=== PATIENT | female | born 1960 | race Caucasian/White ===

== ENCOUNTER → 2017-08-01 07:34 | Outpatient (CLI) | payer OTHER, SELFPAY ==
--- NOTE | 2017-08-01 07:37 | BI_ITS ---
MAMMOGRAPHY - BILATERAL SCREENING 3-D GILMA SYNTHESIS REASON FOR EXAM: Female, 57 years old. Bilateral Screening 3-D tomosynthesis PERTINENT HISTORY: No significant family history. TECHNIQUE: 2-D mammograms and 3-D Gilma synthesis of the breast (s) were performed. CAD was performed. COMPARISON: None. FINDINGS: The breast composition is composed of scattered fibroglandular density. Scattered benign calcifications are seen. No dense spiculated masses or suspicious microcalcifications are identified. No architectural distortion is identified. There is no skin thickening or retraction. There has been no significant change since the prior study. BI/SCREENING MAMM (CAD), BILAT IMPRESSION: No mammographic signs of malignancy. Routine yearly mammograms recommended. ASSESSMENT CATEGORY: BIRADS Category 1: Negative. A letter regarding these results will be sent to the patient by the facility within 30 days. FOLLOW UP RECOMMENDATION: Yearly follow up mammogram recommended. (A) Approximately 10% of breast cancers are not detected by mammography. A normal mammogram should not delay biopsy of a clinically suspicious abnormality. Electronically Signed: Pramod López MD at 8:43 EDT , Service support ,
== END ==
PROVIDERS: Family Provider Family Medicine; PCP Family Medicine; Visit Provider Obstetrics & Gynecology
DX: Z12.31 Encounter for screening mammogram for malignant neoplasm of breast (principal)
CPT/HCPCS: 77063; 77067

== ENCOUNTER → 2018-04-13 14:58 | Outpatient (CLI) | payer OTHER, SELFPAY ==
[2018-03-02 15:11] VITALS: BMI 22.4
== END ==
PROVIDERS: Family Provider Family Medicine; PCP Family Medicine; Referring Provider Family Medicine; Visit Provider Family Medicine
DX: R30.0 Dysuria (principal)
CPT/HCPCS: 87086

== ENCOUNTER → 2018-04-26 14:07 | Outpatient (CLI) | payer OTHER, SELFPAY ==
[2018-04-26 11:55] VITALS: BMI 22.4
--- OUTSIDE RECORDS SUMMARY | 2018-06-28 14:41 | XMS RPT_ITS ---
:1960 Author Organization OHIP Care Team Providers Name Role Phone ALESSANDRO GRAHAM III Referring Unavailable CEBUL IIIALESSANDRO Attending Unavailable CEBUL IIIALESSANDRO Attending Unavailable Paul Almanza Attending Unavailable Paul Almanza Referring Unavailable Cebul III, Alessandro Primary Care Unavailable Catalina Parrish Attending Unavailable Cebul III Alessandro Referring Unavailable Frances Tineo Attending Unavailable Frances Tineo Referring Unavailable Cebul III, Alessandro Primary Care Unavailable Frances Tineo Attending Unavailable Cebul III, Alessandro Referring Unavailable Catalnia Parrish Attending Unavailable Catalina Parrish Referring Unavailable Cebul III, Alessandro Primary Care Unavailable PROBLEMS PROBLEMS DATE TYPE CONDITION / CODE ATTENDING STATUS SOURCE 04/26/2018 Unknown N76.0 - Acute Catalina Parrish Active [facility] / Community N76.0(ICD-10) Hospital Repository 04/20/2018 Active Unknown / CEBUL III, Active [facility] UNK(Unknown) ALESSANDRO A [facility] [place] Repository 03/02/2018 Unknown Z01.419 - Encounter Vance Tineo for gynecological [facility] (general) (routine) Repository without abnormal findings / Z01.419(ICD-10) 01/10/2018 Active Other penitentiary NA Active [facility] (current) drug [facility] [place] therapy / Repository Z79.899(ICD-10) 08/01/2017 Unknown Z12.31 - Encounter Vance Tineo for screening [facility] mammogram [facility] malignant neoplasm Repository of breast / Z12.31(ICD-10) PROCEDURES PROCEDURES No Procedure Records FoundRESULTS RESULTS Observed: 04/26/2018 Status: F Source: [place] CULTURE, GENITAL 2:27 PM [facility] COMPREHENSIVE REPOSITORY Reason for Exam: vaginitis Gram Stain Score= 4 Interpretation: 0-3 Normal, 4-6 Intermediate, 7-10 Positive BV Gram Stain 1+ White Blood Cells 1+ Epithelial cells No organisms seen Gent Cult Comp Normal genital jaclyn isolated Performed By: #### M100.1600 #### [facility] [address] [place], [address] 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 VISIT Observed: 04/26/2018 Status: F Source: [place] REPORT 1:20 PM [facility] REPOSITORY [facility] [address] [place] [address] OFFICE VISIT Date of Service: 04/26/18 MR#: [id number] Acct: [id number] Name: ANGELICA PEDRO Rep #: [id number] : 1960 Provider: YO Parrish Age/Sex: 58/F Location: [facility] Status: Signed Intake Vital Signs04/26/18 Body Mass Index (BMI) 22.4 04/26/18 Height 5 ft 3 in 04/26/18 Weight: 127 lb 8 oz 04/26/18 Body Mass Index (BMI) 22.6 04/26/18 Blood Pressure 112/78 Intake Visit Reasons: ongoing vaginal irritation Photographic Equipment Assembler Required: No Is patient in pain?: No Allergies azithromycin [From Zithromax Z-Mike] Allergy (Verified 04/26/18 11:53) Other Sulfa (Sulfonamide Antibiotics) Allergy (Verified 04/26/18 11:53) Other codeine Adverse Reaction (Verified 04/26/18 11:53) Nausea Medications phenylephrine 10 mg tablet 10 mg PO ONCE 03/02/18 [History Confirmed 04/26/18] estradiol 0.01% (0.1 mg/gram) vaginal cream See Rx Instructions VAGINAL .COMPLEX #42.5 g 04/26/18 [Rx Confirmed 04/26/18] Post menopausal: No Patient : No : No PFSH Medical History Anxiety (Acute) Osteoporosis (Acute) Surgical History H/O hand surgery (Acute) Tibia and fibula open fracture, right (Acute) Family History Father Heart disease Mother Cancer Osteoporosis Social History number of children: 2 current occupational status: employed current occupation: [email or web address] Smoking Status: Never smoker alcohol intake: current alcohol intake frequency: holidays/special occasions only substance use type: does not use seatbelt use: always do you feel safe at home: Yes 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 Saw PCP who gave cipro but urine culture was negative. She is having vaginal dryness and dyspareunia. Pregancy History 2 Elective abortions Hx Para 2 Spontaneous abortions Past Pregnancies Del. DatName GA/WeeksOutcome Route Bt Omega Car LgAnestheDEel LocaProviderFOB e ht en ia tn Unknown Sugar 1989 Unknown Rosalva 1991 ROS Const Constitutional: Reports system reviewed and no additional complaints, except as docu GI GI: Denies abdominal pain or change in bowel habits : Reports as per HPI Exam Const General: cooperative, no acute distress Nutritional Appearance: well nourished Orientation: oriented x3 External Female Exam: normal external appearance Speculum Exam - Vagina: atrophic vaginal mucosa Speculum Exam - Cervix: normal appearance of the cervix Bimanual Exam- Vagina AND Uterus: normal bimanual exam Bimanual Exam- Adnexa, other: normal adnexae Results POCBVBLUE Office BVBlue Test Negative Last Edit by Therese Angel on 04/26/18 12:47 Assessment AND Plan Problems 1. Vaginal irritation N89.8 2. Atrophic vaginitis N95.2 Plan GABI BV and comp vag culture-call only if positive Discussed benefits, risks of vaginal estrogen cream Rx sent RTO 4 weeks Orders Orders: Medications New: estradiol 0.01%(0.1mg/gram) (Estrace) pea sized amount VAGINAL every other day X 4 weeks t hen twice a week; 42.5 grams 2RF Coding Level of Care Code Off vis,est,level 3 Diagnoses Vaginal irritation N89.8 Atrophic vaginitis N95.2 04/26/18 1320 <Electronically signed by Catalina LAL> Date Catalina LAL Cosigner Signature: Date (if applicable) CC: Observed: 04/20/2018 Status: F Source: [place] URINE CULTURE 9:47 PM [facility] REPOSITORY Sp. Request/Comment: - Specimen received in preservative Culture Result - No growth (<1,000 CFU/ml) Performed By: #### URCUL #### [facility] [place] [address] [place], [place] [address] PROGRESS Observed: 04/20/2018 Status: COMPLETED Source: [place] 10:35 AM [facility] REPOSITORY HNO ID: [id number] Author: Alessandro Graham III Service: (none) Author Type: Physician Type: Progress Notes Filed: 04/20/2018 12:52 PM Note Text: SUBJECTIVE: This is a 58 year old female that is here today for 1. 2 wk hx of urinary frequency, dysuria, incontinence. Fluctuating sx. Burning in vaginal introitus. Recently constipated, though she had 3 normal stools yesterday. Staying well hydrated. Menopause at age 52. Painful intercourse. Never had UTI. Denies possibility of STD. 2. pre-flight anxiety--asks about xanax for lup-coming flight. 3. tubular adenoma of colon--2015 PAST MEDICAL HISTORY Diagnosis Date - Acute infective polyneuritis (HCC) 1996 gu[place]an barre - Anxiety 01/11/2013 - Broken leg 06/09/2013 right tibia and fibula - GERD (gastroesophageal reflux disease) - History of colonoscopy with polypectomy 05/09/14 tubular adenoma of cecum - Hyperlipidemia LDL goal < 130 02/07/2014 - Idiopathic hypercalciuria 03/19/2016 - Menopause 01/11/2013 - Osteoporosis - Other acne Current Outpatient Prescriptions on File Prior to Visit: PSEUDOEPHEDRINE HCL (SUDAFED ORAL) Take by mouth as directed. ibuprofen (MOTRIN) 200 mg tablet Take 200 mg by mouth every 6 hours as needed. ALPRAZolam (XANAX) 0.5 mg tablet 1 po 1 hrs before flight prn anxiety Ca-D3-mag sg-vszr-alh-donnell-bor (CALTRATE 600+D PLUS MINERALS) 600 mg calcium- 800 unit-40 mg chew Take by mouth. No current facility-administered medications on file prior to visit. FAMILY HISTORY Problem Relation Age of Onset - Hypertension Mother - Diabetes Mother - Cancer Mother Lymphoma - Heart Father 50 [place] - Ischemic Heart Disease Brother 61 coronary stent - other (alcoholism) Sister - None Sister - None Sister - other (Down's syndrome) Sister Social History Substance Use Topics - Smoking status: Never Smoker - Smokeless tobacco: Never Used - Alcohol use Yes Comment: RARELY BP 134/80 (BP Site: Right Arm, BP Position: Sitting, BP Cuff Size: Regular Adult) Pulse 78 Resp 16 Wt 55.8 kg (123 lb) LMP 09/18/2012 BMI 21.79 kg/m? BP 134/80 (BP Site: Right Arm, BP Position: Sitting, BP Cuff Size: Regular Adult) Pulse 78 Resp 16 Wt 55.8 kg (123 lb) LMP 09/18/2012 BMI 21.79 kg/m? . OBJECTIVE: APPEARANCE Well appearing, alert, in no acute distress, well-hydrated, well nourished. and looks ill ABDOMEN bowel sounds normoactive, no bruits, soft, non-tender, non-distended, without organomegaly or palpable masses, no tenderness to palpation FEMALE Normal external genitalia, normal vagina and normal vaginal tone and normal cervix. No ulcers or discharge ASSESSMENT: probable UTI hx of tubular adenoma pre-flight anxiety PLAN: stay well hydrated cipro 500mg twice/day x 5 days avoid calcium during the course of cipro urine culture give MyChart progress report on 04/22 refer for colonoscopy xanax 0.5 mg before flight Alessandro Graham III MD PDMP website checked and validated. No controlled substance prescriptions were reported. 04/20/2018 by DANII Al MD, III MD CNOV Observed: 04/20/2018 Status: COMPLETED Source: [place] 10:20 AM [facility] REPOSITORY [facility] ANGELICA PEDRO ([id number]) 1960 F Date Time Provider Department 04/20/18 10:20 AM ALESSANDRO GRAHAM IIIESTHER During your visit today, we recorded the following information about you: Pulse Respiration Blood pressure Weight 78/minute 16/minute 134/80 55.8 kg Alessandro Graham III MD 04/20/2018 12:52 PM Signed SUBJECTIVE: This is a 58 year old female that is here today for 1. 2 wk hx of urinary frequency, dysuria, incontinence. Fluctuating sx. Burning in vaginal introitus. Recently constipated, though she had 3 normal stools yesterday. Staying well hydrated. Menopause at age 52. Painful intercourse. Never had UTI. Denies possibility of STD. 2. pre-flight anxiety--asks about xanax for lup-coming flight. 3. tubular adenoma of colon--2015 PAST MEDICAL HISTORY Diagnosis Date - Acute infective polyneuritis (HCC) 1996 [place]re - Anxiety 01/11/2013 - Broken leg 06/09/2013 right tibia and fibula - GERD (gastroesophageal reflux disease) - History of colonoscopy with polypectomy 05/09/14 tubular adenoma of cecum - Hyperlipidemia LDL goal < 130 02/07/2014 - Idiopathic hypercalciuria 03/19/2016 - Menopause 01/11/2013 - Osteoporosis - Other acne Current Outpatient Prescriptions on File Prior to Visit: PSEUDOEPHEDRINE HCL (SUDAFED ORAL) Take by mouth as directed. ibuprofen (MOTRIN) 200 mg tablet Take 200 mg by mouth every 6 hours as needed. ALPRAZolam (XANAX) 0.5 mg tablet 1 po 1 hrs before flight prn anxiety Ca-D3-mag kr-htyu-nwp-donnell-bor (CALTRATE 600+D PLUS MINERALS) 600 mg calcium- 800 unit-40 mg chew Take by mouth. No current facility-administered medications on file prior to visit. FAMILY HISTORY Problem Relation Age of Onset - Hypertension Mother - Diabetes Mother - Cancer Mother Lymphoma - Heart Father 50 [place] - Ischemic Heart Disease Brother 61 coronary stent - other (alcoholism) Sister - None Sister - None Sister - other (Down's syndrome) Sister Social History Substance Use Topics - Smoking status: Never Smoker - Smokeless tobacco: Never Used - Alcohol use Yes Comment: RARELY BP 134/80 (BP Site: Right Arm, BP Position: Sitting, BP Cuff Size: Regular Adult) Pulse 78 Resp 16 Wt 55.8 kg (123 lb) LMP 09/18/2012 BMI 21.79 kg/m? BP 134/80 (BP Site: Right Arm, BP Position: Sitting, BP Cuff Size: Regular Adult) Pulse 78 Resp 16 Wt 55.8 kg (123 lb) LMP 09/18/2012 BMI 21.79 kg/m? . OBJECTIVE: APPEARANCE Well appearing, alert, in no acute distress, well- hydrated, well nourished. and looks ill ABDOMEN bowel sounds normoactive, no bruits, soft, non-tender, non-distended, without organomegaly or palpable masses, no tenderness to palpation FEMALE Normal external genitalia, normal vagina and normal vaginal tone and normal cervix. No ulcers or discharge ASSESSMENT: probable UTI hx of tubular adenoma pre-flight anxiety PLAN: stay well hydrated cipro 500mg twice/day x 5 days avoid calcium during the course of cipro urine culture [facility] on 04/22 refer for colonoscopy xanax 0.5 mg before flight Alessandro Graham III MD PDMP website checked and validated. No controlled substance prescriptions were reported. 04/20/2018 by DANII Al MD, III MD Frank A Cebul, III MD 04/20/2018 10:59 AM Signed PLAN: stay well hydrated cipro 500mg twice/day x 5 days avoid calcium during the course of cipro urine culture give MyChart progress report on 04/22 Alessandro Graham III MD Referring Provider: SELF [200] Allergies As of Date: 04/20/2018 Noted Allergy Reaction FOSAMAX (ALENDRONATE SODIUM) 02/24/2016 5 - Intolerance Comments: heartburn MINOCYCLINE 12/18/2004 SULFA (SULFONAMIDE ANTIBIOTICS) 12/18/2004 5 - Intolerance Comments: stomach pain Date Reviewed: 04/20/2018 Reviewed by: Sugar Nicole - Fully Assessed Reason for Visit: UTI [116] Cmt: burning in vagina and with urination frequency/urgency x 2 weeks Reason For Visit History Recorded Primary Visit Diagnosis:Dysuria [R30.0] Other Visit Diagnoses:History of colonoscopy with polypectomy [Z98.890, Z86.010] Tubular adenoma of colon [D12.6] Anxiety [F41.9] Order(s):URINE CULTURE [SQURCUL] Order #: [id number] UA CHEMSTRIP ONLY [SQUA] Order #: [id number] FUTURE ciprofloxacin HCl (CIPRO) 500 mg tabletTake 1 tablet by mouth twice daily for 5 days.Disp: 10 tabletRfl: 0 CONSULT TO GASTROENTEROLOGY [9010] Order #: [id number]: 1 ALPRAZolam (XANAX) 0.5 mg tablet1 po 1 hrs before flight prn anxietyDisp: 10 tabletRfl: 0 Prescriptions as of 04/20/2018 Sig: ALPRAZOLAM 0.5 MG TABLET 1 po 1 hrs before flight prn * SUDAFED ORAL Take by mouth as directed. IBUPROFEN 200 MG TABLET Take 200 mg by mouth every 6 * CA 600 MG-D3 800 UNIT-MAG OX * Take by mouth. CIPROFLOXACIN 500 MG TABLET Take 1 tablet by mouth twice * Problem List As Of Date 04/20/2018 Noted Resolved Other acne [L70.8] 06/30/2011 ESOPHAGEAL REFLUX [K21.9] INVALID FOR* Palpitations [R00.2] INVALID FOR*06/30/2011 Dermatophytosis of nail [B35.1] INVALID FOR*06/30/2011 Bunion [M21.619] INVALID FOR*06/30/2011 Other hammer toe (acquired) [M20.40] INVALID FOR*06/30/2011 Menometrorrhagia [N92.1] INVALID FOR*10/16/2014 Cervical polyp [N84.1] INVALID FOR*10/16/2014 Menopause [Z78.0] INVALID FOR* Anxiety [F41.9] INVALID FOR* Osteopenia [M85.80] INVALID FOR* Hyperlipidemia with target LDL less than 130 [E*INVALID FOR* Special screening for malignant neoplasms, colo*INVALID FOR*05/09/2014 History of colonoscopy with polypectomy [Z98.89*INVALID FOR* More... Colon polyps [K63.5] INVALID FOR*06/06/2015 Idiopathic hypercalciuria [R82.994] INVALID FOR* Perennial allergic rhinitis [J30.89] INVALID FOR* Dysfunction of eustachian tube [H69.80] INVALID FOR* Family history of ischemic heart disease [Z82.4*INVALID FOR* Abscess of calf [L02.419] INVALID FOR*01/13/2018 Tubular adenoma of colon [D12.6] INVALID FOR* Other instructions from your clinician: PLAN: stay well hydrated cipro 500mg twice/day x 5 days avoid calcium during the course of cipro urine culture give MyChart progress report on 04/22 Alessandro Graham III Prescriptions ordered this encounter Disp Refills Start End CIPROFLOXACIN 500 MG TABLET 10 t* 0 04/20/2018 04/25/2018 Class: Print RX Route: ORAL Sig: Take 1 tablet by mouth twice daily for 5 days. ALPRAZOLAM 0.5 MG TABLET 10 t* 0 04/20/2018 05/21/2018 Class: Print RX Si po 1 hrs before flight prn anxiety Medications Discontinued During This Encounter ALPRAZolam (XANAX) 0.5 mg tablet 30 t* 0 02/27/2016 04/20/2018 Class: Call Rx Si po 1 hrs before flight prn anxiety Disc: Reason for discontinue is not on file. Encounter Status:Closed by ALESSANDRO GRAHAM III, MD on 04/20/18 Observed: 04/13/2018 Status: F Source: [place] CULTURE, URINE 3:06 PM [facility] REPOSITORY Urine Culture Culture exhibits no growth. Performed By: #### M100.0650 #### [facility] [address] 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 [place] [address] OFFICE VISIT Date of Service: 03/02/18 MR#: [id number] Acct: [id number] Name: ANGELICA PEDRO Rep #: [id number] : 1960 Provider: Frances Tnieo MD Age/Sex: 58/F Location: [facility] Status: Signed Intake Vital Signs03/02/18 Height 5 ft 3 in 03/02/18 Weight: 126 lb 6 oz 03/02/18 Body Mass Index (BMI) 22.4 03/02/18 Blood Pressure 110/68 Intake Visit Reasons: ANNUAL Is patient in pain?: No Allergies azithromycin [From Zithromax Z-Mike] Allergy (Verified 03/02/18 15:13) Other Sulfa (Sulfonamide Antibiotics) Allergy (Verified 03/02/18 15:13) Other codeine Adverse Reaction (Verified 03/02/18 15:13) Nausea Medications phenylephrine 10 mg tablet 10 mg PO ONCE 03/02/18 [History Confirmed 03/02/18] Is last menstrual period known: No Post menopausal: No Patient : No : No PFSH Medical History Anxiety (Acute) Osteoporosis (Acute) Surgical History H/O hand surgery (Acute) Tibia and fibula open fracture, right (Acute) Family History Father Heart disease Mother Cancer Osteoporosis Social History number of children: 2 current occupational status: employed current occupation: [email or web address] Smoking Status: Never smoker alcohol intake: current alcohol intake frequency: holidays/special occasions only substance use type: does not use seatbelt use: always do you feel safe at home: Yes 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 DatName GA/WeeksOutcome Route [facility] Car LgAnesthesDel LocaProviderFOB e ht en tn Unknown Sugar 1989 Unknown Rosalva 1991 HPI ANNUAL: Details: ANGELICA PEDRO is a 58 year old who presents for annual exam. Last PAP: 16 normal neg hpv History of abnormal PAP: no Last mammogram: 07/20 nl History of abnormal mammogram: no Colon cancer screening: up to date Other preventative health care screenings: pcp Female Reproductive History Questions: Metorrhagia: No, Sexually active: Yes, Dyspareunia: No, PCB: No Menopausal Symptoms: Yes hot flashes, No night sweats, No weight change, No mood changes, No difficulty concentrating, No sleep problems, No change in libido Menopausal Treatment: Yes OTC treatments ROS Const Constitutional: Reports as per HPI; denies poor appetite, fatigue, increased appetite, weight gain, weight loss or night sweats Cardio Card: Denies chest pain Resp Resp: Denies dyspnea or cough GI GI: Reports as per HPI; denies bloating, abdominal pain, constipation, vomiting or nausea : Reports as per HPI, urinary urgency, urinary incontinence, urinary frequency, other and hot flashes; denies blood in urine, vaginal odor, vaginal itching, vaginal dryness, vaginal discharge, pelvic pain, painful urination, difficulty urinating, prolapse symptoms or nipple discharge Skin Skin/Breast: Denies breast pain, breast skin changes, nipple discharge, breast lump or changing lesions Psych Psych: Denies difficulty concentrating or change in sex drive Exam Const General: cooperative, healthy appearing, comfortable, no acute distress, well developed, well groomed [facility] Head: normal to inspection, normocephalic Ears: hearing grossly normal bilaterally, external ears normal Nose: external nose normal Face and sinus: normal facial exam Neck Neck: normal visual inspection, full ROM, no lymphadenopathy Thyroid: thyroid normal Chest Chest palpation AND inspection: normal inspection of the chest Breast inspection: normal inspection of the breasts, normal inspection of the axillae Breast palpation: normal palpation of the breasts, normal palpation of the axillae, no axillary lymphadenopathy Resp Effort AND Inspection: normal respiratory effort GI Inspection: normal to inspection, non-distended Palpation: no guarding, soft, no hepatosplenomegaly General: bladder normal to palpation External Female Exam: normal external appearance, normal appearance of the urethra, no lesions Urethra: normal appearance of the urethra, normal palpation Speculum Exam - Vagina: normal appearance of the vagina, normal vaginal discharge Speculum Exam - Cervix: normal appearance of the cervix, no cervical discharge, no lesions, nontender Bimanual Exam- Vagina AND Uterus: No cervical tenderness, normal bimanual exam, uterine size normal, bladder normal to palpation, uterine mobility normal, uterine consistency normal, uterus non-tender, no cervical motion tenderness Bimanual Exam- Adnexa, other: normal adnexae, no adnexal masses, adnexae non-tender Skin General: no rashes or lesions noted Neuro General: alert, moves all extremities, no focal motor deficits Extrem General: no pedal edema, normal to inspection Psych Appearance: grossly normal Mental Status: mental status grossly normal Affect: normal affect Speech and Movement: speech and movement normal Attitude: cooperative Assessment AND Plan Problems 1. Encounter for gynecological examination without abnormal finding Z01.419 Plan Cervical cancer screening: pap 2016 nl Breast cancer screening: mamm normal other health maintenance examination reviewed and orders placed if needed. Encouraged maintenance of a healthy weight and active lifestyle and handout given. Annual exam handout including recommendations for good health guidelines, Calcium/vitamin D recommendations, and basic screening information given. Problem list up to date, see problem list details for any additional plan information. Follow up in one year for annual health maintenance exam or sooner if needed. Coding Level of Care Code Off vis,est,prev 40-64yrs Diagnoses Encounter for gynecological examination without abnormal finding Z01.419 Gynecological examination findings: abnormal findings ABSENT 03/02/18 1611 <Electronically signed by Frances Tineo MD> Date Frances Tineo MD Cosigner Signature: Date (if applicable) CC: PROGRESS Observed: 01/13/2018 Status: COMPLETED Source: [place] 2:11 PM [facility] REPOSITORY O ID: [id number] Author: Alessandro Graham III Service: (none) Author Type: Physician Type: Progress Notes Filed: 01/13/2018 2:54 PM Note Text: SUBJECTIVE: Chief Complaint: Angelica Pedro is a 57 year old female who presents for a wellness evaluation. New concerns today include 1. lab review-hyperlipidemia with strong FHx of heart dis. 10 yr risk of ASHD 4.6%--discussion 2. uses xanax only if she flies in a plane. Exercises regularly - Yes Mammogram is due - No Last mammogram was 2017 Colon cancer screening is up to date - Yes Last Colonoscopy was done 2015 Cholesterol screening is up to date - Yes Current Outpatient Prescriptions on File Prior to Visit: PSEUDOEPHEDRINE HCL (SUDAFED ORAL) Take by mouth as directed. ALPRAZolam (XANAX) 0.5 mg tablet 1 po 1 hrs before flight prn anxiety Ca-D3-mag gb-ukdt-urn-donnell-bor (CALTRATE 600+D PLUS MINERALS) 600 mg calcium- 800 unit-40 mg chew Take by mouth. ibuprofen (MOTRIN) 200 mg tablet Take 200 mg by mouth every 6 hours as needed. No current facility-administered medications on file prior to visit. PAST MEDICAL HISTORY Diagnosis Date - Acute infective polyneuritis (HCC) 1996 gu[place] barre - Anxiety 01/11/2013 - Broken leg 06/09/2013 right tibia and fibula - GERD (gastroesophageal reflux disease) - History of colonoscopy with polypectomy 05/09/14 tubular adenoma of cecum - Hyperlipidemia LDL goal < 130 02/07/2014 - Idiopathic hypercalciuria 03/19/2016 - Menopause 01/11/2013 - Osteoporosis - Other acne MENSTRUAL HISTORY PERIOD REGULARITY: FLOW CHARACTERISTICS: DYSMENORRHEA: CYCLIC SYMPTOMS: HORMONE REPLACEMENT: PAST SURGICAL HISTORY Procedure Laterality Date - BMD BONE DENSITY DEXA 02/22/2017 [facility] - COLONOSCOP W/ OR W/O [facility] SPEC 05/09/2014 Colonoscopy - COLONOSCOP W/ OR W/O [facility] SPEC 06/06/15 Colonoscopy - EXCIS TUMOR/AVM,DEEP,HAND/FINGR 1973 BENIGN - PAST SURGICAL HISTORY OF 06/10/2013 Right leg surgery (plate and 5 screws) FAMILY HISTORY Problem Relation Age of Onset - Hypertension Mother - Diabetes Mother - Cancer Mother Lymphoma - Heart Father 50 [place] - Ischemic Heart Disease Brother 61 coronary stent - other (alcoholism) Sister - None Sister - None Sister - other (Down's syndrome) Sister Social History Marital status: Spouse name: Years of education: 12 Number of children: 2 Occupational History 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 [employer]* Social History Main Topics Smoking status: Never Smoker Smokeless tobacco: Never Used Alcohol use: Yes Comment: RARELY Drug use: No Sexual activity: Yes Partners with: Male control/protection: Vasectomy Comment: Postmenopausal Immunization History Administered Date(s) Administered Tdap (Age 7+) 11/17/2010 ACTIVE PROBLEM LIST Esophageal Reflux Menopause Anxiety Osteopenia Hyperlipidemia With Target Ldl Less Than 130 History of Colonoscopy With Polypectomy Idiopathic Hypercalciuria Perennial Allergic Rhinitis Dysfunction of Eustachian Tube Family History of Ischemic Heart Disease Abscess of Calf REVIEW OF SYSTEMS: GENERAL:Denies fever, chills, night sweats, or changes in weight. DERMATOLOGIC: EYES: ENT: RESPIRATORY: Denies any cough, dyspnea, or wheezing. CARDIOVASCULAR: Denies any chest pain with exertion or at rest, palpitations, syncope, or edema. BREASTS: GASTROINTESTINAL: Denies any nausea, vomiting, abdominal pain, heartburn, changes in bowel habit, Denies any rectal bleeding. GENITOURINARY: MUSCULOSKELETAL: Denies any joint swelling, crepitus, joint pain, or loss of range of motion., Denies back pain. NEURO: Denies any headaches, tremors, dizziness, vertigo, memory loss, confusion., Denies weakness, numbness or tingling.. PSYCHIATRIC: Denies any sleeping problems, history of abuse, marital discord., Denies any anxiety or depression. HEMATOLOGIC/LYMPHATIC/IMMUNOLOGIC: Denies anemia, bruising, bleeding abnormalities. ENDOCRINE: Denies any heat or cold intolerance, polyuria or polydipsia. OBJECTIVE: PHYSICAL EXAMINATION: BP 120/75 Pulse 73 Resp 16 Ht 160 cm (5' 3) Wt 56.7 kg (125 lb) LMP 09/18/2012 BMI 22.14 kg/m? GENERAL APPEARANCE: Well appearing, alert, in no acute distress, well-hydrated, well nourished. SKIN: Skin color, texture, turgor normal, no suspicious rashes or lesions HEAD: No significant findings. EYES: EARS: NOSE/SINUSES: OROPHARYNX: NECK: Supple, no lymphadenopathy, normal thyroid, no carotid bruits and no JVD BACK: Back symmetric, Normal curvature, No CVAT. LUNGS: Normal breath sounds, Clear to auscultation, No wheezes, No crackles HEART:Normal PMI, Regular rate and rhythm, Normal heart sounds, S1 and S2 and No murmurs. BREASTS: Exam deferred ABDOMEN: Soft, Non-tender, No palpable masses and No hepatosplenomegaly. EXTREMITIES:Normal, No deformities, No skin discoloration, No edema and Normal pulses bilaterally. NEURO: Awake, alert and oriented x 3, Normal gait and No involuntary motions. GENITALIA: exam deferred RECTAL: exam deferred lab Results for ANGELICA PEDRO ( ) as of 01/13/2018 14:14 Ref. Range 01/10/2018 07:38 Cholesterol, Total Latest Ref Range: <200 mg/dL 206 (H) Triglyceride Latest Ref Range: <150 mg/dL 67 Fasting Time Latest Units: hrs 12 HDL Cholesterol Latest Ref Range: >39 mg/dL 57 LDL Cholesterol Latest Ref Range: <100 mg/dL 136 (H) VLDL Cholesterol Latest Ref Range: <30 mg/dL 13 TC:HDL Ratio Latest Ref Range: <5.10 3.61 LDL:HDL Ratio Latest Ref Range: <2.54 2.39 Non HDL Cholesterol Latest Ref Range: <130 mg/dL 149 (H) Hemoglobin A1C Latest Ref Range: 4.3 - 5.6 % 5.8 (H) Estimated Average Glucose Latest Units: mg/dL 120 ASSESSMENT plane anxiety mild hyperlipidemia FHx of ASHD PLAN: healthy weight losing diet and regular exercise--150 min/wk eat less sugar, bread, potato, pasta, rice, corn, corn syrup, saturated fats use xanax if flying DANII Al MD, III MD CNOV Observed: 01/13/2018 Status: COMPLETED Source: [place] 2:00 PM [facility] REPOSITORY [facility] ANGELICA PEDRO ([id number]) 1960 F Date Time Provider Department 01/13/18 2:00 PM ALESSANDRO GRAHAM III During your visit today, we recorded the following information about you: Pulse Respiration Blood pressure Weight 73/minute 16/minute 120/75 56.7 kg Height 1.6 m Alessandro Graham III MD 01/13/2018 2:54 PM Signed SUBJECTIVE: Chief Complaint: Angelica Pedro is a 57 year old female who presents for a wellness evaluation. New concerns today include 1. lab review-hyperlipidemia with strong FHx of heart dis. 10 yr risk of ASHD 4.6%--discussion 2. uses xanax only if she flies in a plane. Exercises regularly - Yes Mammogram is due - No Last mammogram was 2017 Colon cancer screening is up to date - Yes Last Colonoscopy was done 2015 Cholesterol screening is up to date - Yes Current Outpatient Prescriptions on File Prior to Visit: PSEUDOEPHEDRINE HCL (SUDAFED ORAL) Take by mouth as directed. ALPRAZolam (XANAX) 0.5 mg tablet 1 po 1 hrs before flight prn anxiety Ca-D3-mag ti-mwsi-cym-donnell-bor (CALTRATE 600+D PLUS MINERALS) 600 mg calcium- 800 unit-40 mg chew Take by mouth. ibuprofen (MOTRIN) 200 mg tablet Take 200 mg by mouth every 6 hours as needed. No current facility-administered medications on file prior to visit. PAST MEDICAL HISTORY Diagnosis Date - Acute infective polyneuritis (HCC) 1996 [place] - Anxiety 01/11/2013 - Broken leg 06/09/2013 right tibia and fibula - GERD (gastroesophageal reflux disease) - History of colonoscopy with polypectomy 05/09/14 tubular adenoma of cecum - Hyperlipidemia LDL goal < 130 02/07/2014 - Idiopathic hypercalciuria 03/19/2016 - Menopause 01/11/2013 - Osteoporosis - Other acne MENSTRUAL HISTORY PERIOD REGULARITY: FLOW CHARACTERISTICS: DYSMENORRHEA: CYCLIC SYMPTOMS: HORMONE REPLACEMENT: PAST SURGICAL HISTORY Procedure Laterality Date - BMD BONE DENSITY DEXA 02/22/2017 [facility] - COLONOSCOP W/ OR W/O [facility] SPEC 05/09/2014 Colonoscopy - COLONOSCOP W/ OR W/O BRS SPEC 06/06/15 Colonoscopy - EXCIS TUMOR/AVM,DEEP,HAND/FINGR 1973 BENIGN - PAST SURGICAL HISTORY OF 06/10/2013 Right leg surgery (plate and 5 screws) FAMILY HISTORY Problem Relation Age of Onset - Hypertension Mother - Diabetes Mother - Cancer Mother Lymphoma - Heart Father 50 [place] - Ischemic Heart Disease Brother 61 coronary stent - other (alcoholism) Sister - None Sister - None Sister - other (Down's syndrome) Sister Social History Marital status: Spouse name: Years of education: 12 Number of children: 2 Occupational History 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 [employer]* Social History Main Topics Smoking status: Never Smoker Smokeless tobacco: Never Used Alcohol use: Yes Comment: RARELY Drug use: No Sexual activity: Yes Partners with: Male control/protection: Vasectomy Comment: Postmenopausal Immunization History Administered Date(s) Administered Tdap (Age 7+) 11/17/2010 ACTIVE PROBLEM LIST Esophageal Reflux Menopause Anxiety Osteopenia Hyperlipidemia With Target Ldl Less Than 130 History of Colonoscopy With Polypectomy Idiopathic Hypercalciuria Perennial Allergic Rhinitis Dysfunction of Eustachian Tube Family History of Ischemic Heart Disease Abscess of Calf REVIEW OF SYSTEMS: GENERAL:Denies fever, chills, night sweats, or changes in weight. DERMATOLOGIC: EYES: ENT: RESPIRATORY: Denies any cough, dyspnea, or wheezing. CARDIOVASCULAR: Denies any chest pain with exertion or at rest, palpitations, syncope, or edema. BREASTS: GASTROINTESTINAL: Denies any nausea, vomiting, abdominal pain, heartburn, changes in bowel habit, Denies any rectal bleeding. GENITOURINARY: MUSCULOSKELETAL: Denies any joint swelling, crepitus, joint pain, or loss of range of motion., Denies back pain. NEURO: Denies any headaches, tremors, dizziness, vertigo, memory loss, confusion., Denies weakness, numbness or tingling.. PSYCHIATRIC: Denies any sleeping problems, history of abuse, marital discord., Denies any anxiety or depression. HEMATOLOGIC/LYMPHATIC/IMMUNOLOGIC: Denies anemia, bruising, bleeding abnormalities. ENDOCRINE: Denies any heat or cold intolerance, polyuria or polydipsia. OBJECTIVE: PHYSICAL EXAMINATION: BP 120/75 Pulse 73 Resp 16 Ht 160 cm (5' 3) Wt 56.7 kg (125 lb) LMP 09/18/2012 BMI 22.14 kg/m? GENERAL APPEARANCE: Well appearing, alert, in no acute distress, well-hydrated, well nourished. SKIN: Skin color, texture, turgor normal, no suspicious rashes or lesions HEAD: No significant findings. EYES: EARS: NOSE/SINUSES: OROPHARYNX: NECK: Supple, no lymphadenopathy, normal thyroid, no carotid bruits and no JVD BACK: Back symmetric, Normal curvature, No CVAT. LUNGS: Normal breath sounds, Clear to auscultation, No wheezes, No crackles HEART:Normal PMI, Regular rate and rhythm, Normal heart sounds, S1 and S2 and No murmurs. BREASTS: Exam deferred ABDOMEN: Soft, Non-tender, No palpable masses and No hepatosplenomegaly. EXTREMITIES:Normal, No deformities, No skin discoloration, No edema and Normal pulses bilaterally. NEURO: Awake, alert and oriented x 3, Normal gait and No involuntary motions. GENITALIA: exam deferred RECTAL: exam deferred lab Results for ANGELICA PEDRO ( ) as of 01/13/2018 14:14 Ref. Range 01/10/2018 07:38 Cholesterol, Total Latest Ref Range: <200 mg/dL 206 (H) Triglyceride Latest Ref Range: <150 mg/dL 67 Fasting Time Latest Units: hrs 12 HDL Cholesterol Latest Ref Range: >39 mg/dL 57 LDL Cholesterol Latest Ref Range: <100 mg/dL 136 (H) VLDL Cholesterol Latest Ref Range: <30 mg/dL 13 TC:HDL Ratio Latest Ref Range: <5.10 3.61 LDL:HDL Ratio Latest Ref Range: <2.54 2.39 Non HDL Cholesterol Latest Ref Range: <130 mg/dL 149 (H) Hemoglobin A1C Latest Ref Range: 4.3 - 5.6 % 5.8 (H) Estimated Average Glucose Latest Units: mg/dL 120 ASSESSMENT plane anxiety mild hyperlipidemia FHx of ASHD PLAN: healthy weight losing diet and regular exercise--150 min/wk eat less sugar, bread, potato, pasta, rice, corn, corn syrup, saturated fats use xanax if flying DANII Al MD, III MD Referring Provider: SELF [200] Allergies As of Date: 01/13/2018 Noted Allergy Reaction FOSAMAX (ALENDRONATE SODIUM) 02/24/2016 5 - Intolerance Comments: heartburn MINOCYCLINE 12/18/2004 SULFA (SULFONAMIDE ANTIBIOTICS) 12/18/2004 5 - Intolerance Comments: stomach pain Date Reviewed: 01/13/2018 Reviewed by: Lisa ([facility]) RIVAS Angel - Fully Assessed Reason for Visit: Physical [83] Primary Visit Diagnosis:Encounter for routine adult health examination without abnormal findings [Z00.00] Other Visit Diagnoses:Anxiety [F41.9] Hyperlipidemia with target LDL less than 130 [E78.5] Family history of ischemic heart disease [Z82.49] Prescriptions as of 01/13/2018 Sig: SUDAFED ORAL Take by mouth as directed. ALPRAZOLAM 0.5 MG TABLET 1 po 1 hrs before flight prn * CA 600 MG-D3 800 UNIT-MAG OX * Take by mouth. IBUPROFEN 200 MG TABLET Take 200 mg by mouth every 6 * Problem List As Of Date 01/13/2018 Noted Resolved Other acne [L70.8] 06/30/2011 ESOPHAGEAL REFLUX [K21.9] INVALID FOR* Palpitations [R00.2] INVALID FOR*06/30/2011 Dermatophytosis of nail [B35.1] INVALID FOR*06/30/2011 Bunion [M21.619] INVALID FOR*06/30/2011 Other hammer toe (acquired) [M20.40] INVALID FOR*06/30/2011 Menometrorrhagia [N92.1] INVALID FOR*10/16/2014 Cervical polyp [N84.1] INVALID FOR*10/16/2014 Menopause [Z78.0] INVALID FOR* Anxiety [F41.9] INVALID FOR* Osteopenia [M85.80] INVALID FOR* Hyperlipidemia with target LDL less than 130 [E*INVALID FOR* Special screening for malignant neoplasms, colo*INVALID FOR*05/09/2014 History of colonoscopy with polypectomy [Z98.89*INVALID FOR* More... Colon polyps [K63.5] INVALID FOR*06/06/2015 Idiopathic hypercalciuria [R82.994] INVALID FOR* Perennial allergic rhinitis [J30.89] INVALID FOR* Dysfunction of eustachian tube [H69.80] INVALID FOR* Family history of ischemic heart disease [Z82.4*INVALID FOR* Abscess of calf [L02.419] INVALID FOR*01/13/2018 Encounter Status:Closed by ALESSANDRO GRAHAM III, MD on 01/13/18 PROGRESS Observed: 01/12/2018 Status: COMPLETED Source: [place] 8:18 AM [facility] REPOSITORY O ID: [id number] Author: Alessandro Graham III Service: (none) Author Type: Physician Type: Progress Notes Filed: 01/12/2018 8:18 AM Note Text: Angelica, The bad LDL cholesterol is better than it has been in 5 years. Hemoglobin A1c is fine. We will discuss in more detail at the upcoming appointment. Alessandro Graham III, MD, FAAFP HEMOGLOBIN A1C Collected: 01/10/2018 Status: F Source: [place] 7:38 AM [facility] REPOSITORY TYPE CODE TESTS RESULT OUT OF REFERENCE UNITS RANGE LAB HGBA1C 4.3-5.6 % High Hemoglobin A1c 5.8 LAB HBA0 mg/dL Est. Average Glucose 120 Result Comment: eAG: (Estimated average glucose) is a calculated value from HgbA1c and is patient service representative of the average blood glucose level in the last 2-3 month period. Performed By: #### HBA1C, LIPB #### [facility] [address] [place] [id number] LIPID PANEL, BASIC Collected: 01/10/2018 Status: F Source: [place] 7:38 AM [facility] REPOSITORY TYPE CODE TESTS RESULT OUT OF REFERENCE UNITS RANGE LAB CHOL <200 mg/dL Cholesterol High 206 Result Comment: <200 mg/dL, Desirable 200-239 mg/dL, Borderline high >239 mg/dL, High LAB TRIGLY <150 mg/dL Triglyceride 67 Result Comment: <150 mg/dL, Normal 150-199 mg/dL, Borderline high 200-499 mg/dL, High >499 mg/dL, Very high LAB HDL >39 mg/dL HDL-Cholesterol 57 Result Comment: 40-59 mg/dL, Acceptable >59 mg/dL, High: Negative risk factor for coronary heart disease <40 mg/dL, Low: Positive risk factor for coronary heart disease LAB LDL <100 mg/dL LDL-Cholesterol High 136 Result Comment: <100 mg/dL, Optimal 100-129 mg/dL, Near optimal/above optimal 130-159 mg/dL, Borderline high 160-189 mg/dL, High >189 mg/dL, Very high Secondary prevention optimal LDL Cholesterol levels are recommended to be < 70 mg/dL LAB NONHDL <130 mg/dL Non HDL High Cholesterol 149 Result Comment: <130 mg/dL, Optimal 130-159 mg/dL, Near optimal/above optimal 160-189 mg/dL, Borderline high 190-219 mg/dL, High >219 mg/dL, Very high Secondary prevention optimal non HDL Cholesterol levels are recommended to be < 100 mg/dL LAB FT hrs Fasting Time 12 LAB VLDL <30 mg/dL VLDL Cholesterol 13 LAB TCHDL <5.10 TC:HDL Ratio 3.61 LAB LDLHDL <2.54 LDL:HDL Ratio 2.39 Result Comment: Reference: 1. National Cholesterol Education Program ATP III Guideline At-A-Glance Quick Desk Reference: National Heart, Lung, and Blood [place]. National Institutes of Health. 2001: NIH Publication No. 01-3305. 2. An International Atherosclerosis Society position paper: global recommendations for the management of dyslipidemia: executive summary, Atherosclerosis. 2014: 232(2):410-413. Performed By: #### HBA1C, LIPB #### [facility] [address] [place], [place] [address] CNPTOUTREACH Observed: 12/27/2017 Status: COMPLETED Source: [place] 12:00 AM [facility] REPOSITORY Patient Outreach ([facility]) ANGELICA PEDRO ([id number]) 1960 F Date Time Provider Department 12/27/17 ALESSANDRO GRAHAM III [facility] During your visit today, we recorded the following information about you: Allergies As of Date: 12/27/2017 Noted Allergy Reaction FOSAMAX (ALENDRONATE SODIUM) 02/24/2016 5 - Intolerance Comments: heartburn MINOCYCLINE 12/18/2004 SULFA (SULFONAMIDE ANTIBIOTICS) 12/18/2004 5 - Intolerance Comments: stomach pain Date Reviewed: 12/21/2016 Reviewed by: Avila Cisse LPN - Fully Assessed Visit Diagnosis:Medication management [Z79.899] Order(s):LIPID PANEL BASIC [SQLIPB] Order #: [id number] FUTURE Prescriptions as of 12/27/2017 Sig: SUDAFED ORAL Take by mouth as directed. IBUPROFEN 200 MG TABLET Take 200 mg by mouth every 6 * ALPRAZOLAM 0.5 MG TABLET 1 po 1 hrs before flight prn * CA 600 MG-D3 800 UNIT-MAG OX * Take by mouth. Problem List As Of Date 12/27/2017 Noted Resolved Other acne [L70.8] 06/30/2011 ESOPHAGEAL REFLUX [K21.9] INVALID FOR* Palpitations [R00.2] INVALID FOR*06/30/2011 Dermatophytosis of nail [B35.1] INVALID FOR*06/30/2011 Bunion [M21.619] INVALID FOR*06/30/2011 Other hammer toe (acquired) [M20.40] INVALID FOR*06/30/2011 Menometrorrhagia [N92.1] INVALID FOR*10/16/2014 Cervical polyp [N84.1] INVALID FOR*10/16/2014 Menopause [Z78.0] INVALID FOR* Anxiety [F41.9] INVALID FOR* Osteopenia [M85.80] INVALID FOR* Hyperlipidemia with target LDL less than 130 [E*INVALID FOR* Special screening for malignant neoplasms, colo*INVALID FOR*05/09/2014 History of colonoscopy with polypectomy [Z98.89*INVALID FOR* More... Colon polyps [K63.5] INVALID FOR*06/06/2015 Idiopathic hypercalciuria [R82.994] INVALID FOR* Perennial allergic rhinitis [J30.89] INVALID FOR* Dysfunction of eustachian tube [H69.80] INVALID FOR* Family history of ischemic heart disease [Z82.4*INVALID FOR* Abscess of calf [L02.419] INVALID FOR* Encounter Status:Closed by DIALLO CRUZ on 01/27/18 SCREENING MAMM (CAD), Observed: 08/01/2017 Status: F Source: [place] BILAT 7:37 AM [facility] REPOSITORY [facility] Imaging Services [address] [place] [address] SCREENING MAMM (CAD), BILAT MR#: [id number] Acct: [id number] Name: ANGELICA PEDRO Rep #: [id number] : 1960 F 57 From: Flash López MD PCP: Alessandro Graham III, MD Status: REG CLI Study: SCREENING MAMM (CAD), BILAT Date of Exam: 08/01/17 Exam# [id number] Ordering Dr: Frances Tineo MD MAMMOGRAPHY - BILATERAL SCREENING 3-D RUDDY SYNTHESIS REASON FOR EXAM: Female, 57 years old. Bilateral Screening 3-D tomosynthesis PERTINENT HISTORY: No significant family history. TECHNIQUE: 2-D mammograms and 3-D Ruddy synthesis of the breast (s) were performed. CAD was performed. COMPARISON: None. FINDINGS: The breast composition is composed of scattered fibroglandular density. Scattered benign calcifications are seen. No dense spiculated masses or suspicious microcalcifications are identified. No architectural distortion is identified. There is no skin thickening or retraction. There has been no significant change since the prior study. BI/SCREENING MAMM (CAD), BILAT IMPRESSION: No mammographic signs of malignancy. Routine yearly mammograms recommended. ASSESSMENT CATEGORY: BIRADS Category 1: Negative. A letter regarding these results will be sent to the patient by the facility within 30 days. FOLLOW UP RECOMMENDATION: Yearly follow up mammogram recommended. (A) Approximately 10% of breast cancers are not detected by mammography. A normal mammogram should not delay biopsy of a clinically suspicious abnormality. Electronically Signed: Pramod López MD at 8:43 EDT , Service support , CC: Alessandro Graham III, MD; Frances Tineo MD Electrotyper: Signed ALLERGIES ALLERGIES DATE TYPE / NAME / CODE REACTION SEVERITY SOURCE CODE 04/26/2018 Drug Sulfa Other Unknown [place] Allergy/41 (Sulfonamide Community 6933097( Antibiotics)/F[address]) 333920(RXNORM) Repository 04/26/2018 Drug codeine/[id number] Nausea Unknown Jessica Allergy/41 0(RXNORM) Community 5106069([facility] [place]) Repository 04/26/2018 Drug azithromycin/F006 Other Unknown [place] Allergy/41 583801(RXNORM) Community 4018923(SN Hospital OMED CT) Repository 02/24/2016 DRUG ALENDRONATE INTOLERANCE [facility] INGREDI/41 SODIUM [place] 0846927(SN Repository OMED CT) 12/18/2004 DRUG MINOCYCLINE [facility] INGREDI/41 [place] 9848949(SN Repository OMED CT) 12/18/2004 Drug SULFA INTOLERANCE [facility] Class/4195 (SULFONAMIDE [place] 65999(SNOM ANTIBIOTICS) Repository ED CT) ENCOUNTERS ENCOUNTERS ADMIT/DISCHARGE ACCOUNT ADMITTING ENCOUNTER LOCATION SOURCE NUMBER CLASS 04/26/[id number] [facility] ing:LABSPEC Repository 04/26/2018/04/26/19 [id number] Ambulatory BMSBuilding:B [place] [address] [facility] Repository 04/20/2018/04/21/19 [id number] Ambulatory [address] Repository 04/13/[id number] [facility] ing:MTLAB Repository 03/02/2018/03/02/20 [id number] Ambulatory BMSBuilding:B Jessica [address] [facility] Repository 01/13/2018/01/17/20 [id number] Ambulatory [address] Repository 01/10/2018/01/11/20 [id number] Ambulatory [address] Repository 08/01/[id number] [facility] ing:OPBI Repository PAYERS PAYERS ENCOUNTER GUARANTOR PAYER SUBSCRIBER SOURCE 04/26/2018 ANGELICA [id number] Primary ANGELICA LEUNGB: Jessica TAMARACK Insurance:CommScopeRASHIDARed Aril [id number] [place], [place] Number: [facility] [address]Kqw: [phone]) [id number] Repository [phone] () Date:1235-30-84[address]BYQ[place], [place] [address]ID: 04/26/2018 Secondary NOT GIVENUNK Osteen Insurance:SELF PAY [facility] Number: Effective Repository Date:2018-04-26 04/26/2018 ANGELICA [id number] Primary ANGELICA LEUNGB: Osteen TAMARACK Insurance:CommScopeNAPolicy [id number] [place] Number[facility] Hospital [address]Ybk: 330 [id number] Repository [phone] (HP) Date:1687-69-80JO [address], [place] [address]EP: 04/26/2018 Secondary NOT GIVENUNK Jessica Insurance:SELF PAY [facility]: Effective Repository Date:2018-04-26 04/13/2018 ANGELICA [id number] Primary ANGELICA Arceo ICKESDOB: Jessica TAMARACK Insurance:CIGNAPolicy [id number] [place] Number: Hospital [address]Gei: 330 [id number] Repository [phone] (HP) Date:2654-48-90QN [address]FZB[place], [place] [address]IR: 04/13/2018 Secondary NOT GIVENUNK Osteen Insurance:SELF PAY [facility] Number: Effective Repository Date:2018-04-13 03/02/2018 Angelica Arceo [id number] Primary Angelica Arceo IcbernyDOB: Osteen Pioneer Insurance:CIGNAPolicy [id number] [place] Number: Hospital [address]Kgt: ([phone] [id number] Repository [phone] () Date:9957-50-52[address]JHZL[place]OT[place], [place] [address]YO: 03/02/2018 Secondary NOT GIVENUNK Osteen Insurance:SELF PAY [facility] Number: Effective Repository Date:2018-03-02 08/01/2017 Angelica Arceo [id number] Primary Angelica Arceo IcbernyDOB: Osteen Pioneer Insurance:CIGNAPolicy [id number] [place] Number: Hospital [address]Ldc: 330 [id number] Repository [phone] () Date:2129-67-61EM [address]EDDBVMFUFVF, [place] [address]QN: 08/01/2017 Secondary NOT GIVENUNK Jessica Insurance:SELF PAY [facility] Number: Effective Repository Date:2016-12-15
== END ==
PROVIDERS: Family Provider Family Medicine; PCP Family Medicine; Referring Provider Nurse Practitioner Women's Health; Visit Provider Nurse Practitioner Women's Health
DX: N76.0 Acute vaginitis (principal)
CPT/HCPCS: 87070; 87205

== ENCOUNTER → 2018-08-15 07:21 | Outpatient (CLI) | payer OTHER, SELFPAY ==
[2018-04-26 11:55] VITALS: BMI 22.4
--- NOTE | 2018-08-15 07:28 | BI_ITS ---
MAMMOGRAPHY - BILATERAL SCREENING REASON FOR EXAM: Female, 58 years old. Routine annual screening examination. PERTINENT HISTORY: Non-contributory. TECHNIQUE: Digital bilateral breast gilma (3D mammographic acquisition) in the CC and MLO projections. 2-D mediolateral oblique (MLO) and craniocaudad (CC) views of both breasts were obtained. CAD: Full Field Digital Mammography with Computer Added Detection was performed. COMPARISON: Comparison is made with prior examination of August 01, 2017. FINDINGS: Breast Composition: There are scattered areas of fibroglandular density. There are no dominant masses or suspicious calcifications. No other significant abnormalities are identified. There has been no significant change since the prior study. BI/SCREEN MAMM (CAD) W/GILMA BILAT IMPRESSION: Stable bilateral screening mammogram. Yearly follow-up mammogram recommended. (A) ASSESSMENT CATEGORY: BIRADS Category 1: Negative. A letter regarding these results will be sent to the patient by the facility within 30 days. Approximately 10% of breast cancers are not detected by mammography. A normal mammogram should not delay biopsy of a clinically suspicious abnormality. [id number] Electronically Signed: Geoff Oreilly, at 8:55 EDT , Service support ,
== END ==
PROVIDERS: Family Provider Family Medicine; PCP Family Medicine; Referring Provider Obstetrics & Gynecology; Visit Provider Obstetrics & Gynecology
DX: Z12.31 Encounter for screening mammogram for malignant neoplasm of breast (principal)
CPT/HCPCS: 77063; 77067

== ENCOUNTER → 2019-08-17 08:21 | Outpatient (CLI) | payer OTHER, SELFPAY ==
[2018-04-26 11:55] VITALS: BMI 22.4
--- NOTE | 2019-08-17 08:23 | BI_ITS ---
MAMMOGRAPHY - BILATERAL SCREENING REASON FOR EXAM: Female, 59 years old. Routine annual screening examination. PERTINENT HISTORY: Non-contributory. TECHNIQUE: Digital bilateral breast gilma (3D mammographic acquisition) in the CC and MLO projections. 2-D mediolateral oblique (MLO) and craniocaudad (CC) views of both breasts were obtained. CAD: Full Field Digital Mammography with Computer Added Detection was performed. COMPARISON: Comparison is made with prior examination dated August 15, 2018 and August 01, 2017. FINDINGS: Breast Composition: There are scattered areas of fibroglandular density. There are no dominant masses or suspicious calcifications. No other significant abnormalities are identified. There has been no significant change since the prior study. BI/SCREEN MAMM (CAD) W/GILMA BILAT IMPRESSION: Stable bilateral screening mammogram. Yearly follow-up mammogram recommended. (A) ASSESSMENT CATEGORY: BIRADS Category 1: Negative. A letter regarding these results will be sent to the patient by the facility within 30 days. Approximately 10% of breast cancers are not detected by mammography. A normal mammogram should not delay biopsy of a clinically suspicious abnormality. [id number] Electronically Signed: Geoff Oreilly, at 9:57 EDT , Service support ,
== END ==
PROVIDERS: PCP Family Medicine; Referring Provider Obstetrics & Gynecology; Visit Provider Obstetrics & Gynecology
DX: Z12.31 Encounter for screening mammogram for malignant neoplasm of breast (principal)
CPT/HCPCS: 77063; 77067

== ENCOUNTER → 2020-08-19 07:25 | Outpatient (CLI) | payer OTHER, SELFPAY ==
[2019-09-11 11:41] VITALS: BMI 22.4
--- NOTE | 2020-08-19 07:29 | BI_ITS ---
MAMMOGRAPHY - BILATERAL SCREENING 3-D TOMOSYNTHESIS REASON FOR EXAM: Female, 60 years old. SCREENING PERTINENT HISTORY: No significant family history. TECHNIQUE: 2-D mammograms and 3-D Tomosynthesis of the breast (s) were performed. CAD was performed. COMPARISON: 08/17/2019 FINDINGS: The breast composition is composed of scattered fibroglandular density. Scattered benign calcifications are seen. No dense spiculated masses or suspicious microcalcifications are identified. No architectural distortion is identified. There is no skin thickening or retraction. There has been no significant change since the prior study. BI/SCRN MAMM (CAD)W/GILMA BILAT IMPRESSION: No mammographic signs of malignancy. Routine yearly mammograms recommended. ASSESSMENT CATEGORY: BIRADS Category 1: Negative. A letter regarding these results will be sent to the patient by the facility within 30 days. FOLLOW UP RECOMMENDATION: Yearly follow up mammogram recommended. (A) Approximately 10% of breast cancers are not detected by mammography. A normal mammogram should not delay biopsy of a clinically suspicious abnormality. Electronically Signed: Pramod López MD at 9:01 EDT , Service support ,
== END ==
PROVIDERS: PCP Family Medicine; Referring Provider Family Medicine; Visit Provider Family Medicine
DX: Z12.31 Encounter for screening mammogram for malignant neoplasm of breast (principal)
CPT/HCPCS: 77063; 77067

== ENCOUNTER → 2020-10-01 16:07 | Outpatient (CLI) | payer OTHER, SELFPAY ==
[2020-10-01 15:31] VITALS: BMI 22.1
[2020-10-07 07:48] LABS: HPV APTIMA, High Risk Negative (Negative)
== END ==
PROVIDERS: PCP Family Medicine; Referring Provider Nurse Practitioner Women's Health; Visit Provider Nurse Practitioner Women's Health
DX: Z12.4 Encounter for screening for malignant neoplasm of cervix (principal)
CPT/HCPCS: 87624; 88175; G0145

== ENCOUNTER → 2021-09-22 | Outpatient (CLI) | payer OTHER, SELFPAY ==
--- NOTE | 2021-09-22 07:22 | BI_ITS ---
MAMMOGRAPHY - BILATERAL SCREENING REASON FOR EXAM: Female, 61 years old. Routine annual screening examination. PERTINENT HISTORY: Non-contributory. TECHNIQUE: Digital bilateral breast gilma (3D mammographic acquisition) in the CC and MLO projections. 2-D mediolateral oblique (MLO) and craniocaudad (CC) views of both breasts were obtained. CAD: Full Field Digital Mammography with Computer Added Detection was performed. COMPARISON: Comparison Mammogram study is dated 08/19/2020, 08/17/2019, 08/15/2018, 08/01/2017. FINDINGS: Breast Composition: There are scattered areas of fibroglandular density. There are no dominant masses or suspicious calcifications. No other significant abnormalities are identified. There has been no significant change since the prior study. BI/SCRN MAMM (CAD)W/GILMA BILAT IMPRESSION: Stable bilateral screening mammogram. Yearly follow-up mammogram recommended. (A) ASSESSMENT CATEGORY: BIRADS Category 1: Negative. A letter regarding these results will be sent to the patient by the facility within 30 days. Approximately 10% of breast cancers are not detected by mammography. A normal mammogram should not delay biopsy of a clinically suspicious abnormality. [id number] Electronically Signed: Nain Boone, at 9:23 EDT ,
== END | disposition home or self-care (01) ==
LOC: OPBI 07:20
PROVIDERS: PCP Family Medicine; Referring Provider Obstetrics & Gynecology; Visit Provider Obstetrics & Gynecology
DX: Z12.31 Encounter for screening mammogram for malignant neoplasm of breast (principal)
CPT/HCPCS: 77063; 77067

== ENCOUNTER → 2021-12-11 | Outpatient (CLI) | payer OTHER, SELFPAY ==
[2021-12-11 10:24] LABS: Vitamin D,25 Hydroxy 32.9 ng/mL
[2021-12-11 10:28] LABS: Anion Gap 5 (5-15); BUN 19 mg/dL (7-18); BUN/Creat Ratio 24.1 RATIO (10-20); Calcium,Total 8.9 mg/dL (8.5-10.1); Chloride 106 mmol/L (98-107); Cholesterol 234 mg/dL (200); Creatinine, Serum 0.79 mg/dL (0.55-1.02); EST Glomerular Filtration Rate 79 mL/min (>60); Est Glom Filt Rate - Afr Amer 96 mL/min (>60); Glucose 89 mg/dL (74-106); High Density Lipoprotein 59 mg/dL; Potassium 4.1 mmol/L (3.5-5.1); Sodium Level 141 mmol/L (136-145); Thyroid Stim Hormone (TSH) 3.01 uIU/mL (0.358-3.74); Triglycerides 78 mg/dL; Very Low Density Lipoprotein 16 mg/dL (5-40)
[2021-12-11 10:38] LABS: PTHIN 35.3 pg/mL (18.4-80.1)
== END | disposition home or self-care (01) ==
LOC: MTLAB 07:10
PROVIDERS: PCP Family Medicine; Referring Provider Family Medicine; Visit Provider Family Medicine
DX: M85.80 Other specified disorders of bone density and structure, unspecified site (principal); Z13.220 Encounter for screening for lipoid disorders
CPT/HCPCS: 36415; 80048; 80061; 82306; 82330; 83970; 84443

== ENCOUNTER → 2022-01-05 | Outpatient (CLI) | payer OTHER, SELFPAY ==
--- NOTE | 2022-01-05 08:32 | BD_ITS ---
STUDY: DUAL ENERGY X-RAY ABSORPTIOMETRY / DXA REASON FOR EXAM: Female, 61 years old. 733.90OsteopeniaBONE DENSITY REASON FOR EXAM TECHNIQUE: Bone Mineral Density (BMD) measurements of lumbar spine and bilateral hips were obtained. COMPARISON: Comparison is made with prior study dated 02/22/2017. FINDINGS: Lumbar Spine (L1-L4): g/cm2 (0.856) / T-score (-1.7) / Z-score (-0.3) Findings are suggestive of osteopenia with a moderate fracture risk. Left Femur Total: g/cm2 (0.789) / T-score (-1.3) / Z-score (-0.3) Left Femoral Neck: g/cm2 (0.633) / T-score (-1.9) / Z-score (-0.7) Right Femur Total: g/cm2 (0.765) / T-score (-1.5) / Z-score (-0.5) Right Femoral Neck: g/cm2 (0.614) / T-score (-2.1) / Z-score (-0.8) The T-Scores on the most recent prior examination were: Lumbar Spine (L1-L4): There has been worsening of bone density since the previous examination. Left Femur Total: which represents an improvement of 0.6%. Right Femur Total: which represents a worsening of 0.1%. BD/Dexa Bone Density Study IMPRESSION: The patient is considered osteopenic as outlined below according to World Erwin Organization (WHO) criteria with a moderate fracture risk. There has been worsening of bone density since the previous examination. Reference Information: The T-score is the number of standard deviations above or below the standard which is normal for young adults at their peak bone mineral density. The World Health Organization (WHO) interprets the T-scores as follows: Above -1 Normal bone density Between -1 and -2.5 Osteopenia Equal to / or below -2.5 Osteoporosis As a practical clinical guideline, osteopenia may be graded as follows: Mild -1 through -1.5 Moderate -1.6 through -2.0 Severe -2.1 through -2.4 The Z-score is the number of standard deviations above or below age-matched controls. A Z-score of less than -1.5 would be considered abnormal. References: 1. NIH Osteoporosis and Related Bone Diseases www osteo.org 2. International Society for Clinical Densitometry www iscd.org 3. National Osteoporosis Foundation www nof.org Electronically Signed: Geoff Oreilly MD at 8:32 EDT ,
== END | disposition home or self-care (01) ==
LOC: OPBD 08:27
PROVIDERS: PCP Family Medicine; Visit Provider Family Medicine
DX: M85.80 Other specified disorders of bone density and structure, unspecified site (principal)
CPT/HCPCS: 77080

== ENCOUNTER → 2022-09-30 | Outpatient (CLI) | payer MEDICAID, SELFPAY ==
--- NOTE | 2022-09-30 08:41 | BI_ITS ---
MAMMOGRAPHY - BILATERAL SCREENING REASON FOR EXAM: Female, 62 years old. Routine annual screening examination. PERTINENT HISTORY: Non-contributory. TECHNIQUE: Digital bilateral breast gilma (3D mammographic acquisition) in the CC and MLO projections. 2-D mediolateral oblique (MLO) and craniocaudad (CC) views of both breasts were obtained. CAD: Full Field Digital Mammography with Computer Added Detection was performed. COMPARISON: Comparison is made with prior study dated September 22, 2021 and August 19, 2020. FINDINGS: Breast Composition: There are scattered areas of fibroglandular density. There are no dominant masses or suspicious calcifications. No other significant abnormalities are identified. There has been no significant change since the prior study. BI/SCRN MAMM (CAD)W/GILMA BILAT IMPRESSION: Stable bilateral screening mammogram. Yearly follow-up mammogram recommended. (A) ASSESSMENT CATEGORY: BIRADS Category 1: Negative. A letter regarding these results will be sent to the patient by the facility within 30 days. Approximately 10% of breast cancers are not detected by mammography. A normal mammogram should not delay biopsy of a clinically suspicious abnormality. [id number] Electronically Signed: Geoff Oreilly MD at 9:33 EDT ,
== END | disposition home or self-care (01) ==
LOC: OPBI 08:39
PROVIDERS: PCP Internal Medicine; Referring Provider Obstetrics & Gynecology; Visit Provider Obstetrics & Gynecology
DX: Z12.31 Encounter for screening mammogram for malignant neoplasm of breast (principal)
CPT/HCPCS: 77063; 77067

== ENCOUNTER → 2023-08-31 | Outpatient (CLI) | payer OTHER, SELFPAY ==
[2023-08-31 09:17] LABS: Absolute Lymphocyte Count 1.78 X10^3/uL (0.83-4.51); Absolute Neutrophil Count 2.3 X10^3/uL (2.0-7.7); Basophil# 0.03 X10^3/uL; Basophil% 0.6 % (0-1); Eosinophil# 0.09 X10^3/uL; Eosinophils% 1.9 % (0-5); Hematocrit 42.4 % (37-47); Hemoglobin 13.5 g/dL (12.0-15.0); Lymphocyte # 1.78 X10^3/ul (0.83-4.51); Lymphocyte % 37.2 % (19-41); Mean Corp Hgb Conc 31.8 g/dL (32-36); Mean Corpuscular Hgb 29.1 pg (27.0-32.0); Mean Corpuscular Volume 91.4 fL (81-99); Mean Platelet Vol. 11.4 fl (6.2-12.0); Monocyte# 0.54 X10^3/uL; Monocyte% 11.3 % (0-10); NRBC Flagged by Analyzer 0 % (0-5); Neutrophil # 2.33 X10^3/uL (2.7-7.7); Neutrophil % 48.8 % (47-70); Platelet Count 191 K/mm3 (150-450); RBC Distribution Width CV 12.8 % (11.6-14.6); RBC Distribution Width SD 42.5 fl (35.1-43.9); Red Blood Count 4.64 M/mm3 (4.2-5.4); White Blood Count 4.8 K/mm3 (4.4-11.0)
[2023-08-31 10:23] LABS: ALB/GLOB Ratio 1.1 RATIO (0.9-2.4); AST(SGOT) 19 U/L (15-37); Alanine Aminotransfer ALT/SGPT 19 U/L (13-56); Albumin, Serum 3.7 g/dL (3.2-5.0); Alkaline Phosphatase 119 U/L (45-117); Anion Gap 6 (5-15); BUN 21 mg/dL (7-18); BUN/Creat Ratio 27.2 RATIO (10-20); Calcium,Total 8.8 mg/dL (8.5-10.1); Chloride 105 mmol/L (98-107); Cholesterol 248 mg/dL (200); Creatinine, Serum 0.77 mg/dL (0.55-1.02); EST Glomerular Filtration Rate 81 mL/min (>60); Est Glom Filt Rate - Afr Amer 98 mL/min (>60); Globulin 3.5 g/dL (2.2-4.2); Glucose 93 mg/dL (74-106); High Density Lipoprotein 68 mg/dL; Potassium 3.8 mmol/L (3.5-5.1); Protein, Total 7.2 g/dL (6.4-8.2); Sodium Level 138 mmol/L (136-145); Thyroid Stim Hormone (TSH) 2.64 uIU/mL (0.358-3.74); Triglycerides 75 mg/dL; Very Low Density Lipoprotein 15 mg/dL (5-40)
[2023-08-31 17:14] LABS: Vitamin D,25 Hydroxy 42.3 ng/mL
== END | disposition home or self-care (01) ==
PROVIDERS: PCP Internal Medicine; Visit Provider Internal Medicine
DX: Z00.00 Encounter for general adult medical examination without abnormal findings (principal); Z13.220 Encounter for screening for lipoid disorders; M85.80 Other specified disorders of bone density and structure, unspecified site; E55.9 Vitamin D deficiency, unspecified
CPT/HCPCS: 36415; 80053; 80061; 82306; 84443; 85025

== ENCOUNTER 2023-10-31 08:37 | Day surgery (SDC) | payer OTHER, SELFPAY ==
[2023-10-31] VITALS (9 sets, daily range): BP systolic 88–139; BP diastolic 56–77; PULSE 61–77; RESP 16; TEMP 36.1–36.6; O2SAT 97–100; BMI 21.0
--- NOTE | 2023-10-31 08:45 | H&P.OPEN ---
HPI - General General Date of Service: 10/31/23 HPI Narrative ANGELIAC GONZALEZ, is a 63 F who presents for screening colonoscopy. Patient last colonoscopy was in June [address] Martin. Patient did have a history of polyps previously. Patient last colonoscopy was negative. Patient denies any family history of colon cancer. Patient denies any chronic abdominal pain/nausea/vomiting/reflux. Patient has bowel movements about every other day denies any blood PFSH Medical History (Updated 10/25/23 @ 13:47 by Nathalia Dumont) Wears glasses Post-menopausal Non-smoker Hx of colonic polyps History of group B Streptococcus (GBS) infection Osteopenia Bone fracture Osteoporosis Anxiety Home Medications ?Medication ?Instructions ?Recorded ?Last Taken ?Type vitamin d3 with K2 See Rx Instructions PO .COMPLEX 05/05/22 Unknown History PRN SUPPLEMENT alprazolam 0.5 mg tablet 0.5 mg PO DAILY PRN anxiety #10 01/24/23 Unknown Rx tabs multivitamin 1 tab PO DAILY 08/24/23 Unknown History collagen, hydrolyzed 1 1 tab PO QDAY 09/20/23 Unknown History gram-ascorbate calcium 10 mg tablet Allergy/AdvReac Type Severity Reaction Status Date / Time azithromycin (From Zithromax Allergy Other Verified 10/31/23 08:52 Z-Mike) Environmental Allergies: Allergy congestion Verified 10/31/23 08:52 Uncoded Sulfa (Sulfonamide Allergy Other Verified 10/31/23 08:52 Antibiotics) codeine AdvReac Nausea Verified 10/31/23 08:52 Family History Father Heart disease Hypertension passed at 50 year old Mother Cancer Osteoporosis Diabetes Hypertension CVA (cerebral vascular accident) Grandmother Osteoporosis CVA (cerebral vascular accident) Brother H/O heart artery stent Sister Heart disease CVA (cerebral vascular accident) Hypertension Surgical History (Updated 10/25/23 @ 13:47 by Nathalia Dumont) Hx of colonoscopy Tibia and fibula open fracture, right H/O hand surgery Social History number of children: 2 current occupational status: employed current occupation: [employer] Smoking Status: Never smoker alcohol intake: current alcohol intake frequency: holidays/special occasions only substance use type: does not use caffeine: Yes what type of physical activity do you participate in: walking and yoga frequency: 3-4 times per week seatbelt use: always do you feel safe at home: Yes 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 Past Medical/Surgical History Planned Operation Planned Operative Procedure(s): CSCOPE Previous Hospitalizations/Surgeries HX Hospitalizations: No HX of Surgeries: 1975- L 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 R Knee Any Problems With Anesthesia: No You/Your Family Experience Fever (Hyperthermia) With Anes: No Cholinesterase deficiency: No Cardiovascular Hx Hypertension: No Respiratory Hx Sleep Apnea: No Hx Respiratory Tract Infection/Cold (presently): No Do You Snore Loudly (louder than talking or can be heard): No Do You Often Feel Tired/ Fatigued/ Sleepy Dring Daytime?: No Has Anyone Observed You Stop Breathing During Sleep?: No Result (for STOP score): Negative Smoking Status: Never smoker Neurological Does patient have nerve stimulator: No Reproduction : No Allergies azithromycin (From Zithromax Z-Mike) Allergy (Verified 10/31/23 08:52) Other Environmental Allergies: Uncoded Allergy (Verified 10/31/23 08:52) congestion seasonal,dust,dander Sulfa (Sulfonamide Antibiotics) Allergy (Verified 10/31/23 08:52) Other STOMACH PAINS codeine Adverse Reaction (Verified 10/31/23 08:52) Nausea Discharge Is Pt Admitted From a Intermediate, or a [facility]: No After D/C, Where Do you Plan to Go: Return Home Physical Exam Const alert, oriented x3 and no apparent distress HEENT normocephalic and head/scalp atraumatic Resp normal respiratory effort Cardio regular rate GI soft to palpation and non-tender; Negative for non-distended Palpation: Negative for guarding Extremity no clubbing, cyanosis or edema Skin no rashes or lesions noted Neuro CN's II-XII intact bilaterally Psych mental status grossly normal Assessment & Plan Assessment/Plan (1) Encounter for screening for malignant neoplasm of colon: Surgery Risks - Colonoscopy I discussed with the patient the risks of the procedure: Yes Risks Include but are not Limited To: Risks include but are not limited to: Bleeding, perforation requiring further surgery, inability to complete colonoscopy requiring barium enema.
[2023-10-31] MEDS: Lactated Ringers 1,000 ML 15 ML IV (08:59)
--- NOTE | 2023-10-31 09:20 | PRE.ANES_ITS ---
ASA Classification* ASA Classification ASA Classification: 2 Assessment & Plan Anesthesia* Anesthesia Assessment Anesthesia Assessment: Discussed sedation and/or anesthesia options, risks, benefits, and alternatives with patient/parents/legal guardian/POA. Questions invited. The patient/parents/legal guardian/POA seems to understand and agrees to proceed with anesthesia plan. Reviewed the physical assessment, medical history, allergy history and patient home medications list prior to surgery/procedure/anesthetic and documented any changes. Performed airway and anesthesia risk assessments. Anesthesia Type Anesthesia Type: MAC Anesthesia Focused Assessment* Temperature: 97.8 F Pulse Rate: 77 Blood Pressure: 139/77 Respiratory Rate: 16 Pulse Ox: 100 Airway Assessment Mouth opens: >3 cm Mallampati Score: II Focused Labs Anesthesia Preop lab: CBC WBC 4.8 K/mm3 (4.4-11.0) 08/31/23 08:28 RBC 4.64 M/mm3 (4.2-5.4) 08/31/23 08:28 Hgb 13.5 g/dL (12.0-15.0) 08/31/23 08:28 Hct 42.4 % (37-47) 08/31/23 08:28 Plt Count 191 K/mm3 (150-450) 08/31/23 08:28 CHEMISTRY Potassium 3.8 mmol/L (3.5-5.1) 08/31/23 08:28 Sodium 138 mmol/L (136-145) 08/31/23 08:28 BUN 21 mg/dL (7-18) H 08/31/23 08:28 Creatinine 0.77 mg/dL (0.55-1.02) 08/31/23 08:28 Glucose 93 mg/dL (74-106) 08/31/23 08:28 TSH 2.64 uIU/mL (0.358-3.74) 08/31/23 08:28 COAG Pre-Assessment Diagnosis/Proposed Procedure Planned Operative Procedure(s): CSCOPE Anesthesia History Anesthesia History - industrial therapist: Anesthesia History - industrial therapist Hx Hospitalization No 10/31/23 08:47 Any Problems With Anesthesia No 10/31/23 08:47 Cholinesterase deficiency No 10/31/23 08:47 You/Your Family Experience No 10/31/23 08:47 fever (hyperthermia) with Relationship Recent Exposure to Contagious No 10/31/23 08:53 Disease Does patient have nerve No 10/31/23 08:47 stimulator Patient instructed to have device shut off --Does patient have Pacemaker No 10/31/23 08:53 or ICD? When Was Last Pacemaker Check QUESTION #4 FULL TEXT: You/Your Family Experience fever (hyperthermia) with Anesthesia Last Oral Intake Last Oral intake: Last Oral Intake NPO since 08:00 10/31/23 08:53 Meds taken in AM with sips of water? Meds patient instructed to take am of surgery PONV PONV - industrial therapist: PONV - industrial therapist Female Yes 10/25/23 13:43 HX of Motion Sickness No 10/25/23 13:43 HX of N/V After Surgery No 10/25/23 13:43 Non-Smoker Yes 10/25/23 13:43 Duration of Surgery greater No 10/25/23 13:43 than 60 minutes Number of Risk Factors 2 10/25/23 13:43 PONV Score Moderate Risk 10/25/23 13:43 Height & Weight Height & Weight: Anesthesia: Height & Weight Height 5 ft 3 in 10/31/23 08:53 Weight: 54 kg 10/31/23 08:53 Body Mass Index (BMI) 21.0 10/31/23 08:53 Respiratory Assessment Respiratory Assessment - industrial therapist: Respiratory Tract Infection Hx - industrial therapist Hx Respiratory Tract Infection No 10/31/23 08:47 STOP Sleep Apnea STOP Sleep Apnea - industrial therapist: STOP Sleep Apnea - industrial therapist Hx Hypertension No 10/31/23 08:47 Hx Sleep Apnea No 10/31/23 08:47 CPAP BIPAP Do you snore loudly (louder No 10/31/23 08:47 than talking or can be heard Do you often feel tired/ No 10/31/23 08:47 fatigued/ sleepy during daytime? Has anyone observed you stop No 10/31/23 08:47 breathing during sleep? STOP Results Negative 10/31/23 09:18 QUESTION #5 FULL TEXT : Do you snore loudly (louder than talking or can be heard through closed doors)? Tobacco Use History Tobacco Use History - industrial therapist: Tobacco Use History - industrial therapist Tobacco Use Smoking Status Never smoker 10/31/23 08:47 Hx Tobacco Use No 10/25/23 13:43 Years Smoking Packs Smoked per Day Smoking Cessation Date was within the last 15 years Hx Smoking Cessation Date Hx Smoking Cessation Counseling Hematologic Medial History Hematologic Hx - industrial therapist: Hematologic Medical Hx - data integrity consultant Hx of Blood Transfusion No 10/25/23 13:43 Hx of Transfusion in last 3 No 10/25/23 13:43 Months Date of Last Transfusion (if within last 3 months) Ever experience any problems No 10/25/23 13:43 with transfusion(s)? Specify any problems Hx of Preganancy in last 3 N/A 10/25/23 13:43 Months Nurse Filling Out Transfusion NBUCHER 10/25/23 13:43 & Questions: Date: 10/25/23 10/25/23 13:43 Time: 13:44 10/25/23 13:43 Patient unable to answer at this time (ie. confused, unrespo /Reproduction History /Reproductive History - industrial therapist: /Reproductive Hx- industrial therapist Hx Now No 10/31/23 08:47 Gestational Age (in weeks): EDC: Hx Hx Para Hx Section SAB No 10/25/23 13:43 Active Medications Active Medications: Current Medications Generic Name Dose Route Start Last Admin Trade Name Freq PRN Reason Stop Dose Admin Lactated Ringer's 1,000 mls @ 15 mls/hr 10/31/23 08:45 10/31/23 08:59 IV 15 mls/hr .Q48H NANCY Administration PFSH Medical History (Updated 10/25/23 @ 13:47 by Nathalia Dumont) Wears glasses Post-menopausal Non-smoker Hx of colonic polyps History of group B Streptococcus (GBS) infection Osteopenia Bone fracture Osteoporosis Anxiety Home Medications ?Medication ?Instructions ?Recorded ?Last Taken ?Type vitamin d3 with K2 See Rx Instructions PO .COMPLEX 05/05/22 Unknown History PRN SUPPLEMENT alprazolam 0.5 mg tablet 0.5 mg PO DAILY PRN anxiety #10 01/24/23 Unknown Rx tabs multivitamin 1 tab PO DAILY 08/24/23 Unknown History collagen, hydrolyzed 1 1 tab PO QDAY 09/20/23 Unknown History gram-ascorbate calcium 10 mg tablet Allergy/AdvReac Type Severity Reaction Status Date / Time azithromycin (From Zithromax Allergy Other Verified 07/29/24 08:52 Z-Mike) Environmental Allergies: Allergy congestion Verified 10/31/23 08:52 Uncoded Sulfa (Sulfonamide Allergy Other Verified 10/31/23 08:52 Antibiotics) codeine AdvReac Nausea Verified 10/31/23 08:52 Family History Father Heart disease Hypertension passed at 50 year old Mother Cancer Osteoporosis Diabetes Hypertension CVA (cerebral vascular accident) Grandmother Osteoporosis CVA (cerebral vascular accident) Brother H/O heart artery stent Sister Heart disease CVA (cerebral vascular accident) Hypertension Surgical History (Updated 10/25/23 @ 13:47 by Nathalia Dumont) Hx of colonoscopy Tibia and fibula open fracture, right H/O hand surgery Social History number of children: 2 current occupational status: employed current occupation: [employer]ified [employer] Smoking Status: Never smoker alcohol intake: current alcohol intake frequency: holidays/special occasions only substance use type: does not use caffeine: Yes what type of physical activity do you participate in: walking and yoga frequency: 3-4 times per week seatbelt use: always do you feel safe at home: Yes 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
--- NOTE | 2023-10-31 09:55 | OP.CCLET_ITS ---
10/31/2023 Donna Arnold [facility] [address] [place] [address] Re : Colonoscopy procedure for Esthela Pedro Dear Dr. Arnold This procedure was performed on Tuesday, October 31, 2023. My impressions and recommendations are as follows: Impressions : - The entire examined colon is normal on direct and retroflexion views. - No specimens collected. Recommendations : - Discharge patient to home. - Resume previous diet. - Continue present medications. - Repeat colonoscopy in 10 years for screening purposes. My findings are described in the full procedure note, which is enclosed. If I can be of further assistance, please feel free to contact me at Doctor phone number(s): , Work: . Sincerely, MD Tonia Dexter MD 10/31/2023 9:54:58 AM This report has been signed electronically.
--- NOTE | 2023-10-31 09:55 | OP.COLON_ITS ---
Patient Name: Esthela Pedro Procedure Date: 10/31/2023 9:24 AM Date of : 1960 Age: 63 Procedure: Colonoscopy Indications: Screening for colorectal malignant neoplasm Providers: Tonia Hennessy MD Referring MD: Donna Arnold Medicines: Monitored Anesthesia Care Patient Profile: This is a 63 year old female. Last Colonoscopy: 2013. Complications: No immediate complications. Procedure: Pre-Anesthesia Assessment: - Prior to the procedure, a History and Physical was performed, and patient medications and allergies were reviewed. The patient's tolerance of previous anesthesia was also reviewed. The risks and benefits of the procedure and the sedation options and risks were discussed with the patient. All questions were answered, and informed consent was obtained. Prior Anticoagulants: The patient has taken no anticoagulant or antiplatelet agents. ASA Grade Assessment: Per anesthesia. After reviewing the risks and benefits, the patient was deemed in satisfactory condition to undergo the procedure. After I obtained informed consent, the scope was passed under direct vision. Throughout the procedure, the patient's blood pressure, pulse, and oxygen saturations were monitored continuously. The Colonoscope was introduced through the anus and advanced to the cecum, identified by appendiceal orifice and ileocecal valve. The colonoscopy was performed without difficulty. The patient tolerated the procedure well. The quality of the bowel preparation was good. Scope In: 9:33:00 AM Scope Withdrawal Time 0 hours 6 minutes 42 seconds Scope Out: 9:48:34 AM Total Procedure Duration Time 0 hours 15 minutes 34 seconds Findings: The perianal and digital rectal examinations were normal. The entire examined colon appeared normal on direct and retroflexion views. Impression: - The entire examined colon is normal on direct and retroflexion views. - No specimens collected. Recommendation: - Discharge patient to home. - Resume previous diet. - Continue present medications. - Repeat colonoscopy in 10 years for screening purposes. Procedure Code(s): --- Professional --- G0121, PT, Colorectal cancer screening; colonoscopy on individual not meeting criteria for high risk Diagnosis Code(s): --- Professional --- Z12.11, Encounter for screening for malignant neoplasm of colon CPT copyright 2021 [employer] [employer]. All rights reserved. The codes documented in this report are preliminary and upon automatic bandsaw tender review may be revised to meet current compliance requirements. ToniaMD Tonia Ohara MD 10/31/2023 9:54:58 AM This report has been signed electronically. Number of Addenda: 0 Note Initiated On: 10/31/2023 9:24 AM
--- NOTE | 2023-10-31 10:06 | PCM.POST.ANE ---
Anesthesia: Postop Eval I Current Vital Signs Temperature: 97.5 F Pulse Rate: 70 Blood Pressure: 94/56 Respiratory Rate: 16 Pulse Ox: 98 Oxygen Delivery Method: Room Air Assessment Airway patent: Yes Spontaneous unlabored respirations: Yes Mental status: Asleep nausea: No Vomiting: No Anesthesia Complication: No Fluid Hydration Crystalloid volume administer (ml): 600 Total IV fluid infused: 600 Progress Note Anesthesia document: Postop Eval 1 completed: Yes
--- NOTE | 2023-10-31 11:41 | PCM.POSTANE2 ---
Anesthesia Postop Eval I Sum Postop Eval Completion status Anesthesia document: Postop Eval 1 completed: Yes Anesthesia Postop Eval I Summary Anesthesia Postop Eval I Summary: Anesthesia Postop Eval I: Assessment Summary Airway patent Yes 10/31/23 10:08 [email or web address] Spontaneous unlabored Yes 10/31/23 10:08 [email or web address] respirations Mental status Asleep 10/31/23 10:08 [email or web address] nausea No 10/31/23 10:08 [email or web address] Vomiting No 10/31/23 10:08 [email or web address] Anesthesia Postop Eval I: Fluid Summary Crystalloid volume administer 600 10/31/23 10:08 [email or web address] (ml) Colloids volume administered ( ml) Blood Product volume administered (ml) Total IV fluid infused 600 10/31/23 10:08 [email or web address] Anesthesia Postop Eval I: Summary Notes Anesthesia Complication No 10/31/23 10:08 [email or web address] Anesthesia Complication Comment: Post-operative progress note Anesthesia: Postop Eval II Evaluation Mental status: Awake and Calm Pain Level: 0 nausea: No Vomiting: No Complications Anesthesia Complication: No
== END 2023-10-31 10:33 | disposition home or self-care (01) ==
LOC: EN 08:39 → AC 08:40
PROVIDERS: PCP Internal Medicine; Referring Provider Internal Medicine; Visit Provider Surgery
PROC: 0DJD8ZZ Inspection of Lower Intestinal Tract, Via Natural or Artificial Opening Endoscopic (ICD-10-PCS; CPT 45378; principal; 2023-10-31 09:55)
DX: Z12.11 Encounter for screening for malignant neoplasm of colon (principal); F41.9 Anxiety disorder, unspecified; Z86.010 Personal history of colon polyps; Z79.899 Other long term (current) drug therapy
CPT/HCPCS: 45378; J7120; J2405

== ENCOUNTER → 2023-12-19 | Outpatient (CLI) | payer OTHER, SELFPAY ==
--- NOTE | 2023-12-19 08:09 | BI_ITS ---
MAMMOGRAPHY - BILATERAL SCREENING REASON FOR EXAM: Female, 63 years old. Routine annual screening examination. PERTINENT HISTORY: Non-contributory. TECHNIQUE: Digital bilateral breast gilma (3D mammographic acquisition) in the CC and MLO projections. 2-D mediolateral oblique (MLO) and craniocaudad (CC) views of both breasts were obtained. CAD: Full Field Digital Mammography with Computer Added Detection was performed. COMPARISON: Comparison is made with prior study dated September 30, 2022 and September 22, 2021. FINDINGS: Breast Composition: There are scattered areas of fibroglandular density. There are no dominant masses or suspicious calcifications. No other significant abnormalities are identified. There has been no significant change since the prior study. BI/SCRN MAMM (CAD)W/GILMA BILAT IMPRESSION: Stable bilateral screening mammogram. Yearly follow-up mammogram recommended. (A) ASSESSMENT CATEGORY: BIRADS Category 1: Negative. A letter regarding these results will be sent to the patient by the facility within 30 days. Approximately 10% of breast cancers are not detected by mammography. A normal mammogram should not delay biopsy of a clinically suspicious abnormality. [id number] Electronically Signed: Geoff Oreilly MD at 9:30 EDT ,
== END | disposition home or self-care (01) ==
LOC: OPBI 08:09
PROVIDERS: PCP Internal Medicine; Referring Provider Obstetrics & Gynecology; Visit Provider Obstetrics & Gynecology
DX: Z12.31 Encounter for screening mammogram for malignant neoplasm of breast (principal)
CPT/HCPCS: 77063; 77067

== ENCOUNTER → 2024-01-18 | Outpatient (CLI) | payer OTHER, SELFPAY ==
--- NOTE | 2024-01-18 15:57 | BD_ITS ---
STUDY: DUAL ENERGY X-RAY ABSORPTIOMETRY / DXA REASON FOR EXAM: Female, 63 years old. Screening TECHNIQUE: Bone Mineral Density (BMD) measurements of lumbar spine and bilateral hips were obtained. COMPARISON: Comparison is made with prior study January 05, 2022. FINDINGS: Lumbar Spine (L1-L4): g/cm2 (0.846) / T-score (-1.6) / Z-score (0.0) Findings are suggestive of osteopenia with a moderate fracture risk. Left Femur Total: g/cm2 (0.774) / T-score (-1.4) / Z-score (-0.3) Left Femoral Neck: g/cm2 (0.617) / T-score (-2.1) / Z-score (-0.7) Right Femur Total: g/cm2 (0.757) / T-score (-1.5) / Z-score (-0.5) Right Femoral Neck: g/cm2 (0.577) / T-score (-2.4) / Z-score (-1.1) The T-Scores on the most recent prior examination were: Lumbar Spine (L1-L4): There has been improvement of bone density since the previous examination. Left Femur Total: which represents a worsening of 1.9%. Right Femur Total: which represents a worsening of 1%. BD/Dexa Bone Density Study IMPRESSION: The patient is considered osteopenic as outlined below according to World Erwin Organization (WHO) criteria with a high fracture risk. There has been worsening of bone density since the previous examination. Reference Information: The T-score is the number of standard deviations above or below the standard which is normal for young adults at their peak bone mineral density. The World Health Organization (WHO) interprets the T-scores as follows: Above -1 Normal bone density Between -1 and -2.5 Osteopenia Equal to / or below -2.5 Osteoporosis As a practical clinical guideline, osteopenia may be graded as follows: Mild -1 through -1.5 Moderate -1.6 through -2.0 Severe -2.1 through -2.4 The Z-score is the number of standard deviations above or below age-matched controls. A Z-score of less than -1.5 would be considered abnormal. References: 1. NIH Osteoporosis and Related Bone Diseases www osteo.org 2. International Society for Clinical Densitometry www iscd.org 3. National Osteoporosis Foundation www nof.org Electronically Signed: Geoff Oreilly MD at 13:40 EDT ,
== END | disposition home or self-care (01) ==
LOC: OPBD 15:53
PROVIDERS: PCP Internal Medicine; Referring Provider Obstetrics & Gynecology; Visit Provider Obstetrics & Gynecology
DX: M85.80 Other specified disorders of bone density and structure, unspecified site (principal); Z13.820 Encounter for screening for osteoporosis
CPT/HCPCS: 77080

== ENCOUNTER → 2024-06-25 | Outpatient (CLI) | payer OTHER, SELFPAY ==
[2024-06-25 13:16] LABS: Bacteria 0 SEEN /hpf (None Seen); Mucous, Urine 0 SEEN /hpf (<or=2+)
[2024-06-25 13:27] LABS: Color, Urine Yellow (Yellow); Glucose, Dipstick Normal (Normal); Ketone-Dipstick Negative (Negative); Leukocyte Esterase-Dipstick 100 /ul (Negative); Nitrite-Dipstick Negative (Negative); Occult Blood-Urine 10 /ul (Negative); Protein-Dipstick 15 mg/dl (Negative); Specific Gravity, Urine 1.015 (1.002-1.030); Urine Bilirubin Dipstick Negative (Negative); Urine Clarity Clear (Clear); Urine Urobilinogen Normal (Normal)
[2024-06-25 13:32] LABS: Squamous Epithelial Cells - UA 0-5 SEEN /hpf (5-10); White Blood Cells 0-5 SEEN /hpf (0-5)
[2024-06-25 15:17] LABS: Red Blood Cells-Urine 0 SEEN /hpf (0-5)
== END | disposition home or self-care (01) ==
PROVIDERS: PCP Internal Medicine; Referring Provider Internal Medicine; Visit Provider Internal Medicine
DX: N39.0 Urinary tract infection, site not specified (principal)
CPT/HCPCS: 81001; 87077; 87086; 87088; 87186

== ENCOUNTER → 2024-07-12 | Outpatient (CLI) | payer OTHER, SELFPAY | END | disposition home or self-care (01) | LOC: LABSPEC 11:59 | PROVIDERS: PCP Internal Medicine; Referring Provider Nurse Practitioner Women's Health; Visit Provider Nurse Practitioner Women's Health | DX: N94.89 Other specified conditions associated with female genital organs and menstrual cycle (principal) | CPT/HCPCS: 87070; 87205 ==

== ENCOUNTER 2024-12-01 13:12 | Emergency (ER) | payer OTHER, SELFPAY ==
[2024-12-01] VITALS (8 sets, daily range): BP systolic 125–153; BP diastolic 73–111; PULSE 76–95; RESP 12–18; TEMP 36.3–36.8; O2SAT 97–100; BMI 21.9
--- NOTE | 2024-12-01 14:14 | EX.ED.UPPERE ---
HPI History of Present Illness Chief Complaint: Upper Extremity Injury Narrative Narrative: 64-year-old female [id number] presents with injury to her left wrist that she sustained approximately an hour ago. She states she was walking in her kitchen and slipped on the rug. She fell more to her left side and onto her left wrist. She has had pain, swelling, and deformity noted to the left wrist. Pain is worse with movement. She denies other injuries. No hitting of her head, no loss of consciousness, no neck pain. Denies other significant past medical history. PFSH PFSH Medical History UTI (urinary tract infection) Wears glasses Post-menopausal Non-smoker Hx of colonic polyps History of group B Streptococcus (GBS) infection Osteopenia Bone fracture Osteoporosis Anxiety Home Medications ?Medication ?Instructions ?Recorded ?Last Taken ?Type alprazolam 0.5 mg tablet 0.5 mg PO DAILY PRN anxiety #10 04/27/24 Unknown Rx tabs estradiol 0.01% (0.1 mg/gram) See Rx Instructions vaginal 07/12/24 Unknown Rx vaginal cream .COMPLEX #42.5 grams Allergy/AdvReac Type Severity Reaction Status Date / Time azithromycin (From Zithromax Allergy Other Verified 12/01/24 13:14 Z-Mike) Environmental Allergies: Allergy congestion Verified 12/01/24 13:14 Uncoded Sulfa (Sulfonamide Allergy Other Verified 12/01/24 13:14 Antibiotics) codeine AdvReac Nausea Verified 12/01/24 13:14 Family History Father Heart disease Hypertension passed at 50 year old Mother Cancer Osteoporosis Diabetes Hypertension CVA (cerebral vascular accident) Grandmother Osteoporosis CVA (cerebral vascular accident) Brother H/O heart artery stent Sister Heart disease CVA (cerebral vascular accident) Hypertension Surgical History Hx of colonoscopy Tibia and fibula open fracture, right H/O hand surgery Social History number of children: 2 current occupational status: retired current occupation: retired Smoking Status: Never smoker alcohol intake: current alcohol intake frequency: holidays/special occasions only substance use type: does not use caffeine: Yes what type of physical activity do you participate in: walking and yoga frequency: 3-4 times per week seatbelt use: always do you feel safe at home: Yes 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 ROS ROS ED ROS Narrative Review of systems positive for left wrist injury, deformity, pain and swelling. Left hand dominant. No hitting of head, no neck pain, no loss of consciousness, denies other injury. EXAM Physical Exam Narrative Exam Narrative: GCS 15. ABCs intact. Cardiovascular examination reveals a regular rate and rhythm. Lungs are clear to auscultation bilaterally. Abdomen is soft and nontender with positive bowel sounds. Neurological examination nonfocal, nonlateralizing. Mild deformity noted to the left wrist. She appears neurovascularly intact distally with good capillary refill, able to oppose thumb. Palpable radial pulse. Uninjured in the mid forearm, elbow, and more proximally. Const Vital Signs: 12/01/24 13:13 Temperature 97.4 F L Temperature Source Temporal Pulse Rate 94 Respiratory Rate 16 Blood Pressure 150/89 H Blood Pressure Mean 109 Pulse Ox 100 Oxygen Delivery Method Room Air MDM MDM MDM Narrative Medical decision making narrative: Differential diagnosis includes but not limited to distal radius fracture versus distal ulnar fracture versus both forearm bone fracture versus wrist sprain. IV was started and patient administered morphine and ondansetron. X-rays were obtained of the left wrist and 3 views and interpreted by myself independently. IV was started and analgesics administered given the probable need for procedural sedation for closed reduction of a left wrist fracture. I had already discussed with the patient possible hematoma block but she is declining. On my independent interpretation of the x-rays of the left wrist, there is a comminuted fracture of the distal radius that is impacted. Small avulsion of the distal ulna. I reviewed the radiology report which confirms my independent interpretation, and they comment on possible damage to the scapholunate ligament. See procedural note for detail. I did have the assistance of Dr. Quinten Moscoso who performed splinting. X-rays were obtained postreduction and interpreted by myself independently. There is satisfactory closed reduction. I reviewed the radiology report which confirms my independent interpretation. I had a lengthy discussion with the patient and her regarding narcotic pain medication for analgesia. She states that she had a fractured leg previously and did not like the way Percocet or [place] had made her feel and she only took extra strength Tylenol. She does not want a prescription for narcotic pain medication. She was instructed that she should take a maximum of 3000 mg of Tylenol in a 24-hour period. She was referred to Dr. Joyner with orthopedics who is on-call. I feel she can be discharged for follow-up. She was given a sling for comfort but told to exercise her left shoulder multiple times a day to prevent adhesive capsulitis. Return instructions to the emergency department were reviewed. Disposition is discharged home in stable condition. History & Record Review Discussion w/independent historian: Patient and Family () Procedures Upper Extremity Splints Upper Extremity Splint: Orthoglass and - (AP splint using Ortho-Glass, performed by Dr Mignon Moscoso) Splint Fabrication: Fabricated Location: Left Procedural Sedation Closed reduction left wrist: Consent Signed: Yes Any Problems With Anesthesia: No You/Your family experience fever (hyperthermia) w/anesthesia: Unknown Sedation medication: Propofol (80 mg) Dose: 80 Route: IV Total Moderate Sedation Units: 6 Maliampati Score: Class III ASA Classification: I Comment:: Patient tolerated procedure well. Discharge Plan Triage Chief Complaint: Upper Extremity Injury ED Provider: Angel Hernandez Dx/Rx/DC Orders Clinical Impression: Fall, Distal radius fracture, left Instructions: Wrist Fracture ED, ED Fracture, Wrist, General Prescriptions: No Action estradiol 0.01 % (0.1 mg/gram) cream See Rx Instructions vaginal .COMPLEX Qty: 42.5 2RF Rx Instructions: small amount(.25mg) as directed vaginal every other day X 4 weeks then twice a week; alprazolam 0.5 mg tablet 0.5 mg PO DAILY PRN (Reason: anxiety) Qty: 10 0RF Rx Instructions: Take 1/2 to 1 tablet prior to flying as needed for anxiety. Primary Care Provider: Donna Arnold Referrals: Ivan Escamilla DO [Med Staff - Active Staff] - 1 Week Donna Arnold MD [Primary Care Provider] - Activity Restrictions/Additional Instructions: Ice and elevate left wrist when possible. It is important for you to follow-up with orthopedics within the next week. Tylenol as directed for pain. You can take a maximum of 3000 mg in a 24-hour period. Exercise your left shoulder and do not leave it in a sling, only use that for support occasionally. Do not get splint wet. Return with increasing pain, new or worsening symptoms. Print Language: [place] Disposition Disposition: Home, Self Care
--- OUTSIDE RECORDS SUMMARY | 2024-12-01 14:29 | XMS RPT_ITS | CCD ---
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 Frances Tineo Attending Provider [phone] Dr. Oleksandr Almanza Primary Care Provider [phone] Dr. Oleksandr Almanza Referring Provider Clayton WARD, Dr. Thompson Primary Care Provider [phone] Clayton WARD, Dr. Thompson Attending Provider Clayton WARD, Dr. Thompson Referring Provider Francois MARKETING SYSTEMS ANALYST-C, Catalina Attending Provider Comanche MARKETING SYSTEMS ANALYST-C, Catalina Referring Provider [phone] Frances Tineo Attending Unavailable Clayton, Donna Primary Care Unavailable Frances Tineo Referring Unavailable Frances Tineo Attending Unavailable SimónanthonyFrances Referring Unavailable Clayton, Donna Primary Care Unavailable Clayton, Donna Primary Care Unavailable Comanche MARKETING SYSTEMS ANALYST, Catalina Attending Unavailable Francois MARKETING SYSTEMS ANALYST, Catalina Referring Unavailable Frances Tineo Attending Unavailable Marcanthony Frances Referring Unavailable Clayton, Donna Primary Care Unavailable Clayton, Donna Primary Care Unavailable MarcanthonyFrances Attending Unavailable Clayton, Donna Referring Unavailable Clayton, Donna Referring Unavailable Clayton, Donna Primary Care Unavailable Comanche MARKETING SYSTEMS ANALYST, Catalina Attending Unavailable Clayton, Donna Attending Unavailable Lcayton, Donna Referring Unavailable Clayton, Donna Primary Care Unavailable Allergies Allergy Classification Reported Allergen(s) Allergy Type Date of Onset Reaction(s) Facility (2 sources) sulfamethoxazole / trimethoprim drug allergy 12-15-[address] [facility] (8 sources) Azithromycin Drug Allergy 10-02-19 21 Other [facility] (8 sources) Codeine Drug Allergy 10-02-19 21 Nausea [facility] (9 sources) Sulfonamides (Antibiotic); Translations: [Sulfa (Sulfonamide Antibiotics)] Allergy to substance 10-02-19 21 Other [facility] Comment on above: STOMACH PAINS (3 sources) Environmental Allergies: Uncoded; Translations: [Environmental Allergies: Uncoded] Allergy to substance 12-19-19 24 congestion [facility] Comment on above: seasonal,dust,dander (1 source) Azithromycin Drug Allergy 07-13-19 [facility] Repository (1 source) Codeine Drug Allergy 07-13-19 [facility] Repository Medications Current Medications Medication Drug Class(es) Dates Sig (Normalized) Sig (Original) estradiol 0.1 mg/ml vaginal cream (17 sources) Estrogen Start: 07-12-2024 Estradiol 0.01 % (0.1 mg/gram) cream Active 0 VAGINAL .COMPLEX 42.5 July 12, 2024 12:00am small amount(.25mg) as directed vaginal every other day X 4 weeks then twice a week; Start: 10-01-2020 End: 05-13-2022 Estradiol 0.01 % (0.1 mg/gra m) cream Discontinued 0 VAGINAL .COMPLEX 42.5 October 01, 2020 12:00am May 13, 2022 11:06am small amount as directed vaginal every other day X 4 weeks then twice a week; Start: 10-01-2020 Estradiol Acti ve 0 VAGINAL .COMPLEX 42.5 October 01, 2020 12:00am small amount as directed vaginal every other day X 4 weeks then twice a week; Start: 04-26-2018 End: 09-11-2019 Estradiol (Estrace) 0.01 % ( 0.1 mg/gram) cream Discontinued 0 VAGINAL .COMPLEX 42.5 April 26, 2018 1:00am September 11, 2019 11:27am pea sized amount VAGINAL every other day X 4 weeks then twice a week; Start: 04-26-2018 End: 09-11-2019 Estradiol (Estrace) 0.01 % ( 0.1 mg/gram) cream Discontinued 0 VAGINAL .COMPLEX 42.5 April 26, 2018 1:00am September 11, 2019 11:27am pea sized amount VAGINAL every other day X 4 weeks then twice a week; Completed/Discontinued Medications Medication Drug Class(es) Dates Sig (Normalized) Sig (Original) ALPRAZolam 0.5 mg oral tablet (6 sources) Benzodiazepine Start: 01-24-2023 End: 04-27-2024 take 0.5-1 tablets by mouth once daily as needed for anxiety Alprazolam 0.5 mg tablet Discontinued 0.5 mg PO DAILY as needed for anxiety April 27, 2024 8:35am April 27, 2024 2:10pm Take 1/2 to 1 tablet prior to flying as needed for anxiety. AMOXICILLIN-POT CLAVULANATE (2 sources) Penicillin-class Antibacterial Start: 12-14-2016 AUGMENTIN 875-125 MG TABS AMOXICILLIN-POT CLAVULANATE [id number] Frances Tineo MD Start: 12-14-2016 AUGMENTIN 875- 125 MG TABS AMOXICILLIN-POT CLAVULANATE [id number] Frances Tineo MD calcium carbonate 500 mg chewing gum (2 sources) Start: 12-14-2016 CALCIUM 500 MG CHEW CALCIUM CARBONATE [id number] Frances Tineo MD Start: 12-14-2016 CALCIUM 500 MG CHEW CALCIUM CARBONATE [id number] Frances Tineo MD ciprofloxacin 250 mg oral tablet (2 sources) Quinolone Antimicrobial Start: 06-26-2024 End: 07-01-2024 take 1 tablet by mouth twice daily Ciprofloxacin Hcl 250 mg tablet Discontinued 250 mg PO TWICE A DAY 10 June 26, 2024 12:00am June 30, 2024 12:00am July 01, 2024 6:34am Collagen,Hydrolyz-A scorbate Ca 1 gram- 10 mg tablet (2 sources) Start: 09-20-2023 End: 07-12-2024 Collagen,Hydrolyz-A scorbate Ca 1 gram- 10 mg tablet Discontinued 1 {tbl} PO daily September 20, 2023 12:00am July 12, 2024 8:44am Start: 09-20-2023 Collagen,[place] pallavi-Ascorbate Ca 1 gram- 10 mg tablet Active 1 {tbl} PO daily September 20, 2023 12:00am mecobalamin 5 mg disintegrating oral tablet (2 sources) Start: 12-19-2023 End: 07-12-2024 Mecobalamin (Vitamin B12) 5, 000 mcg tablet,disintegrating Discontinued ug PO December 19, 2023 12:00am July 12, 2024 8:44am Multivitamin tablet (2 sources) Start: 08-24-2023 End: 07-12-2024 Multivitamin tablet Disconti nued 1 {tbl} PO DAILY August 24, 2023 12:00am July 12, 2024 8:44am Start: 08-24-2023 Multivitamin t ablet Active 1 {tbl} PO DAILY August 24, 2023 12:00am phenylephrine hydrochloride 10 mg oral tablet (10 sources) alpha-1 Adrenergic Agonist Start: 03-02-2018 End: 08-24-2023 take 1 tablet by mouth once as needed Phenylephrine Hcl (Sudafed Pe) 10 mg tablet Discontinued 10 mg PO ONCE as needed May 05, 2022 12:18pm August 24, 2023 9:03am probiotic gummy (2 sources) Start: 05-13-2022 End: 09-20-2023 probiotic gummy Discontinued PO May 13, 2022 1:00am September 20, 2023 11:46am pseudoePHEDrine hydrochloride 60 mg oral tablet (2 sources) alpha-Adrenergic Agonist Start: 12-14-2016 PSEUDOEPHEDRINE HCL 60 MG TABS PSEUDOEPHEDRINE HCL [id number] Frances Tineo MD vitamin d3 with K2 (2 sources) Start: 05-05-2022 End: 07-12-2024 vitamin d3 with K2 Discontinued 0 PO .COMPLEX as needed for SUPPLEMENT May 05, 2022 1:00am July 12, 2024 8:44am orally 3-4 times weekly; PRN; Start: 05-05-2022 vitamin d3 wit h K2 Active 0 PO .COMPLEX as needed for SUPPLEMENT May 05, 2022 1:00am orally 3-4 times weekly; PRN; Problems Active Problems Problem Classification Problem Date Documented Da te Episodic/Chronic Administrative/social admission (1 source) First encounter by subject; Translations: [Persons encountering health services in other specified circumstances] 05-13-2022 Episodic Anxiety disorders (2 sources) Anxiety; 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-13-2022 Chronic Menopausal disorders (15 sources) Atrophic vaginitis; Translations: [Postmenopausal atrophic vaginitis] Onset: 12-19-2023 Chronic Comment on above: vitamin E oil estradiol cream Osteoporosis (2 sources) Osteoporosis; Translations: [Age-related osteoporosis without current pathological fracture] Onset: 12-14-2016 12-14-2016 Chronic Other bone disease and musculoskeletal deformities (2 sources) Osteopenia; Translations: [Other specified disorders of bone density and structure, unspecified site] 12-19-2023 Episodic Comment on above: didn't tolerate fosa max Other female genital disorders (12 sources) Dyspareunia; Translations: [Dyspareunia] Chronic Comment on above: OTC treatment declin ed vaginal estrogen at this time. Other screening for suspected conditions (not mental disorders or infectious disease) (4 sources) Patient encounter status; Translations: [Encounter for screening for malignant neoplasm of colon] Onset: 01-10-2024 08-24-2023 Episodic Unclassified (1 source) Screening mammography ; Translations: [Encounter for screening mammogram for malignant neoplasm of breast] Onset: 12-14-2016 12-14-2016 Unclassified (1 source) Gynecologic examination ; Translations: [Encounter for gynecological examination (general) (routine) without abnormal findings] Onset: 12-14-2016 12-14-2016 Past or Other Problems Problem Classification Problem Date Documented Da te Episodic/Chronic Other bone disease and musculoskeletal deformities (1 source) Other specified disorders of bone density and structure, unspecified site; Translations: [Other specified disorders of bone density and structure, unspecified site] Onset: 02-09-2024 Episodic Other female genital disorders (1 source) Other specified conditions associated with female genital organs and menstrual cycle; Translations: [Other specified conditions associated with female genital organs and menstrual cycle] Onset: 07-16-2024 Episodic Urinary tract infections (3 sources) Urinary tract infectious disease; Translations: [Urinary tract infection, site not specified] Onset: 06-30-2024 06-25-2024 Episodic Results Test Name Value Interpretation Reference Range Facility Genital Culture Comprehensiv isis 07-13-2024 VAC Reason for Exam: vaginal burning Normal vaginal jaclyn isolated. No yeast, Gardnerella, Neisseria or beta-hemolytic Streptococcus isolated. Normal [facility] Comment on above: Performed By: #### M 100.3200, M100.1999 #### [facility] [address] [place], [address] Gram Stainon 07-13-2024 GS Reason for Exam: vaginal burning Gram Stain Rare Gram positive cocci No Gram negative diplococci No Epithelial cells Normal [facility] Comment on above: Performed By: #### M 100.3200, M100.1999 #### [facility] [address] [place], [address] Genital cultureOrdered By: Adis Parrish on 07-12-2024 Genital Culture Neisseria or beta-hemolytic Streptococcus isolated. [facility] Gram stainOrdered By: Catalina Parrish on 07-12-2024 Microscopic observation Gram stain Nom (Unsp spec) [facility] Carton Forming Machine Tender Office Visit Reporton 07-12-2024 Carton Forming Machine Tender Office Visit Report [facility] [address], [address] [place] [address] OFFICE VISIT Date of Service: 07/12/24 MR#: [id number] Acct: [id number] Name: ANGELICA GONZALEZ Rep #: [id number] : 1960 Provider: LUKASZ woodall Age/Sex: 64/F [place] [facility] [place] Signed Intake Vital Signs 12/19/23 15:28 07/12/24 08:41 Height 5 ft 3 in 5 ft 3 in Weight: 121 lb 126 lb BMI 21.4 22.3 BP 122/78 H 110/78 Intake Visit Reasons: labial burning Bending Roll Hand Required: No Is patient in pain?: No Allergies azithromycin (From Zithromax Z-Mike) Allergy (Verified 07/12/24 08:44) Other Environmental Allergies: Uncoded Allergy (Verified 07/12/24 08:44) congestion Sulfa (Sulfonamide Antibiotics) Allergy (Verified 07/12/24 08:44) Other codeine Adverse Reaction (Verified 07/12/24 08:44) Nausea Medications ???Medication ???Instructions ???Recorded ???Confirmed ???Type alprazolam 0.5 mg tablet 0.5 mg PO DAILY PRN anxiety #10 07/12/24 Rx tabs estradiol 0.01% (0.1 mg/gram) See Rx Instructions vaginal 07/12/24 Rx vaginal cream .COMPLEX #42.5 grams Is last menstrual period known: No Post menopausal: Yes Patient : No : No PFSH Medical History (Updated 07/12/24 @ 09:23 by Catalina Parrish MARKETING SYSTEMS ANALYST, MARKETING SYSTEMS ANALYST-C) UTI (urinary tract infection) Wears glasses Post-menopausal Non-smoker Hx of colonic polyps History of group B Streptococcus (GBS) infection Osteopenia Bone fracture Osteoporosis Anxiety Surgical History Hx of colonoscopy Tibia and fibula open fracture, right H/O hand surgery Family History Father Heart disease Hypertension passed at 50 year old Mother Cancer Osteoporosis Diabetes Hypertension CVA (cerebral vascular accident) Grandmother Osteoporosis CVA (cerebral vascular accident) Brother H/O heart artery stent Sister Heart disease CVA (cerebral vascular accident) Hypertension Social History number of children: 2 current occupational status: retired current occupation: retired Smoking Status: Never smoker alcohol intake: current alcohol intake frequency: holidays/special occasions only substance use type: does not use caffeine: Yes what type of physical activity do you participate in: walking and yoga frequency: 3-4 times per week seatbelt use: always do you feel safe at home: Yes 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 Recent UTI. Denies urinary symptoms. History 2 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 Date Name GA/Weeks Outcome Route Bth Weight Gen Labor Lgth Anesthesia Del Locatn Provider FOB Unknown Sugar 1989 Unknown Rosalva 1992 ROS Const Constitutional: Reports system reviewed and no additional complaints, except as documented Eyes Eyes: Reports system reviewed and no additional complaints, except as documented GI GI: Denies abdominal pain or change in bowel habits : Reports as per HPI Exam Const General: cooperative and no acute distress Orientation: oriented x3 General: bladder normal to palpation External Female Exam: normal external appearance Urethra: other (slightly dilated) Speculum Exam - Vagina: normal vaginal discharge, vagina atrophic, no lesions and nontender Speculum Exam - Cervix: normal appearance of the cervix Bimanual Exam- Vagina Uterus: normal bimanual exam, uterine size normal, bladder normal to palpation, uterine shape normal, uterine mobility normal and non-tender Bimanual Exam- Adnexa, other: normal adnexae, no masses and non-tender Coding Level of Care Code Off vis,est,level 3 Diagnoses Atrophic vaginitis N95.2 Assessment and Plan Assessment and Plan (1) Atrophic vaginitis: Status: Acute Comment: estradiol cream Orders: Orders Culture, Genital Comprehensive Today N94.89 - Other specified conditions associated with female genital organs and menstrual cycle Medications: New estradiol 0.01%(0.1mg/gram) small amount(.25mg) as directed vaginal every other day X 4 weeks then twice a week; 42.5 grams 2RF Plan Comp vaginal culture-call positive Rx estradiol cream after discussing use, benefits, risks Coconut oil prn Kegels RTO 4 wk 07/12/24 0924 Date Catalina Parrish NP MARKETING SYSTEMS ANALYST-C (more content not included)... Normal [facility] Urine Cultureon 06-29-2024 [facility] Urine Culture Urine Culture Streptococcus sanguinis Rickreall Count 25,000-50,000 Streptococcus sanguinis: REACTION Ampicillin Islt GENNA <=0.25 Penicillin G Islt GENNA 0.12 S Cefotaxime Islt GENNA <=0.12 S cefTRIAXone Islt GENNA <=0.12 S Linezolid Islt GENNA <=2 S Vancomycin Islt GENNA 0.5 S Normal [facility] Comment on above: Performed By: #### M 100.2200, L400.0001 #### [facility] [address] [place], [place], [id number] Bilirubin Test strip Ql (U)O rdered By: Donna Arnold on 06-25-2024 Bilirubin Ql (U) Negative Negative [facility] Epithelial cells.squamous LM Ql (Urine sed)Ordered By: Donna Arnold on 06-25-2024 Epithelial cells.squamous LM.HPF (Urine sed) [#/Area] 0 /[HPF] 5-10 [facility] Glucose Ql (U)Ordered By: María Arnold on 06-25-2024 Urine Glucose (UA) Normal mg/dl Normal [facility] Ketones Test strip Ql (U)Ord ered By: Donna Arnold on 06-25-2024 Ketones Ql (U) Negative Negative [facility] Microscopic analysis of urin e for red blood cells (RBC)Ordered By: Donna Arnold on 06-25-2024 Urine RBC 0 SEEN /hpf 0-5 [facility] Mucus LM Ql (Urine sed)Order ed By: Donna Arnold on 06-25-2024 Mucus Ql (Urine sed) 0 SEEN /hpf [facility] Nitrite Test strip Ql (U)Ord ered By: Donna Arnold on 06-25-2024 Nitrite Ql (U) Negative Negative [facility] Protein Test strip Ql (U)Ord ered By: Donna Arnold on 06-25-2024 Protein Ql (U) 15 mg/dl High Negative [facility] Urinalysis, Completeon 06-25 RBC 0 SEEN Normal 0-5 [facility] Comment on above: Order Comment: COLLE CTOR TO SPECIFY Performed By: #### M 100.2200, L400.0001 #### [facility] [address] [place], [address] Urine blood detectionOrdered By: Donna Arnold on 06-25-2024 Urine Occult Blood 10 /ul High Negative [facility] Urine clarityOrdered By: Isaura Arnold on 06-25-2024 Clarity (U) Clear Clear [facility] Urine color determinationOrd ered By: Donna Arnold on 06-25-2024 Color (U) Yellow Yellow [facility] Urine cultureOrdered By: Isaura Arnold on 06-25-2024 Bacteria identified Cx Nom (U) Streptococcus sanguinis Abnormal [facility] Urine leukocyte esterase det ection by dipstickOrdered By: Donna Arnold on 06-25-2024 Leukocyte esterase Test strip Ql (U) 100 /ul High Negative [facility] Urine pHOrdered By: Donna momin on 06-25-2024 pH (U) 6.0 [pH] 5.0 - 8.0 [facility] Urine sediment bacteria coun t by microscopy (number/high power field)Ordered By: Donna Arnold on 06-25-2024 Bacteria LM.HPF (Urine sed) [#/Area] 0 /[HPF] None Seen [facility] Urine specific gravity measu rementOrdered By: Donna Arnold on 06-25-2024 Specific gravity (U) [Rel density] 1.015 1.002-1.030 [facility] Urobilinogen Ql (U)Ordered B y: Donna Arnold on 06-25-2024 Urine Urobilinogen Normal mg/dl Normal [facility] White blood cell countOrdere d By: Donna Arnold on 06-25-2024 Urine WBC 0-5 SEEN /hpf 0-5 [facility] Dexa Bone Density Studyon Dexa Bone Density Study [facility] Imaging Services [address] [place] [id number] Dexa Bone Density Study MR#: [id number] Acct: [id number] Name: ANGELICA GONZALEZ Rep #: [id number] : 1960 F 63 From: Geoff nunez MD PCP: Dr. Donna Arnold MD Status: REG CLI Study: Dexa Bone Density Study Date of Exam: 01/18/24 Exam# [id number] Ordering Dr: Frances Tineo [id number] STUDY: DUAL ENERGY X-RAY ABSORPTIOMETRY / DXA REASON FOR EXAM: Female, 63 years old. Screening TECHNIQUE: Bone Mineral Density (BMD) measurements of lumbar spine and bilateral hips were obtained. COMPARISON: Comparison is made with prior study January 05, 2022. FINDINGS: Lumbar Spine (L1-L4): g/cm2 (0.846) / T-score (-1.6) / Z-score (0.0) Findings are suggestive of osteopenia with a moderate fracture risk. Left Femur Total: g/cm2 (0.774) / T-score (-1.4) / Z-score (-0.3) Left Femoral Neck: g/cm2 (0.617) / T-score (-2.1) / Z-score (-0.7) Right Femur Total: g/cm2 (0.757) / T-score (-1.5) / Z-score (-0.5) Right Femoral Neck: g/cm2 (0.577) / T-score (-2.4) / Z-score (-1.1) The T-Scores on the most recent prior examination were: Lumbar Spine (L1-L4): There has been improvement of bone density since the previous examination. Left Femur Total: which represents a worsening of 1.9%. Right Femur Total: which represents a worsening of 1%. BD/Dexa Bone Density Study IMPRESSION: The patient is considered osteopenic as outlined below according to World Erwin Organization (WHO) criteria with a high fracture risk. There has been worsening of bone density since the previous examination. Reference Information: The T-score is the number of standard deviations above or below the standard which is normal for young adults at their peak bone mineral density. The World Health Organization (WHO) interprets the T-scores as follows: Above -1 Normal bone density Between -1 and -2.5 Osteopenia Equal to / or below -2.5 Osteoporosis As a practical clinical guideline, osteopenia may be graded as follows: Mild -1 through -1.5 Moderate -1.6 through -2.0 Severe -2.1 through -2.4 The Z-score is the number of standard deviations above or below age-matched controls. A Z-score of less than -1.5 would be considered abnormal. References: 1. NIH Osteoporosis and Related Bone Diseases www osteo.org 2. International Society for Clinical Densitometry www iscd.org 3. National Osteoporosis Foundation www nof.org Electronically Signed: Geoff Oreilly MD at 13:40 EDT Reading Location ID and State: [facility] / [place] , Service support , CC: Dr. Donna Arnold MD; Dr. Frances Tineo MD Air Brake Rigger: Signed Normal [facility] Carton Forming Machine Tender Office Visit Reporton 12-19-2023 Carton Forming Machine Tender Office Visit Report [facility] [address], [address] [place] [address] OFFICE VISIT Date of Service: 12/19/23 MR#: [id number] Acct: [id number] Name: ANGELICA GONZALEZ Rep #: [id number] : 1960 Provider: Dr. 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 Hand Required: No Is patient in pain?: No Feel stressed/tense/ner vous/anxious/diffi culty sleeping: not at all Allergies azithromycin (From Zithromax Z-Mike) Allergy (Verified 12/19/23 15:31) Other Environmental Allergies: Uncoded Allergy (Verified 12/19/23 15:31) congestion Sulfa (Sulfonamide Antibiotics) Allergy (Verified 12/19/23 15:31) Other codeine Adverse Reaction (Verified 12/19/23 15:31) Nausea Medications ???Medication ???Instructions ???Recorded ???Confirmed ???Type vitamin d3 with K2 See Rx Instructions PO .COMPLEX 05/05/22 12/19/23 History PRN SUPPLEMENT alprazolam 0.5 mg tablet 0.5 mg PO DAILY PRN anxiety #10 01/24/23 12/19/23 Rx tabs multivitamin 1 tab PO DAILY 08/24/23 12/19/23 History collagen, hydrolyzed 1 1 tab PO QDAY 09/20/23 12/19/23 History gram-ascorbate calcium 10 mg tablet mecobalamin (vitamin B12) 5,000 mcg PO 12/19/23 12/19/23 History mcg disintegrating tablet Is last menstrual period known: No Post menopausal: Yes Patient : No : No PFSH Medical History (Updated 12/19/23 @ 16:[address] Frances Tineo MD) Wears glasses Post-menopausal Non-smoker Hx of colonic polyps History of group B Streptococcus (GBS) infection Osteopenia Bone fracture Osteoporosis Anxiety Surgical History (Updated 10/25/23 @ 13:47 by Nathalia Dumont) Hx of colonoscopy Tibia and fibula open fracture, right H/O hand surgery Family History Father Heart disease Hypertension passed at 50 year old Mother Cancer Osteoporosis Diabetes Hypertension CVA (cerebral vascular accident) Grandmother Osteoporosis CVA (cerebral vascular accident) Brother H/O heart artery stent Sister Heart disease CVA (cerebral vascular accident) Hypertension Social History (Updated 12/19/23 @ 15:34 by Catalina Kaiser) number of children: 2 current occupational status: retired current occupation: retired Smoking Status: Never smoker alcohol intake: current alcohol intake frequency: holidays/special occasions only substance use type: does not use caffeine: Yes what type of physical activity do you participate in: walking and yoga frequency: 3-4 times per week seatbelt use: always do you feel safe at home: Yes 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 Date Name GA/Weeks Outcome Route Bth Weight Infant Gen Labor Lgth Anesthesia Del Locatn Provider FOB Unknown Sugar 1989 Unknown Rosalva 1991 HPI Encounter for routine gynecological examination Details: ANGELCIA GONZALEZ is a 63 year old who presents for annual exam. discussed repeating dexa Last PAP: 10/01/2020 History of abnormal PAP: no severe Last mammogram: today History of abnormal mammogram: Colon cancer screening: colonoscopy in October - Other preventative health care screenings: PCP Dr. Arnold - PCP does yearly labs Female Reproductive History Questions: metorrhagia: No, sexually active: Yes, dyspareunia: No and PCB: No Menopausal Symptoms: No hot flashes, No night sweats, No weight change, No mood changes, No difficulty concentrating, No sleep problems and No change in libido ROS Const Constitutional: Reports as per HPI; Denies fatigue, increased appetite, poor appetite, night sweats, weight gain or weight loss Cardio Card: Denies chest pain Resp Resp: Denies cough or dyspnea GI GI: Reports as per HPI; Denies abdominal pain, bloating, constipation, nausea or vomiting : Reports as per HPI, urinary incontinence and other; Denies difficulty voiding, dysuria, hematuria, hot flashes, nipple discharge, pelvic pain, prolapse symptoms, urinary frequency, urinary urgency, vaginal discharge, vaginal dryness, vaginal odor or vaginal pruritus Skin Skin/Breast: Denies changing lesions, breast mass, breast pain, breast skin changes or nipple discharge Psych Psych: Denies anxiety, change in libido, depression or difficulty concentrating Exam Const General: cooperative, healthy appearing, comfortable, no acute distress, w (more content not included)... Normal [facility] SCRN MAMM (CAD)W/RUDDY BILATo n 12-19-2023 SCRN MAMM (CAD)W/RUDDY BILAT [facility] [address] [place] [address] [id number] SCRN MAMM (CAD)W/RUDDY BILAT MR#: [id number] Acct: [id number] Name: ANGELICA GONZALEZ Rep #: [id number] : 1960 F 63 From: Geoff nunez MD PCP: Dr. Donna Arnold MD Status: [facility] Study: SCRN MAMM (CAD)W/RUDDY BILAT Date of Exam: 12/03 09/25 Exam# [id number] Ordering Dr: Frances Tineo [id number] MAMMOGRAPHY - BILATERAL SCREENING REASON FOR EXAM: Female, 63 years old. Routine annual screening examination. PERTINENT HISTORY: Non-contributory. TECHNIQUE: Digital bilateral breast ruddy (3D mammographic acquisition) in the CC and MLO projections. 2-D mediolateral oblique (MLO) and craniocaudad (CC) views of both breasts were obtained. CAD: Full Field Digital Mammography with Computer Added Detection was performed. COMPARISON: Comparison is made with prior study dated September 30, 2022 and September 22, 2021. FINDINGS: Breast Composition: There are scattered areas of fibroglandular density. There are no dominant masses or suspicious calcifications. No other significant abnormalities are identified. There has been no significant change since the prior study. BI/SCRN MAMM (CAD)W/RUDDY BILAT IMPRESSION: Stable bilateral screening mammogram. Yearly follow-up mammogram recommended. (A) ASSESSMENT CATEGORY: BIRADS Category 1: Negative. A letter regarding these results will be sent to the patient by the facility within 30 days. Approximately 10% of breast cancers are not detected by mammography. A normal mammogram should not delay biopsy of a clinically suspicious abnormality. [id number] Electronically Signed: Geoff Oreilly MD at 9:30 EDT , CC: Dr. Donna Arnold MD; Dr. Frances Tineo MD Air Brake Rigger: Signed Normal [facility] Basophil percentageon 2021 Chloride [Moles/Vol] 106 mmol/L 98-[address] [facility] Work Phone: Cholesterol [Mass/Vol] 234 mg/dL <200 [place] [address] [facility] Work Phone: Comment on above: <200 mg/dL Desirable 200-240 mg/dL Borderline >240 mg/dL High Risk Glucose [Mass/Vol] 89 mg/dL 74-106 [facility] Work Phone: Potassium [Moles/Vol] 4.1 mmol/L 3.5-5.[address] [facility] Work Phone: Sodium [Moles/Vol] 141 mmol/L 136-145 [facility] Work Phone: Triglyceride [Mass/Vol] 78 mg/dL <199 [facility] Work Phone: Comment on above: The drugs N-Acetylcy steine and Metamizole may falsely depress this assay.Serum Triglycerides Reference Interval Normal <150 mg/dL Borderline high 150 - 199 mg/dL High 200 - 499 mg/dL Very High > or = 500 mg/dL Laboratory - Chemistry and C hemistry - challengeon 12-11-2021 CO2 [Moles/Vol] 30.0 mmol/L 21.0-32.0 [facility] Work Phone: Urea nitrogen/Creatinine [Mass ratio] 24.1 mg/mg 10-20 [facility] Work Phone: No Panel Informationon 12-11 Estimated GFR (MDRD) Amer 96 mL/min >60 [facility] Work Phone: Comment on above: GFR Calc Estimated GFR (MDRD) Non-Af Amer 79 mL/min >60 [facility] Work Phone: Comment on above: Non- GFR Calc Ionized Calcium 4.9 mg/dL 4.5-5.6 [facility] Work Phone: Comment on above: Performed at: [address] [id number] Director: Deshawn Hoffman PhD, Phone: [phone] Parathyroid Hormone (Intact) 35.3 pg/mL 18.4-80.1 [facility] Work Phone: Thyroid Stimulating Hormone (TSH) 3.01 uIU/mL 0.358-3.74 [facility] Work Phone: Vitamin D 25-Hydroxy 32.9 ng/mL [facility] Work Phone: Comment on above: Vitamin D 25(OH) Sta tus Range Deficiency <20 ng/mL (50nmol/L) Insufficiency 20 - 30 ng/mL (50 - 75 nmol/L) Sufficiency 30 - 100 ng/mL (75 - 250 nmol/L) Toxicity >100 ng/mL (>250 nmol/L) Serum or plasma calcium kathy urement (mass/volume)on 12-11-2021 Calcium [Mass/Vol] 8.9 mg/dL 8.5-10.1 [facility] Work Phone: Serum or plasma cholesterol in HDL measurement (mass/volume)on 12-11-2021 Cholesterol in HDL [Mass/Vol] 59 mg/dL >40 [facility] Work Phone: Comment on above: The drugs N-Acetylcy steine and Metamizole may falsely depress this assay. Reference Range HDL <40 mg/dL Low HDL Cholesterol HDL >or= 60 mg/dL High HDL Cholesterol Serum or plasma cholesterol in VLDL measurement (mass/volume)on 12-11-2021 Cholesterol in VLDL [Mass/Vol] 16 mg/dL 5-40 [facility] Work Phone: Serum or plasma creatinine m easurement (mass/volume)on 12-11-2021 Creatinine [Mass/Vol] 0.79 mg/dL 0.55-1.02 [facility] Work Phone: Comment on above: The validity of the calculated GFR & GFRAA in patients over 70 years has not been determined. Clinical correlation is essential. Serum or plasma low density lipoprotein (LDL) cholesterol measurement (mass/volume)on 12-11-2021 Cholesterol in LDL [Mass/Vol] 159 mg/dL 0-130 [facility] Work Phone: Serum or plasma urea nitroge n measurement (mass/volume)on 12-11-2021 Urea nitrogen [Mass/Vol] 19 mg/dL 7-18 [facility] Work Phone: Thin prep Papanicolaou smear with manual screeningon 12-11-2021 Thin prep Papanicolaou smear with manual screening 5 5-15 [facility] Work Phone: CNPNon 08-07-2020 CNPN Telephone (FAMPWS) -------- ANGELICA GONZALEZ ([id number]) 1960 F Date Time Provider Department 08/07/20 ALESSANDRO GRAHAM III During your visit today, we recorded the following information about you: China Ledesma RN 08/07/2020 2:40 PM Signed Patient asking for her Mammogram screening order with Ruddy faxed to [facility]. Please review and advise. NIKI Albright III, MD 08/07/2020 5:27 PM Signed Order has been handwritten MD Joleen Al III, Ma 08/20/2020 11:37 AM Signed Has this been faxed? Joleen Baig Cma 08/20/2020 1:21 PM Signed This was already done Hanny Baig Cma Allergies As of Date: 08/07/2020 Noted Allergy Reaction FOSAMAX (ALENDRONATE SODIUM) 02/24/2016 5 - Intolerance Comments: heartburn MINOCYCLINE 12/18/2004 SULFA (SULFONAMIDE ANTIBIOTICS) 12/18/2004 5 - Intolerance Comments: stomach pain Date Reviewed: 06/12/2018 Reviewed by: Gabriela (Rn) NIKI Islas - Fully Assessed Reason for Visit: [facility] mammogram order [Other] Primary Visit Diagnosis:Encounte r for screening mammogram for malignant neoplasm of breast [Z12.31] Order(s):[facility] SCREENING W RUDDY [[id number]] Order #: [id number] FUTURE Prescriptions as of 08/07/2020 Sig: SUDAFED ORAL Take by mouth as directed. IBUPROFEN 200 MG TABLET Take 200 mg by mouth every 6 * Problem List As Of Date 08/07/2020 Noted Resolved Other acne [L70.8] 06/30/2011 ESOPHAGEAL REFLUX [K21.9] 12/18/2004 Palpitations [R00.2] 05/05/2006 06/30/2011 Dermatophytosis of nail [B35.1] 05/29/2010 06/30/2011 Bunion [M21.619] 11/27/2010 06/30/2011 Other hammer toe (acquired) [M20.40] 12/14/2010 06/30/2011 Menometrorrhagia [N92.1] 06/30/2011 10/16/2014 Cervical polyp [N84.1] 06/02/2012 10/16/2014 Menopause [Z78.0] 01/11/2013 Anxiety [F41.9] 01/11/2013 Osteopenia [M85.80] 02/01/2014 Hyperlipidemia with target LDL less than 130 [E*02/07/2014 Special screening for malignant neoplasms, colo*05/09/2014 05/09/2014 History of colonoscopy with polypectomy [Z98.89*11/14/2014 Colon polyps [K63.5] 06/06/2015 06/06/2015 Idiopathic hypercalciuria [R82.994] 03/19/2016 Perennial allergic rhinitis [J30.89] 05/05/2016 Dysfunction of eustachian tube [H69.80] 05/05/2016 Family history of ischemic heart disease [Z82.4*05/05/2016 Abscess of calf [L02.419] 12/14/2016 01/13/2018 Tubular adenoma of colon [D12.6] 06/03/2015 History of colonic polyps [Z86.010] 05/04/2018 Encounter Status:Closed by WORKMAN HANNY LOPEZ on 08/20/20 [facility] CNOVon 06-20-2020 CNOV Office Visit (FAMPWS) -------- ANGELICA GONZALEZ ([id number]) 1960 F Date Time Provider Department 06/20/20 8:00 AM ALESSANDRO GRAHAM III During your visit today, we recorded the following information about you: Temperature Pulse Respiration Blood pressure 98.6 degrees 78/minute 16/minute 121/84 Weight Height 55.8 kg 1.603 m Alessandro Graham III MD 06/20/2020 8:57 AM Signed SUBJECTIVE: This is a 60 year old female that is here today for wellness exam. 1. lab review and wellness form completed. 2. good diet, rowing machine and spin bike, walking 3. for past has had pain L buttock after moving furniture last mo. Getting better. 4. received J AND J covid vaccine last wk and now has mild VICKERS, fatigue. 5. allergic rhinitis. Sudafed rare , fluticasone spray 6. recommend shingrix 7. she declined HIV testing. no chest pain, angina, NORTON, cough, abd pain, change in BM, rectal bleeding, change in urination breast and pelvic exams are done elsewhere PAST MEDICAL HISTORY Diagnosis Date - Acute infective polyneuritis (HCC) 1996 [place] - Anxiety 01/11/2013 - Broken leg 06/09/2013 right tibia and fibula - GERD (gastroesophageal reflux disease) - History of colonoscopy with polypectomy 05/09/14 tubular adenoma of cecum - Hyperlipidemia LDL goal < 130 02/07/2014 - Idiopathic hypercalciuria 03/19/2016 - Menopause 01/11/2013 - Osteoporosis - Other acne - Tubular adenoma of colon 06/03/2015 Current Outpatient Medications on File Prior to Visit Medication Sig - PSEUDOEPHEDRINE HCL (SUDAFED ORAL) Take by mouth as directed. - ibuprofen (MOTRIN) 200 mg tablet Take 200 mg by mouth every 6 hours as needed. No current facility-administe red medications on file prior to visit. FAMILY HISTORY Problem Relation Age of Onset - Hypertension Mother - Diabetes Mother - Cancer Mother Lymphoma - Heart Father 50 [place] - Ischemic Heart Disease Brother 61 coronary stent - other (alcoholism) Sister - None Sister - None Sister - other (Down's syndrome) Sister Social History Tobacco Use - Smoking status: Never Smoker - Smokeless tobacco: Never Used Substance Use Topics - Alcohol use: Yes Comment: RARELY - Drug use: No BP 121/84 Pulse 78 Temp 37 ?C (98.6 ?F) (Temporal Artery) Resp 16 Ht 160.3 cm (5' 3.11) Wt 55.8 kg (123 lb) LMP 09/18/2012 BMI 21.71 kg/m? . OBJECTIVE: APPEARANCE Well appearing, alert, in no acute distress, well-hydrated, well nourished. NECK Supple, no adenopathy; thyroid symmetric, normal size, no bruits HEART RRR with normal S1 and S2, no murmurs, no gallops, no JVD appreciated LUNG clear to auscultation ABDOMEN , soft, non-tender, non-distended, without organomegaly or palpable masses, no tenderness to palpation BACK: good flexion and extension, mild pain to palpation in the LS spine midline EXTREMITIES Extremities normal, No deformities, No skin discoloration, No edema and Normal pulses bilaterally. NEURO Awake, alert and oriented x 3, Normal gait and No involuntary motions. Lab Results for ANGELICA GONZALEZ ( ) as of 06/20/2020 08:17 Ref. Range 06/16/2020 07:36 06/16/2020 07:37 Sodium Latest Ref Range: 136 - 144 mmol/L 138 Potassium Latest Ref Range: 3.7 - 5.1 mmol/L 4.2 Chloride Latest Ref Range: 97 - 105 mmol/L 101 CO2 Latest Ref Range: 22 - 30 mmol/L 27 BUN Latest Ref Range: 7 - 21 mg/dL 20 Creatinine Latest Ref Range: 0.58 - 0.96 mg/dL 0.87 Glucose Latest Ref Range: 74 - 99 mg/dL 93 Protein, Total Latest Ref Range: 6.3 - 8.0 g/dL 6.6 Calcium Latest Ref Range: 8.5 - 10.2 mg/dL 9.0 Albumin Latest Ref Range: 3.9 - 4.9 g/dL 4.4 Bilirubin, Total Latest Ref Range: 0.2 - 1.3 mg/dL 0.2 Alkaline Phosphatase Latest Ref Range: 34 - 123 U/L 102 ALT Latest Ref Range: 7 - 38 U/L 9 AST Latest Ref Range: 13 - 35 U/L 17 Anion Gap Latest Ref Range: 9 - 18 mmol/L 10 eGFR- Unknown >60 eGFR-All Other Races Latest Units: . >60 Cholesterol, Total Latest Ref Range: <200 mg/dL 212 (H) Triglyceride Latest Ref Range: <150 mg/dL 51 Fasting Time Latest Units: hrs 12 HDL Cholesterol Latest Ref Range: >39 mg/dL 58 LDL Cholesterol Latest Ref Range: <100 mg/dL 144 (H) VLDL Cholesterol Latest Ref Range: <30 mg/dL 10 TC:HDL Ratio Latest Ref Range: <5.10 3.66 LDL:HDL Ratio Latest Ref Range: <2.54 2.48 Non HDL Cholesterol Latest Ref Range: <130 mg/dL 154 (H) Hematocrit Latest Ref Range: 36.0 - 46.0 % 41.0 WBC Latest Ref Range: 3.70 - 11.00 k/uL 3.59 (L) RBC Latest Ref Range: 3.90 - 5.20 m/uL 4.59 Hemoglobin Latest Ref Range: 11.5 - 15.5 g/dL 13.8 Platelet Count Latest Ref Range: 150 - 400 k/uL 164 MCV Latest Ref Range: 80.0 - 100.0 fL 89.3 MCH Latest Ref Range: 26.0 - 34.0 pG 30.1 MCHC Latest Ref Range: 30.5 - 36.0 g/dL 33.7 MPV Latest Ref Range: 9.0 - 12.7 fL 11.4 RDW-CV Latest Ref Range: 11.5 - 15.0 % 12.7 Absolute nRBC L (more content not included)... Normal [facility] CBCon 06-16-2020 Absolute nRBC <0.01 Normal <0.01 [facility] Erythrocyte distribution width (RBC) [Ratio] 12.7 % Normal 11.5-15.0 [facility] Hematocrit (Bld) [Volume fraction] 41.0 % Normal 36.0-46.0 [facility] Hemoglobin (Bld) [Mass/Vol] 13.8 g/dL Normal 11.5-15.5 [facility] MCH 30.1 pG Normal 26.0-34.0 [facility] MCHC (RBC) [Mass/Vol] 33.7 g/dL Normal 30.5-36.0 [facility] MCV (RBC) [Entitic vol] 89.3 fL Normal 80.0-100.0 [facility] Platelet mean volume (Bld) [Entitic vol] 11.4 fL Normal 9.0-12.7 [facility] Platelets (Bld) [#/Vol] 164 10*3/uL Normal 150-400 [facility] RBC (Bld) [#/Vol] 4.59 10*6/uL Normal 3.90-5.20 [facility] WBC (Bld) [#/Vol] 3.59 10*3/uL Low 3.70-11.00 [facility] Comp Metabolic Panelon 06-16 Albumin [Mass/Vol] 4.4 g/dL Normal 3.9-4.9 [facility] ALP [Catalytic activity/Vol] 102 U/L Normal 34-123 [facility] ALT [Catalytic activity/Vol] 9 U/L Normal 7-38 [facility] Anion gap [Moles/Vol] 10 mmol/L Normal 9-18 [facility] AST [Catalytic activity/Vol] 17 U/L Normal 13-35 [facility] Bilirubin [Mass/Vol] 0.2 mg/dL Normal 0.2-1.3 [facility] Calcium [Mass/Vol] 9.0 mg/dL Normal 8.5-10.2 [facility] Chloride [Moles/Vol] 101 mmol/L Normal 97-105 [facility] CO2 [Moles/Vol] 27 mmol/L Normal 22-30 [facility] Creatinine [Mass/Vol] 0.87 mg/dL Normal 0.58-0.96 [facility] eGFR- Amer. >60 Normal [facility] eGFR-All Other Races >60 Normal [facility] Comment on above: Result Comment: eGFR (Estimated GFR) Units of measure: mL/min/1.73 meters squared eGFR is derived from the reexpressed MDRD Study equation using the following parameters: serum creatinine, age, gender and race. The creatinine assay has been calibrated to be traceable to IDMS. An eGFR <60 mL/min/1.73m2 for >3 months is consistent with chronic kidney disease. Refer to KDOQI guidelines for clinical interpretation. In patients with unstable renal function, e.g. those with acute kidney injury, the eGFR may not accurately reflect actual GFR. Glucose [Mass/Vol] 93 mg/dL Normal 74-99 [facility] Comment on above: Result Comment: The [place] Diabetes Association (ADA) provides guidance for cutoff values for fasting glucose and random glucose. The ADA defines fasting as no caloric intake for at least 8 hours. Fasting plasma glucose results between 100 to 125 mg/dL indicate increased risk for diabetes (prediabetes). Fasting plasma glucose results greater than or equal to 126 mg/dL meet the criteria for diagnosis of diabetes. In the absence of unequivocal hyperglycemia, results should be confirmed by repeat testing. In a patient with classic symptoms of hyperglycemia or hyperglycemic crisis, random plasma glucose results greater than or equal to 200 mg/dL meet the criteria for diagnosis of diabetes. Reference: Standards of Medical Care in Diabetes 2016, [place] Diabetes Association. Diabetes Care. 2016.39(Suppl 1). Potassium [Moles/Vol] 4.2 mmol/L Normal 3.7-5.1 [facility] Protein [Mass/Vol] 6.6 g/dL Normal 6.3-8.0 [facility] Sodium [Moles/Vol] 138 mmol/L Normal 136-144 [facility] Urea nitrogen [Mass/Vol] 20 mg/dL Normal 7-21 [facility] Lipid Panel, [place] 06-16-2 021 Cholesterol [Mass/Vol] 212 mg/dL High <200 [facility] Comment on above: Result Comment: <200 mg/dL, Desirable 200-239 mg/dL, Borderline high >239 mg/dL, High Performed By: #### L IPB #### [facility] [address] [place] [address] Cholesterol in HDL [Mass/Vol] 58 mg/dL Normal >39 [facility] Comment on above: Result Comment: 40-5 9 mg/dL, Acceptable >59 mg/dL, High: Negative risk factor for coronary heart disease <40 mg/dL, Low: Positive risk factor for coronary heart disease Performed By: #### L IPB #### [facility] [address] [place] [address] Cholesterol in LDL [Mass/Vol] 144 mg/dL High <100 [facility] Comment on above: Result Comment: <100 mg/dL, Optimal 100-129 mg/dL, Near optimal/above optimal 130-159 mg/dL, Borderline high 160-189 mg/dL, High >189 mg/dL, Very high Secondary prevention optimal LDL Cholesterol levels are recommended to be < 70 mg/dL Performed By: #### L IPB #### [place] [address] [place] [address] Fasting Time 12 hrs Normal [facility] Comment on above: Performed By: #### L IPB #### [place] [address] LDL:HDL Ratio 2.48 Normal <2.54 [facility] Comment on above: Result Comment: Refe rence: 1. National Cholesterol Education Program ATP III Guideline At-A-Glance Quick Desk Reference: National Heart, Lung, and Blood [place]. National Institutes of Health. 2001: NIH Publication No. 01-3305. 2. An International Atherosclerosis Society position paper: global recommendations for the management of dyslipidemia: executive summary, Atherosclerosis. 2014: 232(2):410-413. Performed By: #### L IPB #### [place] [address] [place] [address] Non HDL Cholesterol 154 mg/dL High <130 [facility] Comment on above: Result Comment: <130 mg/dL, Optimal 130-159 mg/dL, Near optimal/above optimal 160-189 mg/dL, Borderline high 190-219 mg/dL, High >219 mg/dL, Very high Secondary prevention optimal non HDL Cholesterol levels are recommended to be < 100 mg/dL Performed By: #### L IPB #### [facility] [address] [place], [place] [address] TC:HDL Ratio 3.66 Normal <5.10 [facility] Comment on above: Performed By: #### L IPB #### [facility] [address] [place], [place] [address] Triglyceride [Mass/Vol] 51 mg/dL Normal <150 [facility] Comment on above: Result Comment: <150 mg/dL, Normal 150-199 mg/dL, Borderline high 200-499 mg/dL, High >499 mg/dL, Very high Performed By: #### L IPB #### [facility] [address] [place], [place] [address] VLDL Cholesterol 10 mg/dL Normal <30 [facility] Comment on above: Performed By: #### L IPB #### [place] [address] [place] [id number] CNPNon 05-29-2020 CNPN Telephone (FAMPWS) -------- ANGELICA GONZALEZ ([id number]) 1960 F Date Time Provider Department 05/29/20 ALESSANDRO GRAHAM III During your visit today, we recorded the following information about you: Maribel Castellon LPN 05/29/2020 11:23 AM Signed Pt has an appt for physical on 06/20 and is asking what labs pcp wants done before appt. Call pt with 's message. Maribel Graham III MD 05/29/2020 1:22 PM Signed Orders have been filed Alessandro Graham III, MD, FAAFP Mari Nguyen CMA, MA 05/29/2020 1:50 PM Signed Patient notified, voiced understanding. Mari Nguyen CMA Allergies As of Date: 05/29/2020 Noted Allergy Reaction FOSAMAX (ALENDRONATE SODIUM) 02/24/2016 5 - Intolerance Comments: heartburn MINOCYCLINE 12/18/2004 SULFA (SULFONAMIDE ANTIBIOTICS) 12/18/2004 5 - Intolerance Comments: stomach pain Date Reviewed: 06/12/2018 Reviewed by: Gabriela (Rn) NIKI Islas - Fully Assessed Reason for Visit: Lab Orders [1688] Primary Visit Diagnosis:Hyperlip idemia with target LDL less than 130 [E78.5] Other Visit Diagnosis:Osteopen ia of lumbar spine [M85.88] Order(s):COMP METABOLIC PANEL [SQCMP] Order #: [id number] FUTURE LIPID PANEL BASIC [SQLIPB] Order #: [id number] FUTURE CBC [SQCBC] Order #: [id number] FUTURE Prescriptions as of 05/29/2020 Sig: SUDAFED ORAL Take by mouth as directed. IBUPROFEN 200 MG TABLET Take 200 mg by mouth every 6 * Problem List As Of Date 05/29/2020 Noted Resolved Other acne [L70.8] 06/30/2011 ESOPHAGEAL REFLUX [K21.9] 12/18/2004 Palpitations [R00.2] 05/05/2006 06/30/2011 Dermatophytosis of nail [B35.1] 05/29/2010 06/30/2011 Bunion [M21.619] 11/27/2010 06/30/2011 Other hammer toe (acquired) [M20.40] 12/14/2010 06/30/2011 Menometrorrhagia [N92.1] 06/30/2011 10/16/2014 Cervical polyp [N84.1] 06/02/2012 10/16/2014 Menopause [Z78.0] 01/11/2013 Anxiety [F41.9] 01/11/2013 Osteopenia [M85.80] 02/01/2014 Hyperlipidemia with target LDL less than 130 [E*02/07/2014 Special screening for malignant neoplasms, colo*05/09/2014 05/09/2014 History of colonoscopy with polypectomy [Z98.89*11/14/2014 More... Colon polyps [K63.5] 06/06/2015 06/06/2015 Idiopathic hypercalciuria [R82.994] 03/19/2016 Perennial allergic rhinitis [J30.89] 05/05/2016 Dysfunction of eustachian tube [H69.80] 05/05/2016 Family history of ischemic heart disease [Z82.4*05/05/2016 Abscess of calf [L02.419] 12/14/2016 01/13/2018 Tubular adenoma of colon [D12.6] 06/03/2015 History of colonic polyps [Z86.010] 05/04/2018 More... Encounter Status:Closed by MARI NGUYEN CMA on 05/29/20 Normal [facility] Office Visit: est annualon 0 12-14-2016 Documentation of current medications (procedure) Done Invalid Interpretation Code [facility] Fall risk assessment No Invalid Interpretation Code [facility] Hemoglobin.gastrointesti nal Ql (St) not done Invalid Interpretation Code [facility] Protein mass conc Done [facility] Tobacco smoking status NHIS Never Invalid Interpretation Code [facility] Tobacco smoking status NHIS Never smoker [facility] Tobacco use CPHS Never smoker Invalid Interpretation Code [facility] Office Visit: est annualon 0 07-03-2016 MG Breast screening Normal Bilateral Invalid Interpretation Code [facility] Office Visit: est annualon 0 04-04-2015 General categories Cyto stain Interp (Cervical or vaginal smear or scraping) Normal Invalid Interpretation Code [facility] Vital Signs Date Time Vital Sign Value Performing Clinician Agnieszka gracia 07-12-2024 08:41-0400 Body height 160.[address] Donna Arnold MD Work Phone: [facility] 07-12-2024 08:41-0400 Body mass index (BMI) [Ratio] 22.3 kg/m2 Dr. Donna Arnold MD Work Phone: [facility] 07-12-2024 08:41-0400 Body weight 57.[address] Donna Arnold MD Work Phone: [facility] 07-12-2024 08:41-0400 Diastolic blood pressure 78 mm[Hg] Dr. Donna Arnold MD Work Phone: [facility] 07-12-2024 08:41-0400 Systolic blood pressure 110 mm[Hg] Dr. Donna Arnold MD Work Phone: [facility] 01-05-2022 08:29-0400 Body height 160.[address] Oleksandr Almanza Work Phone: [facility] Work Phone: 10-02-2021 11:09-0400 Body height 160.[address] Oleksandr Almanza Work Phone: [facility] Work Phone: 10-02-2021 11:08-0400 Body mass index (BMI) [Ratio] 22.2 kg/m2 Dr. Oleksandr Almanza Work Phone: [facility] Work Phone: 10-02-2021 11:08-0400 Body weight 56.[address] Oleksandr Almanza Work Phone: [facility] Work Phone: 10-02-2021 11:08-0400 Diastolic blood pressure 76 mm[Hg] Dr. Oleksandr Almanza Work Phone: [facility] Work Phone: 10-02-2021 11:08-0400 Systolic blood pressure 118 mm[Hg] Dr. Oleksandr Almanza Work Phone: [facility] Work Phone: 12-14-2016 16:09-0400 BMI (Body Mass Index) 20.97 kg/m2 Frances Tineo MD [facility] 12-14-2016 16:090400 Body Temperature 97.5 [degF] Frances Tineo MD [facility] 12-14-2016 16:09-0400 BP Diastolic 78 mm[Hg] Frances Tineo MD [facility] 12-14-2016 16:09-0400 BP Systolic 119 mm[Hg] Frances Tineo MD [facility] 12-14-2016 16:090400 Height 162.56 cm Frances Tineo MD [facility] 12-14-2016 16:09-0400 Pulse (Heart Rate) 70 /min Frances Tineo MD [facility] 12-14-2016 16: Respiratory Rate 16 /min Frances Tineo MD [facility] 12-14-2016 16:0 Weight 55.43 kg Frances Tineo MD [facility] Encounters Encounter Date Encounter Type Care Provider Facility Start: 12-20-2024 ambulatory Frances Aaron lity:[facility] Start: 07-12-2024 End: 07-12-[address] Donna Arnold MD Work Phone: [facility] Work Phone: Start: 07-12-2024 End: 07-12-2024 Patient encounter procedure Catalina Parrish NP-C -Laboratory, Specimen Work Phone: Start: 07-12-2024 End: 07-12-2024 Patient encounter procedure Catalina Parrish MARKETING SYSTEMS ANALYST-C -[facility] Work Phone: Start: 07-12-2024 End: 07-12-2024 ambulatory Donna Clayton Facility:[facility] Start: 07-12-2024 End: 07-12-2024 ambulatory Donna Arnold Facility:[facility] Start: 06-25-2024 End: 06-25-[address] Donna Arnold MD Work Phone: [facility] Work Phone: Start: 06-25-2024 End: 06-25-[address] Donna Arnold MD -Laboratory Work Phone: Start: 06-25-2024 End: 06-25-2024 ambulatory Donna Arnold Facility:[facility] Start: 01-18-2024 End: 01-18-2024 ambulatory Frances Tineo Facility:[facility] Start: 12-19-2023 Encounter for gynecological examination (general) (routine) with abnormal findings Frances Tineo [facility] Start: 12-19-2023 End: 12-19-2023 ambulatory [facility] Facility:[facility] Start: 12-19-2023 End: 12-19-2023 ambulatory Frances Tineo Facility:[facility] Start: 08-24-[address] Jocelyn Arnold MD Work Phone: [facility] Start: 01-05-2022 End: 01-05-[address] Oleksandr Almanza Work Phone: [facility] Work Phone: Start: 01-05-2022 End: 01-05-[address] Oleksandr Almanza Work Phone: [facility]-Outpatient Bone Densitometry Start: 12-11-2021 End: 12-11-[address] Oleksandr Almanza Work Phone: [facility] Work Phone: Start: 12-11-2021 End: 12-11-[address] Oleksandr Almanza Work Phone: [facility] Start: 10-02-2021 End: 10-02-[address] Oleksandr Almanza Work Phone: [facility] Start: 09-22-2021 End: 09-22-2021 Patient encounter procedure [facility]-Outpatient Breast Imaging Procedures Date Procedure Procedure Detail Performing Clinician Start: 07-12-[address] Donna Arnold MD Work Phone: Start: 07-12-[address] Donna brewster MD Work Phone: Start: 06-25-[address] Donna Parkinson Work Phone: Start: 01-05-2022 Dual energy X-ray absorptiometry Dr. Oleksandr Almanza Work Phone: Start: 09-22-2021 Screening mammography Start: 12-14-2016 Gynecologic examination Gis Coordinator annual exam Frances parker MD Start: 12-14-2016 Screening mammography Screening mammogram for breast cancer Frances Tineo MD Plan of Treatment Date Care Activity Detail Author Start: 12-14-2016 End: 12-14-2016 Appointment Appointment [facility] Start: 12-14-2016 End: 12-14-2016 Dxa bone density, axial Dual-energy X-ray absorptiometry (DXA), bone density study, 1 or more sites; [facility] Start: 12-14-2016 End: 12-14-2016 Mammogram, screening Mammogram, Screening, both breasts [facility] Payers Date Payer Category Payer Unknown [id number] 2023 Self-pay [id number] 2023 Unknown [id number] 2004 Unknown [facility] PPO [id number] Private Health Insurance [id number] Unknown [id number] 62 Unknown [id number] 62 Unknown [id number] 62 Unknown [id number] 62 Unknown [id number] 62 Unknown [id number] 62 Unknown [id number] 62 Social History Date Type Detail Facility Start: 10-01-2020 End: 10-02-2021 Tobacco smoking status GAIS Unknown if ever smoked [facility] Work Phone: Start: 02-04-2017 None [facility] Start: 02-04-2017 Spouse/ Signif icant Other [facility] Start: 03-04-2017 Non-smoker [facility] Start: 1960 Sex Assigned At Female W [facility] Start: 12-19-2023 Tobacco smoking status NHIS Never smoked tobacco (finding) [facility] Start: 06-30-2024 End: 07-16-2024 Sex Female (finding) [facility] Evaluation note 07-12-2024 Note Date & Type Note Facility 07-12-2024 Evaluation note Diagnosis Onset Date Resolution Atrophic vaginitis acute July 12, 2024 8:39am [facility] Work Phone: Clinical Note 04-06-2021 Note Date & Type Note Facility 04-06-2021 Note Patient Outreach (MOLLY TNAV) ANGELICA GONZALEZ ([id number]) 1960 F Date Time Provider Department 04/06/21 FRANSISCA TAYLOR During your visit today, we recorded the following information about you: Fransisca Taylor MA 04/06/2021 8:13 AM Signed POPULATION HEALTH NAVIGATION OUTREACH Action/FYI Attempted to contact patient, no answer and left message requesting a return call to update PCP and schedule Wellness Visit. [employer] message also sent. Last Wellness: 06/20/2020 Contact made with patient or family member? NO Pt identified by name and : NO Outreach Outcome/Action Unable to reach patient: Left message [employer] message sent Reason for Outreach Attribution: Provider Off-boarding Payer: Payor: AETNA / Plan: AETNA [facility] / Product Type: PPO / Care Gap Reviewed:: Annual Wellness visit Reminder: Reminder note to check Health Maintenance for items below Health Maintenance items due: SHINGRIX VACCINE(1 of 2) Never done COVID-19 VACCINE(2 - Booster for Laura series) due on 08/12/2020 DTAP,TDAP,TD(2 - Td or Tdap) due on 11/17/2020 PAP TESTING due on 12/09/2020 HPV TESTING due on 12/09/2020 Advanced Directives Completed: Have you ever planned for future healthcare decisions with a power of laborer carpentry dock, living will, or advance directives? Referrals: Message Sent to Practice: Navigation Signature: Fransisca Taylor MA April 06, 2021 8:10 AM Allergies As of Date: 04/06/2021 Noted Allergy Reaction FOSAMAX (ALENDRONATE SODIUM) 02/24/2016 5 - Intolerance Comments: heartburn MINOCYCLINE 12/18/2004 SULFA (SULFONAMIDE ANTIBIOTICS) 12/18/2004 5 - Intolerance Comments: stomach pain Date Reviewed: 06/12/2018 Reviewed by: Gabriela (Rn) NIKI Islas - Fully Assessed Reason for Visit: Population Health Navigation Outreach [3910] Cmt: PCP Offboarding Prescriptions as of 04/06/2021 - PSEUDOEPHEDRINE HCL (SUDAFED ORAL) Take by mouth as directed. - ibuprofen (MOTRIN) 200 mg tablet Take 200 mg by mouth every 6 hours as needed. Problem List As Of Date 04/06/2021 Noted Resolved Other acne [L70.8] 06/30/2011 ESOPHAGEAL REFLUX [K21.9] 12/18/2004 Palpitations [R00.2] 05/05/2006 06/30/2011 Dermatophytosis of nail [B35.1] 05/29/2010 06/30/2011 Bunion [M21.619] 11/27/2010 06/30/2011 Other hammer toe (acquired) [M20.40] 12/14/2010 06/30/2011 Menometrorrhagia [N92.1] 06/30/2011 10/16/2014 Cervical polyp [N84.1] 06/02/2012 10/16/2014 Menopause [Z78.0] 01/11/2013 Anxiety [F41.9] 01/11/2013 Osteopenia [M85.80] 02/01/2014 Hyperlipidemia with target LDL less than 130 [E*02/07/2014 Special screening for malignant neoplasms, colo*05/09/2014 05/09/2014 History of colonoscopy with polypectomy [Z98.89*11/14/2014 Colon polyps [K63.5] 06/06/2015 06/06/2015 Idiopathic hypercalciuria [R82.994] 03/19/2016 Perennial allergic rhinitis [J30.89] 05/05/2016 Dysfunction of eustachian tube [H69.80] 05/05/2016 Family history of ischemic heart disease [Z82.4*05/05/2016 Abscess of calf [L02.419] 12/14/2016 01/13/2018 Tubular adenoma of colon [D12.6] 06/03/2015 History of colonic polyps [Z86.010] 05/04/2018 Encounter Status:Closed by FRANSISCA TAYLOR on 04/06/21 [facility] Progress note 04-06-2021 Note Date & Type Note Facility 04-06-2021 Note HNO ID: [id number] Author: Fransisca Taylor MA Service: ? Author Type: Cylinder Block [employer] Reliner Type: Progress Notes Filed: 04/06/2021 8:13 AM Note Text: POPULATION HEALTH NAVIGATION OUTREACH Action/FYI Attempted to contact patient, no answer and left message requesting a return call to update PCP and schedule Wellness Visit. [employer] message also sent. Last Wellness: 06/20/2020 Contact made with patient or family member? NO Pt identified by name and : NO Outreach Outcome/Action Unable to reach patient: Left message [employer] message sent Reason for Outreach Attribution: Provider Off-boarding Payer: Payor: AETNA / Plan: AETNA [facility] / Product Type: PPO / Care Gap Reviewed:: Annual Wellness visit Reminder: Reminder note to check Health Maintenance for items below Health Maintenance items due: SHINGRIX VACCINE(1 of 2) Never done COVID-19 VACCINE(2 - Booster for Laura series) due on 08/12/2020 DTAP,TDAP,TD(2 - Td or Tdap) due on 11/17/2020 PAP TESTING due on 12/09/2020 HPV TESTING due on 12/09/2020 Advanced Directives Completed: Have you ever planned for future healthcare decisions with a power of laborer carpentry dock, living will, or advance directives? Referrals: Message Sent to Practice: Navigation Signature: Fransisca Taylor MA April 06, 2021 8:10 AM [facility] Progress note 06-20-2020 Note Date & Type Note Facility 06-20-2020 Note HNO ID: [id number] Author: Alessandro Graham III Service: ? Author Type: Physician Type: Progress Notes Filed: 06/20/2020 8:57 AM Note Text: SUBJECTIVE: This is a 60 year old female that is here today for wellness exam. 1. lab review and wellness form completed. 2. good diet, rowing machine and spin bike, walking 3. for past has had pain L buttock after moving furniture last mo. Getting better. 4. received J AND J covid vaccine last wk and now has mild VICKERS, fatigue. 5. allergic rhinitis. Sudafed rare , fluticasone spray 6. recommend shingrix 7. she declined HIV testing. no chest pain, angina, NORTON, cough, abd pain, change in BM, rectal bleeding, change in urination breast and pelvic exams are done elsewhere PAST MEDICAL HISTORY Diagnosis Date - Acute infective polyneuritis (HCC) 1996 gu[place]re - Anxiety 01/11/2013 - Broken leg 06/09/2013 right tibia and fibula - GERD (gastroesophageal reflux disease) - History of colonoscopy with polypectomy 05/09/14 tubular adenoma of cecum - Hyperlipidemia LDL goal < 130 02/07/2014 - Idiopathic hypercalciuria 03/19/2016 - Menopause 01/11/2013 - Osteoporosis - Other acne - Tubular adenoma of colon 06/03/2015 Current Outpatient Medications on File Prior to Visit Medication Sig - PSEUDOEPHEDRINE HCL (SUDAFED ORAL) Take by mouth as directed. - ibuprofen (MOTRIN) 200 mg tablet Take 200 mg by mouth every 6 hours as needed. No current facility-administered medications on file prior to visit. FAMILY HISTORY Problem Relation Age of Onset - Hypertension Mother - Diabetes Mother - Cancer Mother Lymphoma - Heart Father 50 [place] - Ischemic Heart Disease Brother 61 coronary stent - other (alcoholism) Sister - None Sister - None Sister - other (Down's syndrome) Sister Social History Tobacco Use - Smoking status: Never Smoker - Smokeless tobacco: Never Used Substance Use Topics - Alcohol use: Yes Comment: RARELY - Drug use: No BP 121/84 Pulse 78 Temp 37 ?C (98.6 ?F) (Temporal Artery) Resp 16 Ht 160.3 cm (5' 3.11) Wt 55.8 kg (123 lb) LMP 09/18/2012 BMI 21.71 kg/m? . OBJECTIVE: APPEARANCE Well appearing, alert, in no acute distress, well-hydrated, well nourished. NECK Supple, no adenopathy; thyroid symmetric, normal size, no bruits HEART RRR with normal S1 and S2, no murmurs, no gallops, no JVD appreciated LUNG clear to auscultation ABDOMEN , soft, non-tender, non-distended, without organomegaly or palpable masses, no tenderness to palpation BACK: good flexion and extension, mild pain to palpation in the LS spine midline EXTREMITIES Extremities normal, No deformities, No skin discoloration, No edema and Normal pulses bilaterally. NEURO Awake, alert and oriented x 3, Normal gait and No involuntary motions. Lab Results for ANGELICA GONZALEZ ( ) as of 06/20/2020 08:17 Ref. Range 06/16/2020 07:36 06/16/2020 07:37 Sodium Latest Ref Range: 136 - 144 mmol/L 138 Potassium Latest Ref Range: 3.7 - 5.1 mmol/L 4.2 Chloride Latest Ref Range: 97 - 105 mmol/L 101 CO2 Latest Ref Range: 22 - 30 mmol/L 27 BUN Latest Ref Range: 7 - 21 mg/dL 20 Creatinine Latest Ref Range: 0.58 - 0.96 mg/dL 0.87 Glucose Latest Ref Range: 74 - 99 mg/dL 93 Protein, Total Latest Ref Range: 6.3 - 8.0 g/dL 6.6 Calcium Latest Ref Range: 8.5 - 10.2 mg/dL 9.0 Albumin Latest Ref Range: 3.9 - 4.9 g/dL 4.4 Bilirubin, Total Latest Ref Range: 0.2 - 1.3 mg/dL 0.2 Alkaline Phosphatase Latest Ref Range: 34 - 123 U/L 102 ALT Latest Ref Range: 7 - 38 U/L 9 AST Latest Ref Range: 13 - 35 U/L 17 Anion Gap Latest Ref Range: 9 - 18 mmol/L 10 eGFR- Unknown >60 eGFR-All Other Races Latest Units: . >60 Cholesterol, Total Latest Ref Range: <200 mg/dL 212 (H) Triglyceride Latest Ref Range: <150 mg/dL 51 Fasting Time Latest Units: hrs 12 HDL Cholesterol Latest Ref Range: >39 mg/dL 58 LDL Cholesterol Latest Ref Range: <100 mg/dL 144 (H) VLDL Cholesterol Latest Ref Range: <30 mg/dL 10 TC:HDL Ratio Latest Ref Range: <5.10 3.66 LDL:HDL Ratio Latest Ref Range: <2.54 2.48 Non HDL Cholesterol Latest Ref Range: <130 mg/dL 154 (H) Hematocrit Latest Ref Range: 36.0 - 46.0 % 41.0 WBC Latest Ref Range: 3.70 - 11.00 k/uL 3.59 (L) RBC Latest Ref Range: 3.90 - 5.20 m/uL 4.59 Hemoglobin Latest Ref Range: 11.5 - 15.5 g/dL 13.8 Platelet Count Latest Ref Range: 150 - 400 k/uL 164 MCV Latest Ref Range: 80.0 - 100.0 fL 89.3 MCH Latest Ref Range: 26.0 - 34.0 pG 30.1 MCHC Latest Ref Range: 30.5 - 36.0 g/dL 33.7 MPV Latest Ref Range: 9.0 - 12.7 fL 11.4 RDW-CV Latest Ref Range: 11.5 - 15.0 % 12.7 Absolute nRBC Latest Ref Range: <0.01 k/uL <0.01 ASSESSMENT: lumbar strain allergic rhinitis-fair control mild hyperlipidemia PLAN: healthy diet and regular exercise same medications recommend yoga and core strengthening shingrix vaccination later in the yr. follow up with electronics technician apprentice Alessandro Graham III MD (more content not included)... [facility] Evaluation note Note Date & Type Note Facility Evaluation note No assessment information availa ble [facility] Work Phone: Evaluation note Note Date & Type Note Facility Evaluation note Diagnosis Onset Date Atrophic vaginitis acute Dyspareunia acute Encounter for routine gyneco logical examination noneactive [facility] Work Phone: Reason for referral (narrative) Note Date & Type Note Facility Reason for referral (narrative) No reason for referral information available [facility] Work Phone: Summary Purpose Family History No Family History Records Found Relationship Condition Age at Onset Recorded Date/T chanel father Cardiac disease Unknown mother Malignant neoplasm Unknown Osteoporosis Unknown Relationship Condition Age at Onset Recorded Date/T chanel father Cardiac disease Unknown Hypertension Unknown mother Malignant neoplasm Unknown Osteoporosis Unknown Diabetes mellitus Unknown Cerebrovascular accident (CVA) Unknown grandmother Osteoporosis Unknown brother History of coronary artery stent placement Unknown sister Cardiac disease Unknown Advance Directives No Advanced Directives Records Found Advance Directive Response Recorded Date/ Time Living Will No February 12, 2 016 6:28am Power of Pediatric Critical Care Nurse No February 13, 2016 6:28am Chief Complaint and Reason for Visit Chief Complaint SCREENING Chief Complaint SCREENING Annual (SEAMSTRESS FITTER) Reason for Visit Atrophic vaginitis Dyspareunia Encounter for routine gynecological examination Chief Complaint SCREENING Annual (SEAMSTRESS FITTER) OSTEOPENIA Reason for Visit Atrophic vaginitis Dyspareunia Encounter for routine gynecological examination Chief Complaint Admit Date labial burning July 12, 2024 8:3 9am Reason for Visit Admit Date Atrophic vaginitis July 12, 2024 8:3 9am Additional Source Comments INFORMATION SOURCE (unrecogn ized section and content) DATE CREATED AUTHOR 05/25/2021 [facility] DATE CREATED AUTHOR AUTHOR'S ORGANIZ ATION 11/25/2024 [facility] Goals (unrecognized section and content) Goals may be documented in a n alternate sectionGoals may be documented in an alternate sectionGoals may be documented in an alternate sectionGoals may be documented in an alternate sectionGoals may be documented in an alternate sectionGoals may be documented in an alternate sectionGoals may be documented in an alternate sectionGoals may be documented in an alternate section Care Teams (unrecognized sec tion and content) Team Status: Active Member Role Status Dates Dr. Alessandro Graham III, MD Family Provider Active Dr. Donna Arnold MD Primary Care Provider Active Team Status: Inactive Member Role Status Dates Dr. Donna Arnold MD Primary Care Provider Active Start: June 25, 2024 End: June 25, 2024 Dr. Donna Arnold MD Attending Provider Active Start: June 25, 2024 End: June 25, 2024 Dr. Donna Arnold MD Referring Provider Active Start: June 25, 2024 End: June 25, 2024 Team Status: Inactive Member Role Status Dates Dr. Donna Arnold MD Primary Care Provider Active Start: July 12, 2024 End: July 12, 2024 Dr. Donna Arnold MD Referring Provider Active Start: July 12, 2024 End: July 12, 2024 Catalina Parrish NP, NP-C Attending Provider Active Start: July 12, 2024 End: July 12, 2024 Team Status: Inactive Member Role Status Dates Dr. Donna Arnold MD Primary Care Provider Active Start: July 12, 2024 End: July 12, 2024 Catalina Parrish NP, NP-Dory Attending Provider Active Start: July 12, 2024 End: July 12, 2024 Catalina Parrish NP, NP-Dory Referring Provider Active Start: July 12, 2024 End: July 12, 2024 FOR RECORDS PERTAINING TO PATIENTS WHO ARE OR HAVE BEEN ENROLLED IN A CHEMICAL DEPENDENCY/SUBSTANCEABUSE PROGRAM, SOME INFORMATION MAY BE OMITTED. This clinical summary was aggregated from multiple sources. Caution should be exercised in using it in the provision of clinical care. This summary normalizes information from multiple sources, and as a consequence, information in this document may materially change the coding, format and clinical context of patient data. In addition, data may be omitted in some cases. CLINICAL DECISIONS SHOULD BE BASED ON THE PRIMARY CLINICAL RECORDS. [employer] provides no warranty or guarantee of the accuracy or completeness of information in this document.
--- NOTE | 2024-12-01 14:35 | RAD_ITS ---
PROCEDURE: WRIST MIN 3 VIEWS 12/01/2024 REASON FOR EXAM: TRAUMA TECHNIQUE: Procedure Code: RADWR Modality: DX Procedure: WRIST MIN 3 VIEWS COMPARISON: None. FINDINGS: There is a comminuted impacted fracture of the distal radius. There is dorsal angulation deformity. There is an avulsion fracture of the ulnar styloid. There is abnormal widening of the scapholunate distance consistent with scapholunate ligament tear. RAD/Wrist min 3 Views IMPRESSION: 1. Comminuted impacted fracture of the distal radius with dorsal angulation de formity. 2. Other findings as noted. Reading Location: [id number]
--- NOTE | 2024-12-01 16:00 | RAD_ITS ---
PROCEDURE: WRIST 2 VIEWS 12/01/2024 REASON FOR EXAM: POSTREDUCTION TECHNIQUE: Procedure Code: RADWR2 Modality: DX Procedure: WRIST 2 VIEWS Laterality: FINDINGS: Bones: The head and closed reduction of distal radius fracture alignment/positioning is near anatomic. Joints: The fracture involves the radiocarpal joint, but articulations unremarkable otherwise Soft tissues: Soft tissue swelling Other: RAD/Wrist 2 Views IMPRESSION: Satisfactory closed reduction of distal left radius fracture Reading Location: [facility]
== END 2024-12-01 17:20 | disposition home or self-care (01) ==
PROVIDERS: Emergency Provider Emergency Medicine; PCP Internal Medicine; Visit Provider Emergency Medicine
DX: S52.502A Unspecified fracture of the lower end of left radius, initial encounter for closed fracture (principal); W19.XXXA Unspecified fall, initial encounter
CPT/HCPCS: 25605; 29125; 73100; 73110; 96374; 96375; 99285; A4216; J2405

== ENCOUNTER 2024-12-11 06:53 | Day surgery (SDC) | payer OTHER, SELFPAY ==
[2024-12-11] VITALS (11 sets, daily range): BP systolic 117–154; BP diastolic 77–91; PULSE 75–82; RESP 14–18; TEMP 36.1–36.4; O2SAT 93–98; BMI 21.7
--- NOTE | 2024-12-11 07:09 | EKG12_ITS ---
Test Reason : PREOP Blood Pressure : */* mmHG Vent. Rate : 86 BPM Atrial Rate : 86 BPM P-R Int : 188 ms QRS Dur : 74 ms QT Int : 384 ms P-R-T Axes : 33 63 63 degrees QTcB Int : 459 ms Normal sinus rhythm Nonspecific ST-T wave changes Borderline When compared with ECG of 02-Sep-2005 15:27, No significant change was found Confirmed by Tristan Horne ([id number]), school photograph editor CHEY GRAVES ([id number]) on 12/12/2024 7:15:10 AM Referred By: Ivan Escamilla Confirmed By: Tristan Horne
--- NOTE | 2024-12-11 07:16 | PCM.HP.BLA ---
History and Physical Date of Admission: 12/11/24 [facility] [address] [place] [address] OFFICE VISIT Date of Service: 12/07/24 MR#: [id number] Acct: [id number] Name: ANGELICA GONZALEZ Rep #: [id number] : 1960 Provider: Dr. Ivan Escamilla DO Age/Sex: 64/F Location: [facility] [place] Status: Signed Intake Vital Signs 12/01/2512:13 12/07/2508:56 Height 5 ft 3 in 5 ft 3 in Weight: 124 lb BMI 21.9 Intake Visit Reasons: LEFT WRIST Regulator Pin Inserter Required: No Accompanied by: Is patient in pain?: Yes (left wrist) Pain scale (1-10): 4 Allergies azithromycin (From Zithromax Z-Mike) Allergy (Verified 12/07/24 09:57) OtherEnvironmental Allergies: Uncoded Allergy (Verified 12/07/24 09:57) congestionSulfa (Sulfonamide Antibiotics) Allergy (Verified 12/07/24 09:57) Othercodeine Adverse Reaction (Verified 12/07/24 09:57) Nausea Medications ?Medication ?Instructions ?Recorded ?Confirmed ?Type alprazolam 0.5 mg tablet 0.5 mg PO DAILY PRN anxiety #10 04/27/24 12/07/24 Rx tabs estradiol 0.01% (0.1 mg/gram) See Rx Instructions vaginal 07/12/24 12/07/24 Rx vaginal cream .COMPLEX #42.5 grams acetaminophen 500 mg tablet 500 mg PO Q6H PRN 12/07/24 12/07/24 History PFSH Medical History UTI (urinary tract infection) Wears glasses Post-menopausal Non-smoker Hx of colonic polyps History of group B Streptococcus (GBS) infection Osteopenia Bone fracture Osteoporosis Anxiety Surgical History Hx of colonoscopy Tibia and fibula open fracture, right H/O hand surgery Family History Father Heart disease Hypertension passed at 50 year oldMother Cancer Osteoporosis Diabetes Hypertension CVA (cerebral vascular accident)Grandmother Osteoporosis CVA (cerebral vascular accident)Brother H/O heart artery stentSister Heart disease CVA (cerebral vascular accident) Hypertension Social History number of children: 2 current occupational status: retired current occupation: retired Smoking Status: Never smoker alcohol intake: current alcohol intake frequency: holidays/special occasions only substance use type: does not use caffeine: Yes what type of physical activity do you participate in: walking and yoga frequency: 3-4 times per week seatbelt use: always do you feel safe at home: Yes 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 Ivan Escamilla, DO 12/07/24 0837. Part of today?s visit was documented by [ ], acting as scribe. ANGELICA GONZALEZ is a 64 year old F with medical history of anxiety taking alprazolam daily here today for ER follow-up 12/01/2024 date of injury 12/01/2024 left hand dominant slip and fall in the kitchen on a rug. She did have a displaced comminuted intra-articular fracture that was closed reduced in the ER. Left wrist continuous aching and burning rated 4 out of ten today. Tingling in left fingers especially with movement. Hard clam shell splint in place. Reports left arm soreness and tightness. Left elbow stiffness. Takes alprazolam as need for flying. Ortho Exam General General: Yes no acute distress and Yes well groomed Neurologic: Yes alert and Yes oriented x3 Psychologic: Yes reasonable and appropriate Right Wrist/Hand Skin/Wound: Yes Swelling and Yes Ecchymosis Left Wrist/Hand Date of injury: 12/01/24 Skin/Wound: Yes CDI, Yes Swelling and Yes Ecchymosis WRIST: bruising up into the forearm to the elbow no bony tenderness at the elbow or joint effusion She has intact station light touch in all of her fingers brisk capillary refill compartments soft Constitutional: Well-developed; well-nourished; in no acute distress Eyes: No jaundice ENT: Nares patent; no obvious deformity Cardiovascular: No cyanosis; clubbing; or edema Lymphatic: No adenopathy in area of examination Skin: No rashes or lesions in the area of examination and intact Neurologic: Alert and oriented x 3 Psychiatric: Mood and affect appropriate Supplemental Info 12/01/2024 pre and postreduction x-rays left distal radius : Comminuted intra-articular distal radius fracture with initial dorsal angulation improved alignment upon reduction questionable scapholunate widening on the prereduction x-ray however appears improved postreduction Coding Level of Care Code Off vis,new,level 3 Diagnoses Other closed intra-articular fracture of distal end of left radius, initial encounter S52.572A Encounter type: initial encounter Fracture type: closed Fracture morphology: other intra-articular Assessment and Plan Assessment and Plan (1) Distal radius fracture, left: Status: Acute Qualifiers: Encounter type: initial encounter Fracture type: closed Fracture morphology: other intra-articular Qualified Code(s): S52.572A - Other intraarticular fracture of lower end of left radius, initial encounter for closed fracture Plan Patient is here for left wrist ER follow-up for a displaced comminuted intra-articular fracture. I reviewed her x-rays that were taken in the ER with the patient. Explained that the best way to treat this specific type of fracture would be left distal radius ORIF surgical procedure in order to re-align the fracture closer together to attempt to minimize posttraumatic arthrosis of the wrist. Risk benefits alternatives were reviewed including risk of bleeding infection nerve artery tissue damage need for further surgery continued pain and stiffness and expected postoperative course including weight restrictions for 6 weeks or longer We did discuss there is a possible scapholunate injury which we we will further evaluate upon reduction and fixation of the wrist which may necessitate further surgery. She can take up to 1000mg of Tylenol every 6 hours if she needs. Hold any NSAIDs prior to surgery tentative surgery date 12/11/2024 Follow up 1 week post-op or sooner if pain, swelling, numbness or associated symptoms, or concerns develop. All questions answered. Patient in agreement of plan. 12/07/24 1114 <Electronically signed by Ivan Escamilla DO> Date Ivan Escamilla DO I have examined the patient and the H&P has been reviewed. There are no clinical changes since date of exam.
[2024-12-11] MEDS: Lactated Ringers 1,000 ML 15 ML IV (07:33)
--- NOTE | 2024-12-11 07:53 | PCM.PRE.AN2 ---
ASA Classification* ASA Classification ASA Classification: 2 Assessment & Plan Anesthesia* Anesthesia Assessment Anesthesia Assessment: Discussed sedation and/or anesthesia options, risks, benefits, and alternatives with patient/parents/legal guardian/POA. Questions invited. The patient/parents/legal guardian/POA seems to understand and agrees to proceed with anesthesia plan. Reviewed the physical assessment, medical history, allergy history and patient home medications list prior to surgery/procedure/anesthetic and documented any changes. Performed airway and anesthesia risk assessments. Anesthesia Type Anesthesia Type: General and Block (Patient would like to get block after the procedure if she decides the pain is too much. Patient understands risk/ benefits of the block. ) History Source History Obtained from:: Patient and Chart Anesthesia Focused Assessment* Temperature: 97.3 F Pulse Rate: 82 Blood Pressure: 117/91 Respiratory Rate: 18 Pulse Ox: 97 Oxygen Delivery Method: Room Air Airway Assessment Mouth opens: >3 cm Mallampati Score: III Teeth Condition: Intact Neck Range of motion (ROM): Full ROM Labs Anesthesia Preop lab: CBC WBC 4.8 K/mm3 (4.4-11.0) 08/31/23 08:08/31/23 RBC 4.64 M/mm3 (4.2-5.4) 08/31/23 08:08/31/23 Hgb 13.5 g/dL (12.0-15.0) 08/31/23 08:08/31/23 Hct 42.4 % (37-47) 08/31/23 08:08/31/23 Plt Count 191 K/mm3 (150-450) 08/31/23 08:08/31/23 CHEMISTRY Potassium 3.8 mmol/L (3.5-5.1) 08/31/23 08:28 08/31/23 Sodium 138 mmol/L (136-145) 08/31/23 08:08/31/23 BUN 21 mg/dL (7-18) H 08/31/23 08:08/31/23 Creatinine 0.77 mg/dL (0.55-1.02) 08/31/23 08:08/31/23 Glucose 93 mg/dL (74-106) 08/31/23 08:08/31/23 TSH 2.64 uIU/mL (0.358-3.74) 08/31/23 08:28 08/31/23 COAG Pre-Assessment Diagnosis/Proposed Procedure Planned Operative Procedure(s): (L) Left distal radius open reduction internal fixation Anesthesia History Anesthesia History - stuffed casing tier: Anesthesia History - stuffed casing tier Hx Hospitalization No 12/07/24 15:26 Any Problems With Anesthesia [ No 12/01/24 15:58 Closed reduction left wrist] Any Problems With Anesthesia No 12/07/24 15:26 Cholinesterase deficiency No 12/07/24 15:26 You/Your Family Experience No 12/07/24 15:26 fever (hyperthermia) with Relationship Recent Exposure to Contagious No 12/11/24 07:17 Disease Does patient have nerve No 12/07/24 15:26 stimulator Patient instructed to have device shut off --Does patient have Pacemaker No 12/11/24 07:17 or ICD? When Was Last Pacemaker Check QUESTION #4 FULL TEXT: You/Your Family Experience fever (hyperthermia) with Anesthesia Any additional information?: No Last Oral Intake Last Oral intake: Last Oral Intake NPO since 20:00 12/11/24 07:17 Meds taken in AM with sips of No 12/11/24 07:17 water? Meds patient instructed to take am of surgery Any additional information?: No PONV PONV - stuffed casing tier: PONV - stuffed casing tier Female Yes 12/07/24 15:26 HX of Motion Sickness Yes 12/07/24 15:26 HX of N/V After Surgery No 12/07/24 15:26 Non-Smoker Yes 12/07/24 15:26 Duration of Surgery greater Yes 12/07/24 15:26 than 60 minutes Number of Risk Factors 4 12/07/24 15:26 PONV Score Severe Risk 12/07/24 15:26 Any additional information?: No Height & Weight Height & Weight: Anesthesia: Height & Weight Height 5 ft 3 in 12/11/24 07:17 Weight: 55.5 kg 12/11/24 07:17 Body Mass Index (BMI) 21.7 12/11/24 07:17 Respiratory Assessment Respiratory Assessment - stuffed casing tier: Respiratory Tract Infection Hx - stuffed casing tier Hx Respiratory Tract Infection No 12/07/24 15:26 Any additional information?: No STOP Sleep Apnea STOP Sleep Apnea - stuffed casing tier: STOP Sleep Apnea - stuffed casing tier Hx Hypertension No 12/07/24 15:26 Hx Sleep Apnea No 12/07/24 15:26 CPAP BIPAP Do you snore loudly (louder No 12/07/24 15:26 than talking or can be heard Do you often feel tired/ No 12/07/24 15:26 fatigued/ sleepy during daytime? Has anyone observed you stop No 12/07/24 15:26 breathing during sleep? STOP Results Negative 12/07/24 15:26 QUESTION #5 FULL TEXT : Do you snore loudly (louder than talking or can be heard through closed doors)? Any additional information?: No Tobacco Use History Tobacco Use History - stuffed casing tier: Tobacco Use History - stuffed casing tier Tobacco Use Smoking Status Never smoker 12/07/24 15:26 Hx Tobacco Use No 12/07/24 15:26 Years Smoking Packs Smoked per Day Smoking Cessation Date was within the last 15 years Hx Smoking Cessation Date Hx Smoking Cessation Counseling Any additional information?: No Hematologic Medial History Hematologic Hx - stuffed casing tier: Hematologic Medical Hx - integration aide Hx of Blood Transfusion No 12/07/24 15:26 Hx of Transfusion in last 3 No 12/07/24 15:26 Months Date of Last Transfusion (if within last 3 months) Ever experience any problems No 12/07/24 15:26 with transfusion(s)? Specify any problems Hx of Preganancy in last 3 No 12/07/24 15:26 Months Nurse Filling Out Transfusion [id number] 12/07/24 15:26 & Questions: Date: 12/07/24 12/07/24 15:26 Time: 15:32 12/07/24 15:26 Patient unable to answer at this time (ie. confused, unrespo Any additional information?: No /Reproduction History /Reproductive History - stuffed casing tier: /Reproductive Hx- stuffed casing tier Hx Now No 12/07/24 15:26 Gestational Age (in weeks): EDC: Hx Hx Para Hx Section SAB No 07/12/24 08:44 Any additional information?: No Active Medications Active Medications: Current Medications Generic Name Dose Route Start Last Admin Trade Name Freq PRN Reason Stop Dose Admin Cefazolin Sodium 2 gm/ Sodium 110 mls @ 200 mls/hr 12/11/24 08:30 Chloride IV 12/11/24 09:02 INTRAOP ONE Lactated Ringer's 1,000 mls @ 15 mls/hr 12/11/24 07:15 12/11/24 07:33 IV 15 mls/hr .Q48H NANCY Administration PFSH Medical History Wears contact lenses High cholesterol UTI (urinary tract infection) Wears glasses Post-menopausal Non-smoker Hx of colonic polyps History of group B Streptococcus (GBS) infection Osteopenia Bone fracture Osteoporosis Anxiety Home Medications ?Medication ?Instructions ?Recorded ?Last Taken ?Type alprazolam 0.5 mg tablet 0.5 mg PO DAILY PRN anxiety #10 04/27/24 Unknown Rx tabs estradiol 0.01% (0.1 mg/gram) See Rx Instructions vaginal 07/12/24 Unknown Rx vaginal cream .COMPLEX #42.5 grams acetaminophen 500 mg tablet 500 mg PO Q6H PRN fever or pain 12/07/24 Unknown History Allergy/AdvReac Type Severity Reaction Status Date / Time azithromycin (From Zithromax Allergy Other Verified 12/11/24 07:15 Z-Mike) Environmental Allergies: Allergy congestion Verified 12/11/24 07:15 Uncoded Sulfa (Sulfonamide Allergy Other Verified 12/11/24 07:15 Antibiotics) codeine AdvReac Nausea Verified 12/11/24 07:15 Family History Father Heart disease Hypertension passed at 50 year old Mother Cancer Osteoporosis Diabetes Hypertension CVA (cerebral vascular accident) Grandmother Osteoporosis CVA (cerebral vascular accident) Brother H/O heart artery stent Sister Heart disease CVA (cerebral vascular accident) Hypertension Surgical History Hx of colonoscopy Tibia and fibula open fracture, right H/O hand surgery Social History number of children: 2 current occupational status: retired current occupation: retired Smoking Status: Never smoker alcohol intake: current alcohol intake frequency: holidays/special occasions only substance use type: does not use caffeine: Yes what type of physical activity do you participate in: walking and yoga frequency: 3-4 times per week seatbelt use: always do you feel safe at home: Yes 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
[2024-12-11] MEDS: Cefazolin 1 GM/5 ML Vial 2 GM IV (08:28)
[2024-12-11] MEDS: Midazolam 2 MG/2 ML Syringe IV (08:28)
[2024-12-11] MEDS: Lidocaine 1% (5 ml sdv) 5 ML Vial 8 ML IV (08:33)
--- NOTE | 2024-12-11 08:36 | RAD_ITS ---
PROCEDURE: WRIST 2 VIEWS 12/11/2024 REASON FOR EXAM: LT WRIST ORIF TECHNIQUE: Procedure Code: RADWR2 Modality: DX Procedure: WRIST 2 VIEWS Laterality: FINDINGS: Left wrist ORIF intraoperative fluoroscopy. 12 images. 81.6 seconds of fluoroscopic time. 1.30 mGy. See procedure report for full details. RAD/Wrist 2 Views IMPRESSION: As above. Reading Location: [id number]
[2024-12-11] MEDS: Bupiv/Epi 0.25% 30 ML Vial (09:35)
[2024-12-11] MEDS: fentaNYL 100 MCG/2 ML Ampul 150 MCG IV (09:40)
--- NOTE | 2024-12-11 10:13 | PCM.POST.ANE ---
Anesthesia: Postop Eval I Current Vital Signs Temperature: 97 F Pulse Rate: 76 Blood Pressure: 152/86 Respiratory Rate: 14 Pulse Ox: 98 Oxygen Delivery Method: Simple Mask Oxygen Flow Rate (L/min): 4 Assessment Airway patent: Yes Spontaneous unlabored respirations: Yes Mental status: Asleep nausea: No Vomiting: No Anesthesia Complication: No Fluid Hydration Crystalloid volume administer (ml): 1,100 Total IV fluid infused: 1,100 Progress Note Anesthesia document: Postop Eval 1 completed: Yes
--- NOTE | 2024-12-11 10:17 | OP.PCM_ITS ---
Operative Report (Standard) Operative Information Date of Procedure: 12/11/24 Pre-Operative Diagnosis: Comminuted intra-articular right distal radius fracture Post-Operative Diagnosis: Same Surgery/Procedure Performed: Open reduction internal fixation right distal radius finisher plate: Yes Pick Pulling Machine Tender: Yusuf Johnson Tasks completed by title i instructional assistant: Opening & closing and Implanting device Type of Anesthesia: General RN Documented Start/Stop Times: Operation Date: 12/11/24 08:30 Case Time Into Pre-Op 12/11/24 07:06 Anesthesia Start 12/11/24 08:29 Into Room 12/11/24 08:29 Procedure Start 12/11/24 08:48 Procedure End 12/11/24 10:05 Anesthesia End 12/11/24 10:08 Out of Room 12/11/24 10:08 Into Recovery 12/11/24 10:10 Procedure Start Time: 08:48 Procedure Stop Time: 10:05 Select all DRAINS/GRAFTS/IMPLANTS that apply: Implanted device Implanted device details: Synthes distal radius Estimated Blood Loss: 5 Specimen collected: No Description of surgery: Preoperative diagnosis: Displaced comminuted intra-articular distal radius fracture Postoperative diagnosis: Same plus scapholunate widening Anesthesia: General Procedure: ORIF of the distal radius Implants: Synthes distal radius variable angle locking plate Tourniquet time: 55 minutes 250 mmhg Complications: None Indication for procedure: 64-year-old female patient who had a fall onto an outstretched hand ground-level sustained injury to her right distal radius comminuted intra-articular fracture she did have a closed reduction performed in the emergency room, she follow-up in my office and discussed operative intervention we discussed risks benefits and alternatives of conservative versus surgical intervention. Including the risk of bleeding infection nerve artery tissue damage need for further surgery continued pain postoperative stiffness need for postoperative physical therapy and the expected postoperative course, we also discussed there was some concern for scapholunate ligament injury on the prereduction x-ray. Procedure: The patient was met in the preoperative holding area the operative extremity was identified by both patient and physician and marked. Patient was met by anesthesia she was brought back to the operating room on a wheeled cart and transferred to the operating table in the supine position anesthesia was started. A well-padded tourniquet was placed on the upper arm of the operative extremity. She was prepped and draped in the usual sterile fashion. A Time out was called to ensure the proper patient procedure and extremity were being contemplated. A 15 blade scalpel was used to make a linear incision over the FCR tendon this was carried down through the skin and subcutaneous tissue. Electrocautery was used to maintain hemostasis. Lana retractors were used. The FCR tendon sheath was incised and the FCR tendon was mobilized radially. A deep blade scalpel was used to perforate the fascia of the deep FCR tendon sheath and Littler scissors were used to dissect proximally and distally. Blunt dissection was performed a tono was placed on the radial and ulnar side of the radius. The pronator quadratus was partially torn from the injury and was released off the radial border of the radius with electrocautery and was elevated with a cooper elevator. The Hohmann retractors were then placed deep to this muscle. The fracture site was visualized and was freed of hematoma and clot debris with the use of small rongeur and [place]. The fracture was then attempted to be reduced however due to the intra-articular and comminuted nature it was difficult goal to maintain a reduction. Therefore with pronation traction radial deviation wrist flexion I was able to achieve a reduction and temporarily pinned it through the styloid with 2 K wires this did adequately hold the reduction. This was checked under fluoroscopy to ensure that an adequate reduction could be performed. A plate was then positioned over the fracture site and temporarily fixed to the bone with K wires. A 2 cortical screws were then placed in the shaft and a cortical compression screw distally followed by sequential distal locking screws were placed distally this was checked on both AP and lateral projections to ensure screw placement was not penetrating the joint and was in the proper location. Cone drill sleeve was used for the radial styloid screw in a variable angle fashion. The remainder of the cortical screw was placed in the shaft. And the fracture and hardware were visualized in both AP and lateral projections in good alignment and fracture positioning. The initial cortical screw in the shaft was used as a reduction aid as well as the distal cortical screw both of these were later removed in the case for the appropriate size screws. K wires were were removed the wound was thoroughly irrigated. The DRUJ was palpated and was deemed stable however with radial deviation it did seem there was some widening of the scapholunate interval. pronator quadratus was not repairable. A subcutaneous stitch with 3-0 Vicryl was performed followed by 4-0 nylon vertical mattress stitches. Followed by Xeroform 4 x 4 ABD web roll stockinette more web roll volar paster splint and an Jian wrap. The tourniquet was let down. There was no complications intraoperatively and the patient was brought back to the PACU in stable condition. All counts were correct. Surgical Findings: Comminuted distal intra-articular fracture, scapholunate widening Complications Complications: No
--- NOTE | 2024-12-11 10:35 | EX.PCM.DISCH ---
Discharge Instructions Diet Discharge Diet: No restrictions Dressing / Incision Call your doctor if you observe: Shortness of breath and Chest pain Additional Dressing/Incision Instructions:: Elevate upper extremity above the heart for the next 3 days, encourage finger range of motion as well as elbow and shoulder range of motion. No lifting pushing or pulling operative extremity more than a pencil. Keep dressing clean dry and intact do not remove prior to first postop appointment. Do not allow animals near the incision. Do not take other pain medication without discussion with your surgeon. Okay to supplement narcotic pain medication with 1000 mg of Tylenol 4 times a day and 600 mg of ibuprofen 3 times a day to minimize narcotic use. Do not drink alcohol while on narcotic. Narcotic can be addictive so minimize use to what is needed. Call Dr. Escamilla's office with any questions or concerns. Follow Up Care Please Follow Up With: Ivan Escamilla DO When: 1 week Test Results: Test results from this visit will be discussed in further detail at your follow-up appointment, if applicable. Discharge Plan Admission Primary Reason for Your Visit: Right distal radius open reduction internal fixation Attending Provider: Ivan Escamilla Primary Care Provider: Donna Arnold Instructions Print Language: Danish Discharge Orders/Prescriptions Prescriptions: New oxycodone 5 mg tablet 5 - 10 mg PO Q4H PRN (Reason: pain) 7 Days Qty: 30 0RF ascorbic acid (vitamin C) [Vitamin C] 500 mg tablet 500 mg PO DAILY Qty: 30 0RF Continued estradiol 0.01 % (0.1 mg/gram) cream See Rx Instructions vaginal .COMPLEX Qty: 42.5 2RF Rx Instructions: small amount(.25mg) as directed vaginal every other day X 4 weeks then twice a week; acetaminophen 500 mg tablet 500 mg PO Q6H PRN (Reason: fever or pain) alprazolam 0.5 mg tablet 0.5 mg PO DAILY PRN (Reason: anxiety) Qty: 10 0RF Rx Instructions: Take 1/2 to 1 tablet prior to flying as needed for anxiety. Referrals / Follow Up: Donna Arnold MD [Primary Care Provider] - Disposition Disposition (needs filled in before D/C Order can be placed): Home, Self Care
[2024-12-11] MEDS: Cefazolin 1 GM/50 ML BAG IV (11:58)
--- NOTE | 2024-12-11 12:05 | SUR.PHASEII ---
left arm , non operative arm with rash present on arrival. dr. pollock saw pre op.
--- NOTE | 2024-12-11 19:01 | PCM.POSTANE2 ---
Anesthesia Postop Eval I Sum Postop Eval Completion status Anesthesia document: Postop Eval 1 completed: Yes Anesthesia Postop Eval I Summary Anesthesia Postop Eval I Summary: Anesthesia Postop Eval I: Assessment Summary Airway patent Yes 12/11/24 19:00 Spontaneous unlabored Yes 12/11/24 19:00 respirations Mental status Asleep 12/11/24 19:00 nausea No 12/11/24 19:00 Vomiting No 12/11/24 19:00 Anesthesia Postop Eval I: Fluid Summary Crystalloid volume administer 1,100 12/11/24 19:00 (ml) Colloids volume administered ( ml) Blood Product volume administered (ml) Total IV fluid infused 1,100 12/11/24 19:00 Anesthesia Postop Eval I: Summary Notes Anesthesia Complication No 12/11/24 19:00 Anesthesia Complication Comment: Post-operative progress note Anesthesia: Postop Eval II Evaluation Mental status: Awake and Calm Pain Level: 2 nausea: No Vomiting: No Complications Anesthesia Complication: No
== END 2024-12-11 14:08 | disposition home or self-care (01) ==
LOC: SDC 06:59 → AC 06:59
PROVIDERS: PCP Internal Medicine; Referring Provider Orthopaedic Surgery; Visit Provider Orthopaedic Surgery
PROC: (CPT 25609; principal; 2024-12-11 08:15)
DX: S52.572A Other intraarticular fracture of lower end of left radius, initial encounter for closed fracture (principal); W18.31XA Fall on same level due to stepping on an object, initial encounter
CPT/HCPCS: 25609; 73100; 76000; 93005; C1713; J2405

== ENCOUNTER → 2025-01-01 | Outpatient (CLI) | payer OTHER, SELFPAY ==
--- NOTE | 2025-01-01 08:15 | BI_ITS ---
EXAM: SCRN MAMM (CAD)W/GILMA BILAT DATE: 01/01/2025 CLINICAL HISTORY: F, Age 64 y/o , SCREEN FOR BREAST CANCER Routine screening TECHNIQUE: Procedure Code: BISMWCADBTOM Modality: MG Procedure: SCRN MAMM (CAD)W/GILMA BILAT COMPARISON: Prior exam(s) dated 12/19/2023. FINDINGS: TISSUE DENSITY: There are scattered areas of fibroglandular density. Bilateral Breast Mammographic Findings: No significant masses, calcifications or other abnormalities are identified. No interval change BI/SCRN MAMM (CAD)W/GILMA BILAT IMPRESSION: Stable screening mammogram, no suspicious findings OVERALL FINAL ASSESSMENT BI-RADS 1: NEGATIVE. RECOMMENDATION: Routine annual follow-up in 1 Year Additional Recommendation none A letter with findings and recommendations will be mailed to the patient. Reading Location: [id number]
--- NOTE | 2025-01-01 08:15 | BI_ITS ---
EXAM: SCRN MAMM (CAD)W/GILMA BILAT DATE: 01/01/2025 CLINICAL HISTORY: F, Age 64 y/o , SCREEN FOR BREAST CANCER Routine screening TECHNIQUE: Procedure Code: [id number] Modality: MG Procedure: SCRN MAMM (CAD)W/GILMA BILAT COMPARISON: Prior exam(s) dated 12/19/2023. FINDINGS: TISSUE DENSITY: There are scattered areas of fibroglandular density. Bilateral Breast Mammographic Findings: No significant masses, calcifications or other abnormalities are identified. No interval change BI/SCRN MAMM (CAD)W/GILMA BILAT IMPRESSION: Stable screening mammogram, no suspicious findings OVERALL FINAL ASSESSMENT BI-RADS 1: NEGATIVE. RECOMMENDATION: Routine annual follow-up in 1 Year Additional Recommendation none A letter with findings and recommendations will be mailed to the patient. Reading Location: [id number]
== END | disposition home or self-care (01) ==
PROVIDERS: PCP Internal Medicine; Referring Provider Obstetrics & Gynecology; Visit Provider Obstetrics & Gynecology
DX: Z12.31 Encounter for screening mammogram for malignant neoplasm of breast (principal)
CPT/HCPCS: 77063; 77067

== ENCOUNTER → 2025-01-07 | Outpatient (CLI) | payer OTHER, SELFPAY ==
[2025-01-12 16:09] LABS: HPV APTIMA, High Risk Negative (Negative)
== END | disposition home or self-care (01) ==
LOC: LABSPEC 12:11
PROVIDERS: PCP Internal Medicine; Referring Provider Obstetrics & Gynecology; Visit Provider Obstetrics & Gynecology
DX: Z12.4 Encounter for screening for malignant neoplasm of cervix (principal)
CPT/HCPCS: 87624; 88175; G0145

== ENCOUNTER 2025-01-08 14:00 | Outpatient (RCR) | payer OTHER, SELFPAY ==
--- NOTE | 2025-01-01 15:41 | HP.OTEVAL ---
Patient's Visit Information Visit Information Visit Information: ANGELICA GONZALEZ is a 64 year old F, referred to Occupational Therapy by Dr. Ivan Escamilla DO, with a diagnosis of left inter-artic distal radius fx. Date of Evaluation: 01/01/25 Occupational Therapist: MARINE Green/Jocelyn, CHT Subjective Subjective: This 64 year old female was seen for OT eval with dx of left inter articular fx of distal radius. Pt had fall on 12/01/24 and had sx on 12/11/24. pt arrives 3 weeks s/p from ORIF of distal radius pt is left handed pt is limited with use of left dominate hand with all ADLs and IADls. pt would like to return to her IND. PLOF Pain left wrist: Current Pain Intensity: 1 Pain Intensity Range: 3 ROM Forearm: right WNL left supination 40* pronation WNL Wrist: right 75/60 left 40/25 ROM Comments: right UD 30* RD 20* left RD 10* UD 10* pt demo light fist ability with left incision looks good slightly raised Strength Accounting Bookkeeper: right 55# left NT Lateral Pinch: right 8# left NT Tripod Pinch: right 10# left NT Sensation Thumb: right 2.83 left 2.83 Index: right 2.83 left 2.83 Middle: right 2.83 left 3.61 Ring: right 2.83 left 2.83 Little: right 2.83 left 2.83 Sensation Comments: left MF numbness throughout the day burring tingling by night Quick DASH-Disab of Arm,Shoulder& Hand Quick DASH Score: [phone] Goals Goal:Daily scar massage when approriate: Yes Goal:ROM equal to unaffected hand: Yes Goal:Accounting Bookkeeper/Pinch strength at least 75% of unaffected hand: Yes Goal:No pain with affected hand use: Yes Goal:PIP Circumferences equal to unaffected hand: Yes Goal:Full use of affected hand in daily activities including work: Yes Goal:Improvement in sensation documented by Cullen-Dania monofiliaments: Yes Rehabilitation General Assessment: pt arrives 3 weeks s/p from [facility] of left wrist- demo with limited functional left wrist/forearm ROM/ weakness and newly healing structures limiting use of left dominate hand for daily tasks. pt would benefit from skilled OT services 2-3x week for 6-8 weeks to return pt to her PLOF. Rehabilitation Potential: Good Anticipated Interventions Anticipated Interventions: A/AAROM/PROM, Strengthening, Scar Care, Triggerpoint Release, Modalities, Orthoses, Joint Protection/Energy Conservation, Ergonomic Education, Fine Motor Coord/John[place], Education re assistive Equipment, Education re Diagnosis and Home Program Visit Plan Frequency: 1-2x /Week Duration: 2 Months TEXT: Thank you for the opportunity to evaluate your patient. For Medicare and Medicare HMO plans, please review the plan of care and approve it. It will need to be FAXED BACK to us at [phone] for Medicare purposes. Please let me know if there are questions or concerns regarding this plan of care. Physician Signature: Date:
== END 2025-02-18 12:59 | disposition home or self-care (01) ==
LOC: OT 14:00
PROVIDERS: PCP Internal Medicine; Referring Provider Orthopaedic Surgery; Visit Provider Orthopaedic Surgery
DX: S52.572D Other intraarticular fracture of lower end of left radius, subsequent encounter for closed fracture with routine healing (principal)
CPT/HCPCS: 97166; 97167